=== PATIENT | female | born 1955 | race Caucasian/White ===

== ENCOUNTER → 2017-09-11 13:48 | Outpatient (CLI) | payer OTHER, SELFPAY ==
--- NOTE | 2017-09-11 13:51 | BI_ITS ---
MAMMOGRAPHY - BILATERAL SCREENING REASON FOR EXAM: Female, 61 years old. Routine annual screening examination. PERTINENT HISTORY: Non-contributory. TECHNIQUE: Digital bilateral breast mary (3D mammographic acquisition) in the CC and MLO projections. 2-D mediolateral oblique (MLO) and craniocaudad (CC) views of both breasts were obtained. CAD: Full Field Digital Mammography with Computer Added Detection was performed. COMPARISON: Comparison is made with prior study dated July 26, 2016 and March 24, 2015. FINDINGS: Breast Composition: There are scattered areas of fibroglandular density. There are no dominant masses or suspicious calcifications. Stable 9 mm well-defined nodule in the upper lateral portion of the left breast. This most likely represents a small lymph node. No other significant abnormalities are identified. There has been no significant change since the prior study. BI/SCREENING MAMM (CAD), BILAT IMPRESSION: Stable bilateral screening mammogram. Yearly follow-up mammogram recommended. (A) ASSESSMENT CATEGORY: BIRADS Category 2: Benign. A letter regarding these results will be sent to the patient by the facility within 30 days. Approximately 10% of breast cancers are not detected by mammography. A normal mammogram should not delay biopsy of a clinically suspicious abnormality. [id number] Electronically Signed: Jason Villafuerte MD at 12:42 EDT Tel [phone], Service support ,
== END ==
PROVIDERS: Family Provider Internal Medicine; PCP Internal Medicine; Visit Provider Obstetrics & Gynecology
DX: Z12.31 Encounter for screening mammogram for malignant neoplasm of breast (principal)
CPT/HCPCS: 77063; 77067

== ENCOUNTER 2018-08-23 14:19 | Emergency (ER) | payer OTHER, SELFPAY ==
[2018-08-23 14:19] VITALS: BP 150/90; PULSE 71; RESP 16; TEMP 36.4; O2SAT 99; BMI 34.1
--- NOTE | 2018-08-23 16:35 | ED.VISSUMM ---
- ER Visit Summary Date of Service: 08/23/18 Chief Complaint: Left third finger laceration History of Present Illness: The patient is a 62 F presents for evaluation of a left ring finger laceration. Patient was slicing a cucumber with a clean kitchen knife and accidentally incised her left third fingertip. Tetanus is up-to-date. Patient is right-handed. She went to urgent care but they had difficulty getting the blood controlled so she was referred to the emergency department. She is not on any blood thinners. She does not smoke or use alcohol. She has been using some NSAIDs for recent musculoskeletal pain. Physical Examination: Patient is well-nourished well-developed sitting in bed in no distress. Left third finger is bandaged. Patient has brisk cap refill in the fingertip. Sensation and motor function intact in the finger. Examination shows a triangular-shaped flap involving the epidermis and dermis, attached at the distal portion of the flap, 1 cm x 1 cm x 0.8 cm at the distal flap, on the distal phalanx ulnar surface of the finger pad. Hemorrhage currently controlled. Test Results: [] Emergency Department Course and Treatment: A finger tourniquet was placed at the base of the left third finger. The finger laceration was then copiously irrigated with tap water and cleansed with soap, and the lap was lifted and underlying incision was also irrigated. There is limited attachment of the flap to the finger with the blood supply being at the distal portion of the flap. It is superficial enough that at this time, suturing is not indicated. The flap was replaced into its physiologic location and the medial and lateral edges were dermabonded in place. It was secured with Steri-Strips. The tourniquet was removed. Hemostasis was maintained. It was dressed and patient was given wound care instructions. She was discharged home and will return if any worsening or rebleeding without ability to control it at home with direct pressure. Treatment Plan: [] Disposition: [] Impression: Incision of left middle finger This note was generated with [employer] dictation software. It may contain incorrect words, spelling, and punctuation that were not noted in review of the chart prior to signing ED Disposition - Plan for ED Patient: Disposition: Home or Assisted Living Instructions: ED Laceration Ext Skin Glue, ED Laceration Hand Referrals: Laura Mckeon MD [Primary Care Provider] - 3-5 Days if not improving Additional Instructions: Leave the bandage in place on your finger for the next 24 hours. Do not use antibacterial ointment on the incision while the Steri-Strips are still in place, as this will make them loosen and come off. You may gently cleanse the area with warm water and gentle soap, but do not scrub, soak or move the Steri-Strips. If at any time you have severe pain, swelling, redness, red streaking, or any purulent discharge coming from under the flap, return immediately to the emergency department for another evaluation.
== END 2018-08-23 16:50 | disposition home or self-care (01) ==
PROVIDERS: Emergency Provider Emergency Medicine; Family Provider Internal Medicine; PCP Internal Medicine
DX: S61.213A Laceration without foreign body of left middle finger without damage to nail, initial encounter (principal); W26.0XXA Contact with knife, initial encounter; Y93.G1 Activity, food preparation and clean up; Y92.000 Kitchen of unspecified non-institutional (private) residence as the place of occurrence of the external cause; Y99.8 Other external cause status
CPT/HCPCS: 99282

== ENCOUNTER → 2018-09-11 | Outpatient (CLI) | payer OTHER, SELFPAY ==
[2018-08-23 14:19] VITALS: BMI 34.1
[2018-09-18 09:10] LABS: HPV Reflexed? NOT INDICATED
== END | disposition home or self-care (01) ==
LOC: LABSPEC 16:10
PROVIDERS: Visit Provider Obstetrics & Gynecology
DX: Z12.4 Encounter for screening for malignant neoplasm of cervix (principal)
CPT/HCPCS: 87624; 88175; G0145

== ENCOUNTER → 2018-09-26 | Outpatient (CLI) | payer OTHER, SELFPAY ==
--- NOTE | 2018-09-26 13:22 | BI_ITS ---
MAMMOGRAPHY - BILATERAL SCREENING 3-D TOMOSYNTHESIS REASON FOR EXAM: Female, 62 years old. Bilateral Screening 3-D tomosynthesis PERTINENT HISTORY: No significant family history. TECHNIQUE: 2-D mammograms and 3-D Tomosynthesis of the breast (s) were performed. CAD was performed. COMPARISON: September 13, 2017 FINDINGS: Breast composition: scattered fibroglandular tissue. No dense spiculated masses or suspicious microcalcifications are identified. No architectural distortion is identified. There is no skin thickening or retraction. There has been no significant change since the prior study of 09/13/2017 BI/SCREEN MAMM (CAD) W/SCOTT BILAT IMPRESSION: No mammographic signs of malignancy. Routine yearly mammograms recommended. ASSESSMENT CATEGORY: BIRADS Category 1: Negative. A letter regarding these results will be sent to the patient by the facility within 30 days. FOLLOW UP RECOMMENDATION: Yearly follow up mammogram recommended. (A) Approximately 10% of breast cancers are not detected by mammography. A normal mammogram should not delay biopsy of a clinically suspicious abnormality. Electronically Signed: Harish Monae, at 15:11 EDT Tel , Service support ,
== END | disposition home or self-care (01) ==
LOC: OPBI 13:20
PROVIDERS: Family Provider Internal Medicine; PCP Internal Medicine; Referring Provider Obstetrics & Gynecology; Visit Provider Obstetrics & Gynecology
DX: Z12.31 Encounter for screening mammogram for malignant neoplasm of breast (principal)
CPT/HCPCS: 77063; 77067

== ENCOUNTER → 2019-09-17 14:12 | Outpatient (CLI) | payer OTHER, SELFPAY ==
--- NOTE | 2019-09-17 11:45 | EMB_PTH ---
PATIENT: CHASITY HURT LOC: [facility] U#:[id number] AGE/SX: 69/F ROOM: RE09/17/[address]: Dr. Levi Munoz MD : 1955 BED: DIS: SPEC #: [id number] RECD: 09/17/19 13:56 STATUS: BALAJI REQ #: [id number] DORY: 09/17/19 11:[address]: Levi Munoz DEPT: SURGICAL PATHOLOGY RECD BY: Andreas Dougherty ENTERED: 09/18/19 08:18 SP TYPE: ENDOM BX/C CHERIE DR: Dr. Laura Mckeon MD Tissues: Endometrium, NOS Procedures: Surgery Specimen Level IV HEADER OPERATION: Endometrial biopsy PRE-OP DIAGNOSIS: N95.0 TISSUE SUBMITTED: Endometrial biopsy MICROSCOPIC DIAGNOSIS Endometrium, biopsy: Scant strips of benign glandular mucosa. AM:mervin 09/21/19 MICROSCOPIC DESCRIPTION Slides are reviewed. GROSS DESCRIPTION Received in fixative is one container labeled with the patient's name and designated endometrial biopsy. The specimen consists of multiple irregular fragments of light davis mucoid tissue that in aggregate measure 1 x 0.5 x <0.1 cm. The specimen is totally submitted in one cassette. / AM:mervin 09/18/19 TC:5 CPT: 89326
[2019-09-22 16:34] LABS: HPV Reflexed? NOT INDICATED
== END ==
PROVIDERS: PCP Internal Medicine; Referring Provider Obstetrics & Gynecology; Visit Provider Obstetrics & Gynecology
DX: Z12.4 Encounter for screening for malignant neoplasm of cervix (principal); N95.0 Postmenopausal bleeding
CPT/HCPCS: 88175; 88305; G0145

== ENCOUNTER → 2019-10-05 | Outpatient (CLI) | payer OTHER, SELFPAY ==
--- NOTE | 2019-10-05 12:32 | BI_ITS ---
MAMMOGRAPHY - BILATERAL SCREENING REASON FOR EXAM: Female, 63 years old. Routine annual screening examination. PERTINENT HISTORY: Non-contributory. Remote left stereotactic breast biopsy. TECHNIQUE: Digital bilateral breast scott (3D mammographic acquisition) in the CC and MLO projections. 2-D mediolateral oblique (MLO) and craniocaudad (CC) views of both breasts were obtained. CAD: Full Field Digital Mammography with Computer Added Detection was performed. COMPARISON: Comparison is made with prior examination dated September 26, 2018 and September 11, 2017. FINDINGS: Breast Composition: There are scattered areas of fibroglandular density. There are no dominant masses or suspicious calcifications. Stable 6.4 mm well-defined nodule in the axillary region of the left breast suggestive of a small benign-appearing lymph node. No other significant abnormalities are identified. There has been no significant change since the prior study. BI/SCREEN MAMM (CAD) W/SCOTT BILAT IMPRESSION: Stable bilateral screening mammogram. Yearly follow-up mammogram recommended. (A) ASSESSMENT CATEGORY: BIRADS Category 2: Benign. A letter regarding these results will be sent to the patient by the facility within 30 days. Approximately 10% of breast cancers are not detected by mammography. A normal mammogram should not delay biopsy of a clinically suspicious abnormality. [id number] Electronically Signed: Jason Villafuerte, at 13:53 EDT , Service support ,
== END | disposition home or self-care (01) ==
LOC: OPBI 12:30
PROVIDERS: PCP Internal Medicine; Referring Provider Obstetrics & Gynecology; Visit Provider Obstetrics & Gynecology
DX: Z12.31 Encounter for screening mammogram for malignant neoplasm of breast (principal)
CPT/HCPCS: 77063; 77067

== ENCOUNTER → 2020-11-03 11:11 | Outpatient (CLI) | payer OTHER, SELFPAY ==
--- NOTE | 2020-11-03 11:18 | BI_ITS ---
MAMMOGRAPHY - BILATERAL SCREENING REASON FOR EXAM: Female, 64 years old. Routine annual screening examination. PERTINENT HISTORY: Previously obtained on 10/05/2019 TECHNIQUE: Digital bilateral breast scott (3D mammographic acquisition) in the CC and MLO projections. 2-D mediolateral oblique (MLO) and craniocaudad (CC) views of both breasts were obtained. CAD: Full Field Digital Mammography with Computer Added Detection was performed. COMPARISON: Previous mammogram obtained on 11/03/2020 FINDINGS: Breast Composition: Heterogeneous There are no dominant masses or suspicious calcifications. There is a nodular density noted in the superior lateral aspect of the left breast which is smooth and rounded and was seen previously and is unchanged. This probably represents a fibroadenoma and/or cyst. BI/SCRN MAMM (CAD)W/SCOTT BILAT IMPRESSION: Stable bilateral screening mammogram. Yearly follow-up mammogram recommended. (A) ASSESSMENT CATEGORY: BIRADS Category 2: Benign. A letter regarding these results will be sent to the patient by the facility within 30 days. BR2 Approximately 10% of breast cancers are not detected by mammography. A normal mammogram should not delay biopsy of a clinically suspicious abnormality. [id number] Electronically Signed: Levi Fraire DO at 12:17 EDT Tel , Service support ,
== END ==
PROVIDERS: PCP Internal Medicine; Referring Provider Obstetrics & Gynecology; Visit Provider Obstetrics & Gynecology
DX: Z12.31 Encounter for screening mammogram for malignant neoplasm of breast (principal)
CPT/HCPCS: 77063; 77067

== ENCOUNTER → 2021-11-24 | Outpatient (CLI) | payer OTHER, SELFPAY ==
[2021-12-03 14:13] LABS: HPV APTIMA, High Risk Negative (Negative)
== END | disposition home or self-care (01) ==
LOC: LABSPEC 11-27 09:57
PROVIDERS: PCP Internal Medicine; Visit Provider Obstetrics & Gynecology
DX: Z12.4 Encounter for screening for malignant neoplasm of cervix (principal)
CPT/HCPCS: 87624; 88175; G0145

== ENCOUNTER → 2023-05-29 | Outpatient (CLI) | payer MEDICARE, SELFPAY ==
[2023-05-29 15:45] LABS: ALB/GLOB Ratio 1.6 RATIO (0.9-2.4); AST(SGOT) 15 U/L (15-37); Alanine Aminotransfer ALT/SGPT 23 U/L (13-56); Albumin, Serum 4.7 g/dL (3.2-5.0); Alkaline Phosphatase 34 U/L (45-117); Anion Gap 7 (5-15); BUN 19 mg/dL (7-18); BUN/Creat Ratio 21.9 RATIO (10-20); Calcium,Total 10.2 mg/dL (8.5-10.1); Chloride 106 mmol/L (98-107); Cholesterol 152 mg/dL (200); Creatinine, Serum 0.87 mg/dL (0.55-1.02); EST Glomerular Filtration Rate 70 mL/min (>60); Est Glom Filt Rate - Afr Amer 84 mL/min (>60); Glucose 109 mg/dL (74-106); High Density Lipoprotein 58 mg/dL; Potassium 4.3 mmol/L (3.5-5.1); Protein, Total 7.7 g/dL (6.4-8.2); Sodium Level 139 mmol/L (136-145); Thyroid Stim Hormone (TSH) 0.79 uIU/mL (0.358-3.74); Triglycerides 90 mg/dL; Very Low Density Lipoprotein 18 mg/dL (5-40)
[2023-05-29 16:21] LABS: Microalbumin,Random Urine 16.1 mg/L (NO RANGE EST.); Microalbumin:Creatinine Ratio 32.7 mg/g CRE (<30 mg/g CRE)
== END | disposition home or self-care (01) ==
LOC: LAB 14:30
PROVIDERS: PCP Internal Medicine; Referring Provider Nurse Practitioner Family; Visit Provider Nurse Practitioner Family
DX: E11.3293 Type 2 diabetes mellitus with mild nonproliferative diabetic retinopathy without macular edema, bilateral (principal); Z79.4 Long term (current) use of insulin
CPT/HCPCS: 36415; 80053; 80061; 82043; 82570; 84443

== ENCOUNTER → 2023-05-30 | Outpatient (CLI) | payer MEDICARE, SELFPAY ==
[2023-05-30 13:44] LABS: PTHIN 19.8 pg/mL (18.4-80.1)
[2023-05-30 13:47] LABS: Vitamin D,25 Hydroxy 37.2 ng/mL
== END | disposition home or self-care (01) ==
LOC: LAB 12:37
PROVIDERS: PCP Internal Medicine; Referring Provider Nurse Practitioner Family; Visit Provider Nurse Practitioner Family
DX: E55.9 Vitamin D deficiency, unspecified (principal)
CPT/HCPCS: 36415; 82306; 83970

== ENCOUNTER → 2024-05-12 | Outpatient (CLI) | payer MEDICARE, SELFPAY ==
--- NOTE | 2024-05-12 06:54 | BI_ITS ---
PROCEDURE: SCRN MAMM (CAD)W/SCOTT BILAT REASON FOR EXAM: F, Age 68 y/o, no family history. Routine mammographic examination. TECHNIQUE: Bilateral screening digital breast tomosynthesis with 2D and 3D images. Computer aided detection. COMPARISON: Prior exam(s) dating back to November 03, 2020.. FINDINGS: There are scattered areas of fibroglandular density. Stable 6.4 mm well-defined nodule in the deep upper lateral aspect of the left breast. Targeted sonographic correlation recommended. No suspicious masses, areas of developing architectural distortion, or suspicious calcifications. BI/SCRN MAMM (CAD)W/SCOTT BILAT IMPRESSION: BI-RADS 0: INCOMPLETE - NEED ADDITIONAL IMAGING EVALUATION. Follow-up code: Sonographic follow-up recommended. The patient will be notified of the results by letter. Reading Location: [place] [id number]
--- NOTE | 2024-05-12 06:58 | BD_ITS ---
PROCEDURE: DEXA BONE DENSITY STUDY REASON FOR EXAM: F, age 68 y/o . Patient is postmenopausal.. TECHNIQUE: DEXA scan of the lumbar spine and both hips. COMPARISON: None. FINDINGS: Lumbar Spine (L1-L4): g/cm2 (1.052)/T-score (0.0)/Z-score (1.9) findings are suggestive of normal with a low fracture risk. Left Femur Total: g/cm2 (0.950)/T-score (0.1)/Z-score (1.4) Left Femoral Neck: g/cm2 (0.824)/T-score (-0.2)/Z-score (1 point) Right Femur Total: g/cm2 (0.895)/T-score (-0.4)/Z-score (0.9) Right Femoral Neck: g/cm2 (0.772)/T-score (-0.7)/Z-score 0.9 BD/Dexa Bone Density Study IMPRESSION: (The patient is considered normal as outlined below according to [employer] (WHO) criteria with a low fracture risk. Reading Location: [id number]
== END | disposition home or self-care (01) ==
LOC: OPBD 06:53
PROVIDERS: PCP Internal Medicine; Referring Provider Nurse Practitioner Women's Health; Visit Provider Nurse Practitioner Women's Health
DX: Z12.31 Encounter for screening mammogram for malignant neoplasm of breast (principal); M81.0 Age-related osteoporosis without current pathological fracture
CPT/HCPCS: 77063; 77067; 77080

== ENCOUNTER → 2024-05-21 | Outpatient (CLI) | payer MEDICARE, SELFPAY ==
--- NOTE | 2024-05-21 10:55 | US_ITS ---
PROCEDURE: BREAST LIMITED UNILATERAL REASON FOR EXAM: Abnormal screening mammogram. TECHNIQUE: Targeted left breast sonogram. COMPARISON: Comparison is made with prior mammogram dated May 12, 2024. FINDINGS: LEFT: Left breast ultrasound was targeted to the upper-outer quadrant.. There is a 7 mm x 4 mm x 2 mm benign-appearing lymph node at the 1 o'clock position of the breast at 6 cm from the nipple. US/Breast Limited Unilateral IMPRESSION: 7 mm x 4 mm x 2 mm benign-appearing lymph node at the 1 o'clock position of the breast at 6 cm from the nipple. Follow-up code: Routine Follow-up BI-RADS category: 2 [id number]
== END | disposition home or self-care (01) ==
LOC: OPUS 10:54
PROVIDERS: PCP Internal Medicine; Referring Provider Nurse Practitioner Women's Health; Visit Provider Nurse Practitioner Women's Health
DX: R92.8 Other abnormal and inconclusive findings on diagnostic imaging of breast (principal)
CPT/HCPCS: 76642

== ENCOUNTER → 2024-05-27 | Outpatient (CLI) | payer MEDICARE, SELFPAY ==
[2024-05-27 15:14] LABS: Absolute Lymphocyte Count 1.56 X10^3/uL (0.83-4.51); Absolute Neutrophil Count 2.9 X10^3/uL (2.0-7.7); Basophil# 0.02 X10^3/uL; Basophil% 0.4 % (0-1); Eosinophil# 0.04 X10^3/uL; Eosinophils% 0.8 % (0-5); Hematocrit 35.7 % (37-47); Hemoglobin 11.4 g/dL (12.0-15.0); Lymphocyte # 1.56 X10^3/ul (0.83-4.51); Lymphocyte % 31.7 % (19-41); Mean Corp Hgb Conc 31.9 g/dL (32-36); Mean Corpuscular Hgb 28.4 pg (27.0-32.0); Mean Platelet Vol. 10.2 fl (6.2-12.0); Monocyte# 0.36 X10^3/uL; Monocyte% 7.3 % (0-10); NRBC Flagged by Analyzer 0 % (0-5); Neutrophil # 2.93 X10^3/uL (2.7-7.7); Neutrophil % 59.6 % (47-70); Platelet Count 305 K/mm3 (150-450); RBC Distribution Width CV 14.1 % (11.6-14.6); RBC Distribution Width SD 45.8 fl (35.1-43.9); Red Blood Count 4.01 M/mm3 (4.2-5.4); White Blood Count 4.9 K/mm3 (4.4-11.0)
[2024-05-27 16:13] LABS: Microalbumin,Random Urine 21.3 mg/L (NO RANGE EST.)
[2024-05-27 16:16] LABS: AST(SGOT) 18 U/L (<=31); Alanine Aminotransfer ALT/SGPT 15 U/L (<=34); Albumin, Serum 4.8 g/dL (3.4-4.8); Alkaline Phosphatase 31 U/L (35-104); Anion Gap 11 (5-15); BUN 20 mg/dL (4-19); BUN/Creat Ratio 24.8 RATIO (10-20); Calcium 9.4 mg/dL (7.6-11.0); Carbon Dioxide 23.4 mmol/L (22.0-29.0); Chloride 105 mmol/L (96-108); Cholesterol 131 mg/dL (<=200); Creatinine, Serum 0.8 mg/dL (0.6-1.0); EST Glomerular Filtration Rate 83 (>60); Globulin 2.3 g/dL (2.2-4.2); Glucose 100 mg/dL (70-99); High Density Lipoprotein 54 mg/dL; Low Density Lipoprotein Calc. 62 mg/dL; Potassium 4.4 mmol/L (3.3-5.1); Protein, Total 7.1 g/dL (5.9-8.4); Sodium Level 139 mmol/L (133-145); Thyroid Stim Hormone (TSH) 0.392 uIU/mL (0.300-4.200); Triglycerides 78 mg/dL; Very Low Density Lipoprotein 16 mg/dL (5-40); cholesterol:hdl ratio screen 2.43
== END | disposition home or self-care (01) ==
LOC: LAB 14:37
PROVIDERS: PCP Internal Medicine; Referring Provider Nurse Practitioner Family; Visit Provider Nurse Practitioner Family
DX: E11.3293 Type 2 diabetes mellitus with mild nonproliferative diabetic retinopathy without macular edema, bilateral (principal); Z79.4 Long term (current) use of insulin
CPT/HCPCS: 36415; 80053; 80061; 82043; 82570; 84443; 85025

== ENCOUNTER → 2025-01-04 | Outpatient (CLI) | payer MEDICARE, SELFPAY ==
--- NOTE | 2025-01-04 08:43 | CDU_ITS ---
Reason For Study Reason For Study: Carotid Stenosis Rt. Velocities/BP Lt. Velocities/BP Prox CCA 75/21 cm/sec. Prox CCA 88/22 cm/sec. Mid CCA 91/21 cm/sec. Mid CCA 71/23 cm/sec. Dist CCA 74/20 cm/sec. Dist CCA 64/19 cm/sec. Prox ICA 74/20 cm/sec. Prox ICA 85/23 cm/sec. Mid ICA 110/31 cm/sec. Mid ICA 100/27 cm/sec. Dist ICA 79/27 cm/sec. Dist ICA 122/30 cm/sec. Rt. ICA/CCA = 1.2. Lt. ICA/CCA = 1.7. Prox ECA 86/10 cm/sec. Prox ECA 98/12 cm/sec. Rt. Vert. 43/13 cm/sec. Lt. Vert. 67/14 cm/sec. Right Extracranial There is intimal thickening but no significant atherosclerotic plaque noted in the right common carotid artery. There is heterogeneous, irregular atherosclerotic plaque noted in the right internal carotid artery. There is heterogeneous, irregular atherosclerotic plaque noted in the right external carotid artery. Antegrade flow is noted in the right vertebral artery. Left Extracranial There is intimal thickening but no significant atherosclerotic plaque noted in the left common carotid artery. There is heterogeneous, irregular atherosclerotic plaque noted in the left internal carotid artery. There is intimal thickening but no significant atherosclerotic plaque noted in the left external carotid artery. Antegrade flow is noted in the left vertebral artery. Procedure Carotid Duplex [id number]. This is a Carotid Duplex examination using B-mode, color flow and specral Doppler. Exam performed in department. VL/Carotid Duplex Ultrasound Interpretation Summary Mild (<50%) stenosis right extracranial internal carotid. Mild (<50%) stenosis left extracranial internal carotid. Flow within the vertebral arteries is antegrade bilaterally. Ordering Physician: Frank Torre Referring Physician: Jihan Hernandez Performed By: Alice Torres, RDCS, RVT
--- NOTE | 2025-01-04 08:43 | CDU_ITS ---
Reason For Study Reason For Study: Carotid Stenosis Rt. Velocities/BP Lt. Velocities/BP Prox CCA 75/21 cm/sec. Prox CCA 88/22 cm/sec. Mid CCA 91/21 cm/sec. Mid CCA 71/23 cm/sec. Dist CCA 74/20 cm/sec. Dist CCA 64/19 cm/sec. Prox ICA 74/20 cm/sec. Prox ICA 85/23 cm/sec. Mid ICA 110/31 cm/sec. Mid ICA 100/27 cm/sec. Dist ICA 79/27 cm/sec. Dist ICA 122/30 cm/sec. Rt. ICA/CCA = 1.2. Lt. ICA/CCA = 1.7. Prox ECA 86/10 cm/sec. Prox ECA 98/12 cm/sec. Rt. Vert. 43/13 cm/sec. Lt. Vert. 67/14 cm/sec. Right Extracranial There is intimal thickening but no significant atherosclerotic plaque noted in the right common carotid artery. There is heterogeneous, irregular atherosclerotic plaque noted in the right internal carotid artery. There is heterogeneous, irregular atherosclerotic plaque noted in the right external carotid artery. Antegrade flow is noted in the right vertebral artery. Left Extracranial There is intimal thickening but no significant atherosclerotic plaque noted in the left common carotid artery. There is heterogeneous, irregular atherosclerotic plaque noted in the left internal carotid artery. There is intimal thickening but no significant atherosclerotic plaque noted in the left external carotid artery. Antegrade flow is noted in the left vertebral artery. Procedure Carotid Duplex [id number]. This is a Carotid Duplex examination using B-mode, color flow and specral Doppler. Exam performed in department. VL/Carotid Duplex Ultrasound Interpretation Summary Mild (<50%) stenosis right extracranial internal carotid. Mild (<50%) stenosis left extracranial internal carotid. Flow within the vertebral arteries is antegrade bilaterally. Ordering Physician: Frank Torre Referring Physician: Jihan Hernandez Performed By: Alice Torres, RDCS, RVT
--- OUTSIDE RECORDS SUMMARY | 2025-01-04 09:26 | XMS RPT_ITS | CCD ---
Author Organization [facility] Care Team Providers Care Anesthesiologist Assistant Certified Name Role Phone Chilo Mckeon MD Primary Care Provider [facility], [place] Unavailable [facility], [place] Unavailable Dr. Chilo Mckeon Primary Care Provider Dr. Chilo Mckeon Referring Provider Dr. Melquiades Scherer Attending Provider Chilo Mckeon MD Primary Care Provider [facility], [place] Unavailable [facility], [place] Unavailable Chilo Mckeon MD Primary Care Provider [facility], [place] Unavailable [facility], [place] Unavailable [facility], [place] Unavailable Dr. Chilo Mckeon Primary Care Provider Dr. Chilo Mckeon Referring Provider Dr. Hector Hernandez Attending Provider [phone] ROSALIA Gomez Attending Provider Dr. Hector Hernandez Primary Care Provider Chilo Mckeon MD Primary Care Provider Eliezer SUPERVISOR OF RESEARCH.WRAPPER STEMMER HAND, Peyton Unavailable Lm SUPERVISOR OF RESEARCH.PROJECT CONSTRUCTION MANAGER, Karo Unavailable Lm SUPERVISOR OF RESEARCH.PROJECT CONSTRUCTION MANAGER, Karo Unavailable [phone] David GALLO, Dr. Bobo Attending Provider David GALLO, Dr. Bobo Referring Provider Powers IRRIGATOR-C, Barbara Attending Provider Hedy IRRIGATOR-C, Barbara Referring Provider David GALLO, Dr. Bobo Primary Care Provider [phone] Jason IRRIGATOR-C, Sylwia Attending Provider Jason IRRIGATOR-C, Sylwia Referring Provider Lm SUPERVISOR OF RESEARCH.PROJECT CONSTRUCTION MANAGER, Karo Unavailable David GALLO, Dr. Bobo Primary Care Provider [phone] Dr. Hector Hernandez MD Referring Provider Jason IRRIGATOR-C, Sylwia Attending Provider Hector Hernandez MD Primary Care Provider [phone] [place], Hector Referring Unavailable Jason, Sylwia Attending Unavailable [place], Hector Primary Care Unavailable David, Hector Primary Care Unavailable JasonTeddyn Attending Unavailable [place], Hector Referring Unavailable [place], Hector Referring Unavailable [place], Hector Attending Unavailable Hedy IRRIGATOR, Barbara Attending Unavailable Hedy IRRIGATOR, Barbara Referring Unavailable David, Hector Primary Care Unavailable Powers IRRIGATOR, Barbara Attending Unavailable Hedy IRRIGATOR, Barbara Referring Unavailable David, Hector Primary Care Unavailable [place], Hector Primary Care Unavailable Jason Sylwia Attending Unavailable Jason, Sylwia Referring Unavailable Allergies Allergy Classification Reported Allergen(s) Allergy Type Date of Onset Reaction(s) Facility (5 sources) Penicillins Drug Allergy 2 [facility] (20 sources) Sulfacetamide Drug Allergy 2 [facility] (13 sources) Penicillins Drug Allergy 2 [facility] (5 sources) Penicillins Propensity to adverse reactions 2 [facility] [place] (5 sources) Sulfonamides (Antibiotic) Propensity to adverse reactions 2 Rash [facility] (2 sources) Penicillins Drug Allergy 2 [facility] (1 source) Penicillins Drug allergy (disorder) 5 [facility] (1 source) Sulfonamides (Antibiotic) Drug allergy (disorder) 5 [facility] Medications Current Medications Medication Drug Class(es) Dates Sig (Normalized) Sig (Original) Blood-Glucose Meter,Continuous (Freestyle Tyler 3 [place]) misc (1 source) Start: 11-27-2023 Blood-Glucose Meter,Continuous (Freestyle Tyler 3 [place]) misc Active 0 .Route 1 November 27, 2023 12:00am As directed Blood-Glucose Sensor (Freestyle Tyler 3 Plus Sensor) device (5 sources) Start: 11-11-2024 Blood-Glucose Sensor (Freestyle Tyler 3 Plus Sensor) device Active 0 .ROUTE .COMPLEX 6 3 November 11, 2024 9:07am Diabetes mellitus 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 CHANGE SENSOR EVERY 15 DAYS DIRECTED Start: 05-27-2024 Blood-Glucose Sensor (Freestyle Tyler 3 Plus Sensor) device Active 0 .Route 1 May 27, 2024 1:00am Diabetes mellitus jail (current) use of insulin As directed Start: 05-27-2024 End: 11-11-2024 Blood-Glucose Sensor (Freest yle Tyler 3 Plus Sensor) device Discontinued 0 .Route 6 May 27, 2024 1:00am November 11, 2024 9:07am Diabetes mellitus 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 1 sensor q 15 days Start: 05-27-2024 Blood-Glucose Sensor (Freestyle Tyler 3 Plus Sensor) device Active 0 .Route 1 May 27, 2024 1:00am As directed Start: 05-27-2024 Blood-Glucose Sensor (Freestyle Tyler 3 Plus Sensor) device Active 0 .Route 6 May 27, 2024 1:00am 1 sensor q 15 days Blood-Glucose,Artist Woodblock,Cont (Freestyle Tyler 3 [place]) misc (1 source) Start: 11-27-2023 Blood-Glucose,Artist Woodblock,Cont (Freestyle Tyler 3 [place]) misc Active 0 .Route 1 0 November 27, 2023 12:00am Diabetes mellitus jail (current) use of insulin As directed cholecalciferol 0.125 mg ora l capsule (5 sources) Vitamin D Start: 09-25-2021 take 1 capsule by mouth once daily Cholecalciferol (Vitamin D3) 125 mcg (5,000 unit) capsule Active 125 ug PO DAILY September 25, 2021 12:00am cholecalciferol, vitamin D3, (VITAMIN D3 ORAL) (15 sources) take 3 capsules by mouth once daily cholecalciferol, vitamin D3, (VITAMIN D3 ORAL) Take 5,000 Units by mouth once daily. Taking 3 capsules once daily Active take 3 capsules by mouth once da mel cholecalciferol, vitamin D3, (VITAMIN D3 ORAL) Take 5,000 Units by mouth once daily. Taking 3 capsules once daily 0 Active Comment on above: Take 5,000 Units by mouth once daily. Taking 3 capsules once daily citalopram 20 mg oral tablet (20 sources) Serotonin Reuptake Inhibitor Start: 9 End: 5 take 1 tablet by mouth once daily citalopram (CELEXA) 20 mg tablet Take 1 tablet by mouth once daily. ID#[id number] 90 tablet 3 08/28/2022 Active Comment on above: Take 1 tablet by teetee th once daily. ID#[id number] COMPOUNDED PRESCRIPTION (20 sources) Start: 2 COMPOUNDED PRESCRIPTION Allergy shots two shots all year long once a week. 04/20/2011 Active Start: 04-20-2011 COMPOUNDED PRE SCRIPTION Allergy shots two shots all year long once a week. 0 04/20/2011 Active Comment on above: Allergy shots two sh ots all year long once a week. CPAP (20 sources) Start: 03-11-2021 CPAP Indications: GABBIE on CPAP For replacement of recalled CPAP (continue current settlings 10cm H2O): Continue Mask (per patient preference) optional chin strap (if indicated) , filters, tubing, humidifier and lifetime supplies as needed. (G47.33, Z99.89) GABBIE on CPAP 1 Each 03/11/2021 Active Start: 03-11-2021 CPAP Indicatio ns: GABBIE on CPAP For replacement of recalled CPAP (continue current settlings 10cm H2O): Continue Mask (per patient preference) optional chin strap (if indicated) , filters, tubing, humidifier and lifetime supplies as needed. (G47.33, Z99.89) GABBIE on CPAP 1 Each 0 03/11/2021 Active Comment on above: For replacement of r ecalled CPAP (continue current settlings 10cm H2O): Continue Mask (per patient preference) optional chin strap (if indicated) , filters, tubing, humidifier and lifetime supplies as needed. (G47.33, Z99.89) GABBIE on CPAP fenofibrate 145 mg oral tablet (20 sources) Peroxisome Proliferator Receptor alpha Agonist Start: 03-03-20 End: 11-19-19 25 fenofibrate nanocrystallized (TRICOR) 145 mg tablet Indications: Mixed hyperlipidemia take 1 tablet daily 90 tablet 3 02/25/2023 Active Comment on above: Take 1 tablet by teetee once daily. ID#[id number] ferrous sulfate 325 mg oral tablet (5 sources) Start: 09-26-19 take 1 tablet by mouth once daily Ferrous Sulfate (Feosol) 325 mg (65 mg iron) tablet Active 325 mg PO DAILY September 25, 2021 12:00am flash glucose scanning reader (FREESTYLE TYLER 2 READER) (20 sources) Start: 03-03-20 flash glucose scanning reader (FREESTYLE TYLER 2 READER) Indications: Uncontrolled type 2 diabetes mellitus with hyperglycemia (HCC) Check sugars as directed. (E11.65) Uncontrolled type 2 diabetes mellitus with hyperglycemia (HCC) 1 Each 03/03/2021 Active Start: 03-03-2021 flash glucose scanning reader (FREESTYLE TYLER 2 READER) Indications: Uncontrolled type 2 diabetes mellitus with hyperglycemia (HCC) Check sugars as directed. (E11.65) Uncontrolled type 2 diabetes mellitus with hyperglycemia (HCC) 1 Each 0 03/03/2021 Active Comment on above: Check sugars as dire cted. (E11.65) Uncontrolled type 2 diabetes mellitus with hyperglycemia (HCC) flash glucose sensor (FREESTYLE TYLER 2 SENSOR) kit (20 sources) Start: 03-03-2021 flash glucose sensor (FREESTYLE TYLER 2 SENSOR) kit Indications: Uncontrolled type 2 diabetes mellitus with hyperglycemia (HCC) 1 Each every 2 weeks. (E11.65) Uncontrolled type 2 diabetes mellitus with hyperglycemia (HCC) 6 Each 4 03/03/2021 Active Comment on above: 1 Each every 2 weeks . (E11.65) Uncontrolled type 2 diabetes mellitus with hyperglycemia (HCC) Insulin Glargine-Yfgn (Semglee(Insulin Glarg-Yfgn)Pen) 100 unit/mL (3 mL) insulin pen (14 sources) Start: 05-05-2024 Insulin Glargine-Yfgn (Semglee(Insulin Glarg-Yfgn)Pen) 100 unit/mL (3 mL) insulin pen Active 20 U SC DAILY 18 04May 05, 2024 3:27pm Diabetes mellitus jail (current) use of insulin Start: 05-05-2024 Insulin Glargi ne-Yfgn (Semglee(Insulin Glarg-Yfgn)Pen) 100 unit/mL (3 mL) insulin pen Active 20 U SC DAILY May 05, 2024 3:27pm Start: 11-27-2023 End: 05-05-2024 Insulin Glargine-Yfgn (Semgl ee(Insulin Glarg-Yfgn)Pen) 100 unit/mL (3 mL) insulin pen Discontinued 20 U SC DAILY 18 04November 27, 2023 2:06pm May 05, 2024 3:27pm Diabetes mellitus jail (current) use of insulin Start: 11-27-2023 End: 05-05-2024 Insulin Glargine-Yfgn (Semgl ee(Insulin Glarg-Yfgn)Pen) 100 unit/mL (3 mL) insulin pen Discontinued 20 U SC DAILY November 27, 2023 2:06pm May 05, 2024 3:27pm Start: 08-21-2023 End: 11-27-2023 Insulin Glargine-Yfgn (Semgl ee(Insulin Glarg-Yfgn)Pen) 100 unit/mL (3 mL) insulin pen Discontinued 20 U SC DAILY August 21, 2023 1:13pm November 27, 2023 2:06pm Diabetes mellitus 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 Start: 08-21-2023 End: 11-27-2023 Insulin Glargine-Yfgn (Semgl ee(Insulin Glarg-Yfgn)Pen) 100 unit/mL (3 mL) insulin pen Discontinued 20 U SC DAILY August 21, 2023 1:13pm November 27, 2023 2:06pm Start: 12-31-2022 End: 01-08-2023 Insulin Glargine-Yfgn (Semgl ee(Insulin Glarg-Yfgn)Pen) 100 unit/mL (3 mL) insulin pen Discontinued 35 U SC DAILY 31.5 1 December 31, 2022 9:54am January 08, 2023 2:06pm Diabetes mellitus 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 Start: 12-31-2022 End: 01-08-2023 Insulin Glargine-Yfgn (Semgl ee(Insulin Glarg-Yfgn)Pen) 100 unit/mL (3 mL) insulin pen Discontinued 35 U SC DAILY 31.5 December 31, 2022 9:54am January 08, 2023 2:06pm Start: 12-31-2022 End: 01-08-2023 Insulin Glargine-Yfgn (Semgl ee(Insulin Glarg-Yfgn)Pen) 100 unit/mL (3 mL) insulin pen Discontinued 35 UNIT SC DAILY 31.December 31, 2022 8:54am January 08, 2023 1:06pm Start: 06-26-2022 End: 12-31-2022 Insulin Glargine-Yfgn (Semgl ee(Insulin Glarg-Yfgn)Pen) 100 unit/mL (3 mL) insulin pen Discontinued 45 U SC DAILY 45 June 26, 2022 12:00am December 31, 2022 9:55am Start: 06-26-2022 End: 12-31-2022 Insulin Glargine-Yfgn (Semgl ee(Insulin Glarg-Yfgn)Pen) 100 unit/mL (3 mL) insulin pen Discontinued 45 U SC DAILY June 26, 2022 12:00am December 31, 2022 9:55am Start: 06-26-2022 End: 12-31-2022 Insulin Glargine-Yfgn (Semgl ee(Insulin Glarg-Yfgn)Pen) 100 unit/mL (3 mL) insulin pen Discontinued 45 UNIT SC DAILY June 25, 2022 11:00pm December 31, 2022 8:55am krill oil 500 mg oral capsule (4 sources) Start: 12-26-2022 take 1 capsule by mouth once daily Krill Oil 500 mg capsule Active 500 mg PO DAILY December 26, 2022 12:00am losartan potassium 100 mg oral tablet (20 sources) Angiotensin 2 Receptor Goran Start: 09-11-2022 End: 11-12-2024 take 1 tablet by mouth once daily losartan (COZAAR) 100 mg tablet Take 1 tablet by mouth once daily. 90 tablet 3 09/11/2022 Active Start: 08-23-2018 End: 11-27-2023 take 1 tablet by mouth once daily Losartan 50 mg tablet Discontinued 50 mg PO DAILY 90 1 October 04, 2023 11:30am November 27, 2023 2:11pm Comment on above: Take 1 tablet by teetee once daily. 24 hr metFORMIN hydrochloride 500 mg extended release oral tablet (20 sources) Biguanide Start: take 2 tablets by mouth twice daily metFORMIN ER (GLUCOPHAGE XR) 500 mg 24 hr tablet Take 2 tablets by mouth twice daily. ID#[id number] As directed 360 tablet 3 08/28/2022 Active Start: 09-26-2020 End: 08-25-2022 take 2 tablets by mouth twice daily metFORMIN ER (GLUCOPHAGE XR) 500 mg 24 hr tablet Take 2 tablets by mouth twice daily. ID#[id number] As directed 360 tablet 3 08/11/2021 08/25/2022 Discontinued Start: 08-23-2018 End: 11-18-2024 take 2 tablets by mouth twice daily Metformin 500 mg tablet Active 1000 mg PO TWICE A DAY 360 3 November 18, 2024 9:29am Diabetes mellitus 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 Start: 08-23-2018 End: 05-06-2023 take 1000 mg by mouth twice daily Metformin Active 1000 MG PO TWICE A DAY 360 May 06, 2023 11:16am Comment on above: Take 2 tablets by mo [facility] twice daily. ID#[id number] As directed 24 hr metoprolol succinate 50 mg extended release oral tablet (20 sources) beta-Adrenergic Goran Start: 08-24-19 End: 07-29-19 take 1 tablet by mouth once daily metoprolol succinate ER (TOPROL XL) 50 mg 24 hr tablet Take 1 tablet by mouth once daily. 90 tablet 3 08/28/2022 Active Comment on above: Take 1 tablet by teetee once daily. rosuvastatin calcium 5 mg oral tablet (20 sources) HMG-CoA Reductase Inhibitor Start: 11-26-19 take 1 tablet by mouth every other day Rosuvastatin 5 mg tablet Active 5 mg PO every other day November 25, 2024 1:41pm Start: 09-25-2021 End: 02-20-2023 Rosuvastatin 5 mg tablet Discontinued NMA PO September 25, 2021 12:00am February 20, 2023 4:33pm Start: 11-25-2020 End: 11-25-2024 take 1 tablet by mouth once daily at bedtime rosuvastatin (CRESTOR) 5 mg tablet Take 1 tablet by mouth daily at bedtime. 90 tablet 3 11/25/2021 Active Comment on above: Take 1 tablet by teetee th daily at bedtime. SEMGLEE,INSULIN GLARG-YFGN,PEN 100 unit/mL (3 mL) insulin pen (16 sources) Start: 09-26-2021 SEMGLEE,INSULIN GLARG-YFGN,PEN 100 unit/mL (3 mL) insulin pen Inject 36 Units subcutaneously. 09/26/2021 Active Start: 09-26-2021 SEMGLEE,INSULI N GLARG-YFGN,PEN 100 unit/mL (3 mL) insulin pen Inject 36 Units subcutaneously. 0 09/26/2021 Active Start: 09-26-2021 SEMGLEE,INSULI N GLARG-YFGN,PEN 100 unit/mL (3 mL) insulin pen Inject 20 Units subcutaneously. 0 09/26/2021 Active Comment on above: Inject 20 Units subc utaneously. Inject 36 Units subc utaneously. Tirzepatide (Mounjaro) 15 mg/0.5 mL pen injector (20 sources) Start: 11-12-2024 Tirzepatide (Mounjaro) 15 mg/0.5 mL pen injector Active 15 mg SC EVERY WEEK 6 November 12, 2024 7:48am Diabetes mellitus jail (current) use of insulin Start: 07-01-2024 End: 11-12-2024 Tirzepatide (Mounjaro) 15 mg /0.5 mL pen injector Discontinued 15 mg SC EVERY WEEK 6 July 01, 2024 12:17pm November 12, 2024 7:48am Diabetes mellitus 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 Start: 05-05-2024 End: 07-01-2024 Tirzepatide (Mounjaro) 15 mg /0.5 mL pen injector Discontinued 15 mg SC EVERY WEEK 6 May 05, 2024 4:01pm July 01, 2024 12:17pm Diabetes mellitus 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 Start: 05-05-2024 Tirzepatide (M ounjaro) 15 mg/0.5 mL pen injector Active 15 mg SC EVERY WEEK May 05, 2024 4:01pm Start: 11-27-2023 End: 05-05-2024 Tirzepatide (Mounjaro) 15 mg /0.5 mL pen injector Discontinued 15 mg SC EVERY WEEK 6 November 27, 2023 2:05pm May 05, 2024 4:01pm Diabetes mellitus jail (current) use of insulin Start: 11-27-2023 End: 05-05-2024 Tirzepatide (Mounjaro) 15 mg /0.5 mL pen injector Discontinued 15 mg SC EVERY WEEK 6 November 27, 2023 2:05pm May 05, 2024 4:01pm Start: 08-19-2023 End: 11-27-2023 Tirzepatide (Mounjaro) 15 mg /0.5 mL pen injector Discontinued 15 mg SC EVERY WEEK 2 August 19, 2023 12:00am November 27, 2023 2:05pm Diabetes mellitus 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 Start: 08-19-2023 End: 11-27-2023 Tirzepatide (Mounjaro) 15 mg /0.5 mL pen injector Discontinued 15 mg SC EVERY WEEK 2 August 19, 2023 12:00am November 27, 2023 2:05pm Start: 03-04-2023 End: 10-02-2023 Tirzepatide (Mounjaro) 15 mg /0.5 mL pen injector Discontinued 15 mg SC EVERY WEEK 6 March 04, 2023 2:43pm October 02, 2023 10:20am Start: 03-04-2023 End: 10-02-2023 Tirzepatide (Mounjaro) 15 mg /0.5 mL pen injector Discontinued 15 mg SC EVERY WEEK March 04, 2023 2:43pm October 02, 2023 10:20am Start: 03-04-2023 Tirzepatide (M ounjaro) 15 mg/0.5 mL pen injector Active 15 MG SC EVERY WEEK 6 March 04, 2023 1:43pm Start: 03-01-2023 End: 03-04-2023 Tirzepatide (Mounjaro) 15 mg /0.5 mL pen injector Discontinued 15 mg SC EVERY WEEK 6 March 01, 2023 6:09pm March 04, 2023 2:43pm Start: 03-01-2023 End: 03-04-2023 Tirzepatide (Mounjaro) 15 mg /0.5 mL pen injector Discontinued 15 mg SC EVERY WEEK 6 March 01, 2023 6:09pm March 04, 2023 2:43pm Start: 03-01-2023 End: 03-04-2023 Tirzepatide (Mounjaro) 15 mg /0.5 mL pen injector Discontinued 15 MG SC EVERY WEEK 6 March 01, 2023 5:09pm March 04, 2023 1:43pm Start: 03-01-2023 End: 03-01-2023 Tirzepatide (Mounjaro) 15 mg /0.5 mL pen injector Discontinued 15 mg SC EVERY WEEK 2 March 01, 2023 1:00am March 01, 2023 6:09pm Start: 03-01-2023 End: 03-01-2023 Tirzepatide (Mounjaro) 15 mg /0.5 mL pen injector Discontinued 15 mg SC EVERY WEEK 2 March 01, 2023 1:00am March 01, 2023 6:09pm Start: 03-01-2023 End: 03-01-2023 Tirzepatide (Mounjaro) 15 mg /0.5 mL pen injector Discontinued 15 MG SC EVERY WEEK 2 March 01, 2023 12:00am March 01, 2023 5:09pm tirzepatide (MOUNJARO) 5 mg/0.5 mL pen injector (10 sources) Start: 04-11-2022 inject 1 mL by subcutaneous injection every week tirzepatide (MOUNJARO) 5 mg/0.5 mL pen injector Inject 1 mL subcutaneously one time a week. 04/11/2022 Active Start: 04-11-2022 inject 1 mL by subcu taneous injection every week tirzepatide (MOUNJARO) 5 mg/0.5 mL pen injector Inject 1 mL subcutaneously one time a week. 0 04/11/2022 Active Comment on above: Inject 1 mL subcutan eously one time a week. Completed/Discontinued Medications Medication Drug Class(es) Dates Sig (Normalized) Sig (Original) bio complete (5 sources) Start: 09-25-2021 End: 12-26-2022 bio complete Discontinued PO September 25, 2021 12:00am December 26, 2022 1:33pm Start: 09-25-2021 End: 12-26-2022 bio complete Discontinued PO September 24, 2021 11:00pm December 26, 2022 12:33pm Start: 09-25-2021 bio complete A ctive PO September 25, 2021 12:00am biotin 1 mg chewable tablet (5 sources) Start: 09-25-2021 End: 11-27-2023 take 1 tablet by mouth once daily Biotin 1,000 mcg tablet,chewable Discontinued 1000 ug PO DAILY September 25, 2021 12:00am November 27, 2023 1:50pm Blood-Glucose Meter,Continuous (DEXCOM ART CRITIC) misc (1 source) Start: 11-25-2020 End: 06-13-2021 Blood-Glucose Meter,Continuous (DEXCOM ART CRITIC) misc Indications: Uncontrolled type 2 diabetes mellitus with hyperglycemia (HCC) Use to check blood sugar 4 times daily. 1 Each 0 11/25/2020 06/13/2021 Discontinued Comment on above: Use to check blood sugar 4 times daily. Blood-Glucose Sensor (DEXCOM G6 SENSOR) kristal (1 source) Start: 11-25-2020 End: 06-13-2021 Blood-Glucose Sensor (DEXCOM G6 SENSOR) kristal Indications: Uncontrolled type 2 diabetes mellitus with hyperglycemia (HCC) Use to check blood sugar 4 times daily. Replace every 10 days. 9 Each 3 11/25/2020 06/13/2021 Discontinued Comment on above: Use to check blood sugar 4 times daily. Replace every 10 days. Blood-Glucose Sensor (Freestyle Tyler 3 Sensor) device (6 sources) Start: 05-05-2024 End: 05-27-2024 Blood-Glucose Sensor (Freestyle Tyler 3 Sensor) device Discontinued 0 .Route 6 May 05, 2024 3:28pm May 27, 2024 3:26pm Diabetes mellitus 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 1 sensor q 14 days Start: 05-05-2024 End: 05-27-2024 Blood-Glucose Sensor (Freest yle Tyler 3 Sensor) device Discontinued 0 .Route May 05, 2024 3:28pm May 27, 2024 3:26pm 1 sensor q 14 days Start: 12-17-2023 End: 05-05-2024 Blood-Glucose Sensor (Freest yle Tyler 3 Sensor) device Discontinued 0 .Route 6 December 17, 2023 9:31am May 05, 2024 3:28pm Diabetes mellitus jail (current) use of insulin 1 sensor q 14 days Start: 12-17-2023 End: 05-05-2024 Blood-Glucose Sensor (Freest yle Tyler 3 Sensor) device Discontinued 0 .Route December 17, 2023 9:31am May 05, 2024 3:28pm 1 sensor q 14 days Start: 11-27-2023 End: 12-17-2023 Blood-Glucose Sensor (Freest yle Tyler 3 Sensor) device Discontinued 0 .Route 6 November 27, 2023 12:00am December 17, 2023 9:31am Diabetes mellitus jail (current) use of insulin 1 sensor q 14 days Start: 11-27-2023 End: 12-17-2023 Blood-Glucose Sensor (Freest yle Tyler 3 Sensor) device Discontinued 0 .Route November 27, 2023 12:00am December 17, 2023 9:31am 1 sensor q 14 days Blood-Glucose Transmitter (DEXCOM G6 TRANSMITTER) kristal (5 sources) Start: 11-25-2020 End: 10-16-2021 Blood-Glucose Transmitter (DEXCOM G6 TRANSMITTER) kristal Indications: Uncontrolled type 2 diabetes mellitus with hyperglycemia (HCC) Use to check blood sugar 4 times daily. Replace every 90 days. 1 Each 3 11/25/2020 10/16/2021 Discontinued Start: 11-25-2020 Blood-Glucose Transmitter (DEXCOM G6 TRANSMITTER) kristal Indications: Uncontrolled type 2 diabetes mellitus with hyperglycemia (HCC) Use to check blood sugar 4 times daily. Replace every 90 days. 1 Each 3 11/25/2020 Active Comment on above: Use to check blood s ugar 4 times daily. Replace every 90 days. cefuroxime 500 mg oral tablet (5 sources) Cephalosporin Antibacterial Start: 1 End: 2 take 1 tablet by mouth twice daily cefUROXime (CEFTIN) 500 mg tablet Indications: Acute non-recurrent maxillary sinusitis Take 1 tablet by mouth twice daily. Extend course if sinus infection not resolved with 10 days treatment 20 tablet 1 03/03/2021 10/16/2021 Discontinued Comment on above: Take 1 tablet by teetee twice daily. Extend course if sinus infection not resolved with 10 days treatment Dulaglutide (20 sources) GLP-1 Receptor Agonist Start: 2 End: 3 Dulaglutide (Trulicity) 3 mg/0.5 mL pen injector Discontinued 3 mg SC EVERY WEEK 6 September 26, 2021 12:00am April 11, 2022 2:50pm Start: 09-26-2021 End: 04-11-2022 Dulaglutide (Trulicity) 3 mg /0.5 mL pen injector Discontinued 3 mg SC EVERY WEEK 6 September 26, 2021 12:00am April 11, 2022 2:50pm Start: 09-26-2021 End: 04-11-2022 Dulaglutide (Trulicity) 3 mg /0.5 mL pen injector Discontinued 3 MG SC EVERY WEEK 6 September 25, 2021 11:00pm April 11, 2022 1:50pm Start: 09-26-2021 Dulaglutide (T rulicity) 3 mg/0.5 mL pen injector Active 3 MG SC EVERY WEEK 6 September 26, 2021 12:00am Start: 09-25-2021 End: 01-03-2022 Dulaglutide (Trulicity) 1.5 mg/0.5 mL pen injector Discontinued mg SC September 25, 2021 12:00am January 03, 2022 1:34pm Start: 09-28-2020 End: 09-11-2022 inject 1.5 mg by subcutaneous injection every week dulaglutide (TRULICITY) 1.5 mg/0.5 mL pen injector Inject 1.5 mg subcutaneously one time a week. ID#[id number] 01 12 Each 3 09/28/2020 09/11/2022 Discontinued (Dosage adjustment) Start: 08-23-2018 End: 09-25-2021 Dulaglutide (Trulicity) 0.75 pen injector Discontinued 0.75 U SC EVERY WEEK August 23, 2018 12:00am September 25, 2021 11:25am Comment on above: Inject 1.5 mg subcut aneously one time a week. ID#[id number] ezetimibe 10 mg oral tablet (5 sources) Dietary Cholesterol Absorption Inhibitor Start: 9 End: 3 take 1 tablet by mouth once daily Ezetimibe 10 MG tablet Discontinued 10 mg PO DAILY August 23, 2018 12:00am July 25, 2022 2:49pm Flash Glucose Scanning [place] (Freestyle Tyler 2 [place]) misc (5 sources) Start: 2 End: 4 Flash Glucose Scanning [place] (Freestyle Tyler 2 [place]) misc Discontinued NMA .ROUTE .MEDSUPPLY 1 September 25, 2021 12:00am November 27, 2023 2:03pm As directed Start: 09-25-2021 Flash Glucose Scanning [place] (Freestyle Tyler 2 [place]) misc Active EACH .ROUTE .MEDSUPPLY 1 September 24, 2021 11:00pm As directed Start: 09-25-2021 Flash Glucose Scanning [place] (Freestyle Tyler 2 [place]) misc Active EACH .ROUTE .MEDSUPPLY 1 September 25, 2021 12:00am As directed Flash Glucose Sensor (Freest yle Tyler 2 Sensor) kit (20 sources) Start: 05-15-2023 End: 11-27-2023 Flash Glucose Sensor (Freest yle Tyler 2 Sensor) kit Discontinued 0 .Route 2 May 15, 2023 4:56pm November 27, 2023 2:03pm Diabetes mellitus jail (current) use of insulin 1 sensor q 14 days Start: 05-15-2023 End: 11-27-2023 Flash Glucose Sensor (Freest yle Tyler 2 Sensor) kit Discontinued 0 .Route 2 May 15, 2023 4:56pm November 27, 2023 2:03pm 1 sensor q 14 days Start: 05-15-2023 Flash Glucose Sensor (Freestyle Tyler 2 Sensor) kit Active 0 .Route 2 May 15, 2023 3:56pm 1 sensor q 14 days Start: 03-01-2023 End: 05-15-2023 Flash Glucose Sensor (Freest yle Tyler 2 Sensor) kit Discontinued 0 .Route 2 March 01, 2023 1:00am May 15, 2023 4:57pm As directed Start: 03-01-2023 End: 05-15-2023 Flash Glucose Sensor (Freest yle Tyler 2 Sensor) kit Discontinued 0 .Route 2 March 01, 2023 1:00am May 15, 2023 4:57pm As directed Start: 03-01-2023 End: 05-15-2023 Flash Glucose Sensor (Freest yle Tyler 2 Sensor) kit Discontinued 0 .Route 2 March 01, 2023 12:00am May 15, 2023 3:57pm As directed Start: 02-15-2023 End: 11-27-2023 Flash Glucose Sensor (Freest yle Tyler 2 Sensor) kit Discontinued 0 NMA .ROUTE .MEDSUPPLY 6 February 15, 2023 2:25pm November 27, 2023 2:03pm Diabetes mellitus Type 2 diabetes mellitus without complications As directed Start: 02-15-2023 End: 11-27-2023 Flash Glucose Sensor (Freest yle Tyler 2 Sensor) kit Discontinued 0 NMA .ROUTE .MEDSUPPLY February 15, 2023 2:25pm November 27, 2023 2:03pm As directed Start: 02-15-2023 Flash Glucose Sensor (Freestyle Tyler 2 Sensor) kit Active 0 KIT .ROUTE .MEDSUPPLY February 15, 2023 1:25pm As directed Start: 01-29-2023 End: 02-15-2023 Flash Glucose Sensor (Freest yle Tyler 2 Sensor) kit Discontinued 0 NMA .ROUTE .MEDSUPPLY 6 January 29, 2023 2:49pm February 15, 2023 2:26pm Diabetes mellitus Type 2 diabetes mellitus without complications As directed Start: 01-29-2023 End: 02-15-2023 Flash Glucose Sensor (Freest yle Tyler 2 Sensor) kit Discontinued 0 NMA .ROUTE .MEDSUPPLY January 29, 2023 2:49pm February 15, 2023 2:26pm As directed Start: 01-29-2023 End: 02-15-2023 Flash Glucose Sensor (Freest yle Tyler 2 Sensor) kit Discontinued 0 KIT .ROUTE .MEDSUPPLY January 29, 2023 1:49pm February 15, 2023 1:26pm As directed Start: 04-11-2022 End: 01-29-2023 Flash Glucose Sensor (Freest yle Tyler 2 Sensor) kit Discontinued 0 NMA .ROUTE .MEDSUPPLY 6 April 11, 2022 3:03pm January 29, 2023 2:49pm Diabetes mellitus Type 2 diabetes mellitus without complications As directed Start: 04-11-2022 End: 01-29-2023 Flash Glucose Sensor (Freest yle Tyler 2 Sensor) kit Discontinued 0 NMA .ROUTE .MEDSUPPLY April 11, 2022 3:03pm January 29, 2023 2:49pm As directed Start: 04-11-2022 End: 01-29-2023 Flash Glucose Sensor (Freest yle Tyler 2 Sensor) kit Discontinued 0 KIT .ROUTE .MEDSUPPLY April 11, 2022 2:03pm January 29, 2023 1:49pm As directed Start: 09-25-2021 End: 04-11-2022 Flash Glucose Sensor (Freest yle Tyler 2 Sensor) kit Discontinued 0 NMA .ROUTE .MEDSUPPLY September 25, 2021 12:00am April 11, 2022 3:04pm As directed Start: 09-25-2021 End: 04-11-2022 Flash Glucose Sensor (Freest yle Tyler 2 Sensor) kit Discontinued 0 KIT .ROUTE .MEDSUPPLY September 24, 2021 11:00pm April 11, 2022 2:04pm As directed Start: 09-25-2021 Flash Glucose Sensor (Freestyle Tyler 2 Sensor) kit Active 0 KIT .ROUTE .MEDSUPPLY September 25, 2021 12:00am As directed hydrocortisone 10 mg/ml / neomycin 3.5 mg/ml / polymyxin b [id number] unt/ml otic suspension (2 sources) Aminoglycoside Antibacterial, Polymyxin-class Antibacterial, Corticosteroid Start: 11-27-2023 End: 12-07-2023 Lxtnxazh-Irwdovnur-Vd 3.5-10,000-1 mg/mL-unit/mL-% drops,suspension Discontinued 4 NMA OTIC Q8H 10 10 0 November 27, 2023 12:00am December 06, 2023 12:00am December 07, 2023 12:09am Otitis externa Unspecified otitis externa, unspecified ear left ear 3 ml insulin glargine 100 unt/ml pen injector (16 sources) Insulin Analog Start: 09-26-2021 End: 04-11-2022 Insulin Glargine (Lantus Solostar U-100 Insulin) 100 unit/mL (3 mL) insulin pen Discontinued 50 U SC DAILY 45 2 September 26, 2021 12:00am April 11, 2022 2:50pm Start: 09-25-2021 End: 04-11-2022 Insulin Glargine (Lantus Casey ostar U-100 Insulin) 100 unit/mL (3 mL) insulin pen Discontinued U SC September 25, 2021 12:00am April 11, 2022 2:50pm Start: 09-25-2021 End: 04-11-2022 Insulin Glargine (Lantus Casey ostar U-100 Insulin) 100 unit/mL (3 mL) insulin pen Discontinued UNIT SC September 24, 2021 11:00pm April 11, 2022 1:50pm Start: 10-11-2020 End: 10-16-2021 insulin glargine (LANTUS CASEY OSTAR, BASAGLAR KWIKPEN) 100 unit/mL (3 mL) Musa Scherer 0 09/25/2021 10/16/2021 Discontinued Comment on above: Inject 12 Units subc utaneously every morning. 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 Start: 01-08-2023 End: 08-21-2023 Insulin Glargine-Yfgn (Semgl ee(Insulin Glarg-Yfgn)Pen) 100 unit/mL (3 mL) insulin pen Discontinued 35 U SC DAILY January 08, 2023 2:05pm August 21, 2023 1:13pm Start: 01-08-2023 Insulin Glargi ne-Yfgn (Semglee(Insulin Glarg-Yfgn)Pen) 100 unit/mL (3 mL) insulin pen Active 35 UNIT SC DAILY January 08, 2023 1:05pm terbinafine 250 mg oral tablet (2 sources) Allylamine Antifungal Start: 08-21-2023 End: 11-13-2023 take 1 tablet by mouth once daily Terbinafine Hcl 250 mg tablet Discontinued 250 mg PO DAILY 84 84 0 August 21, 2023 12:00am November 12, 2023 12:00am November 13, 2023 12:03am Onychomycosis Tinea unguium Tirzepatide (Mounjaro) 10 mg/0.5 mL pen injector (4 sources) Start: 09-03-2022 End: 03-01-2023 Tirzepatide (Mounjaro) 10 mg/0.5 mL pen injector Discontinued 10 mg SC EVERY WEEK 6 September 03, 2022 12:00am March 01, 2023 2:45pm Start: 09-03-2022 End: 03-01-2023 Tirzepatide (Mounjaro) 10 mg /0.5 mL pen injector Discontinued 10 mg SC EVERY WEEK September 03, 2022 12:00am March 01, 2023 2:45pm Start: 09-03-2022 End: 03-01-2023 Tirzepatide (Mounjaro) 10 mg /0.5 mL pen injector Discontinued 10 MG SC EVERY WEEK September 02, 2022 11:00pm March 01, 2023 1:45pm Tirzepatide (Mounjaro) 12.5 mg/0.5 mL pen injector (4 sources) Start: 03-01-2023 End: 03-04-2023 Tirzepatide (Mounjaro) 12.5 mg/0.5 mL pen injector Discontinued 12.5 mg SC EVERY WEEK 6 March 01, 2023 1:00am March 04, 2023 2:43pm Start: 03-01-2023 End: 03-04-2023 Tirzepatide (Mounjaro) 12.5 mg/0.5 mL pen injector Discontinued 12.5 mg SC EVERY WEEK March 01, 2023 1:00am March 04, 2023 2:43pm Start: 03-01-2023 End: 03-04-2023 Tirzepatide (Mounjaro) 12.5 mg/0.5 mL pen injector Discontinued 12.5 MG SC EVERY WEEK March 01, 2023 12:00am March 04, 2023 1:43pm Tirzepatide (Mounjaro) 2.5 mg/0.5 mL pen injector (4 sources) Start: 01-03-2022 End: 04-11-2022 Tirzepatide (Mounjaro) 2.5 mg/0.5 mL pen injector Discontinued 2.5 mg SC EVERY WEEK January 03, 2022 12:00am April 11, 2022 3:01pm Diabetes mellitus Obesity Type 2 diabetes mellitus without complications Obesity, unspecified Start: 01-03-2022 End: 04-11-2022 Tirzepatide (Mounjaro) 2.5 m g/0.5 mL pen injector Discontinued 2.5 mg SC EVERY WEEK 2 January 03, 2022 12:00am April 11, 2022 3:01pm Start: 01-03-2022 End: 04-11-2022 Tirzepatide (Mounjaro) 2.5 m g/0.5 mL pen injector Discontinued 2.5 MG SC EVERY WEEK 2 January 02, 2022 11:00pm April 11, 2022 2:01pm Tirzepatide (Mounjaro) 5 mg/ 0.5 mL pen injector (4 sources) Start: 04-11-2022 End: 07-25-2022 Tirzepatide (Mounjaro) 5 mg/ 0.5 mL pen injector Discontinued 5 mg SC EVERY WEEK 2 April 11, 2022 1:00am July 25, 2022 3:18pm Start: 04-11-2022 End: 07-25-2022 Tirzepatide (Mounjaro) 5 mg/ 0.5 mL pen injector Discontinued 5 mg SC EVERY WEEK 2 April 11, 2022 1:00am July 25, 2022 3:18pm Start: 04-11-2022 End: 07-25-2022 Tirzepatide (Mounjaro) 5 mg/ 0.5 mL pen injector Discontinued 5 MG SC EVERY WEEK 2 April 11, 2022 12:00am July 25, 2022 2:18pm Tirzepatide (Mounjaro) 7.5 mg/0.5 mL pen injector (4 sources) Start: 07-25-2022 End: 09-03-2022 Tirzepatide (Mounjaro) 7.5 mg/0.5 mL pen injector Discontinued 7.5 mg SC EVERY WEEK 2 July 25, 2022 12:00am September 03, 2022 11:43am Diabetes mellitus Type 2 diabetes mellitus without complications Start: 07-25-2022 End: 09-03-2022 Tirzepatide (Mounjaro) 7.5 m g/0.5 mL pen injector Discontinued 7.5 mg SC EVERY WEEK 2 July 25, 2022 12:00am September 03, 2022 11:43am Start: 07-25-2022 End: 09-03-2022 Tirzepatide (Mounjaro) 7.5 m g/0.5 mL pen injector Discontinued 7.5 MG SC EVERY WEEK 2 July 24, 2022 11:00pm September 03, 2022 10:43am Problems Active Problems Problem Classification Problem Date Documented Da te Episodic/Chronic Administrative/social admission (2 sources) Persons encountering health services in other specified circumstances; Translations: [Other reasons for seeking consultation] 02-20-2023 Episodic Anxiety disorders (20 sources) Anxiety; Translations: [Anxiety disorder, unspecified] 04-20-2011 Chronic Diabetes mellitus with complications (20 sources) Type II diabetes mellitus uncontrolled; Translations: [Type 2 diabetes mellitus with hyperglycemia] Onset: 11-25-2024 Resolved: 09-11-2022 07-03-2019 Chronic Diabetes mellitus without complication (20 sources) Diabetes mellitus; Translations: [Type 2 diabetes mellitus without complications] Onset: 11-07-2012 Chronic Disorders of lipid metabolism (20 sources) Hyperlipidemia; Translations: [Hyperlipidemia, unspecified] Onset: 05-27-2024 04-20-2011 Chronic Essential hypertension (20 sources) Benign hypertension; Translations: [Essential (primary) hypertension] Onset: 11-25-2024 01-05-2015 Chronic Immunizations and screening for infectious disease (9 sources) Patient encounter status; Translations: [Encounter for immunization] Episodic Mycoses (1 source) Onychomycosis; Translations: [Tinea unguium] 02-19-2024 Episodic Nutritional deficiencies (20 sources) Vitamin D deficiency; Translations: [Vitamin D deficiency, unspecified] 04-20-2011 Chronic Other aftercare (1 source) jail (current) use of insulin; Translations: [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] Onset: 11-25-2024 Episodic Other ear and sense organ disorders (2 sources) Otitis externa; Translations: [Unspecified otitis externa, unspecified ear] 11-27-2023 Chronic Other ear and sense organ disorders (1 source) Unspecified otitis externa, unspecified ear; Translations: [Unspecified otitis externa, unspecified ear] Onset: 11-25-2024 Chronic Other inflammatory condition of skin (2 sources) Other psoriasis; 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] 02-20-2023 Chronic Other inflammatory condition of skin (1 source) Psoriasis annularis; 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] 02-19-2024 Chronic Other nervous system disorders (2 sources) Carpal tunnel syndrome, bilateral upper limbs; Translations: [Carpal tunnel syndrome] 02-20-2023 Chronic Other nervous system disorders (1 source) Carpal tunnel syndrome; Translations: [Carpal tunnel syndrome, bilateral upper limbs] 02-19-2024 Chronic Other nutritional; endocrine; and metabolic disorders (20 sources) Obese class I; Translations: [Obesity, unspecified] Onset: 01-22-2018 01-22-2018 Chronic Other nutritional; endocrine; and metabolic disorders (7 sources) Obesity; Translations: [Other obesity due to excess calories] Chronic Other nutritional; endocrine; and metabolic disorders (3 sources) Obesity, unspecified; Translations: [Obesity, unspecified] Chronic Other nutritional; endocrine; and metabolic disorders (4 sources) Hypercalcemia; Translations: [Hypercalcemia] 05-29-2023 Chronic Other nutritional; endocrine; and metabolic disorders (1 source) Other obesity due to excess calories; Translations: [Other obesity due to excess calories] Onset: 05-27-2024 Chronic Other nutritional; endocrine; and metabolic disorders (1 source) Body mass index (BMI) 33.0-33.9, adult; Translations: [Body mass index [BMI] 33.0-33.9, adult] Onset: 05-27-2024 Chronic Other upper respiratory disease (2 sources) Other seasonal allergic rhinitis; Translations: [Allergic rhinitis, cause unspecified] 02-20-2023 Chronic Other upper respiratory disease (1 source) Seasonal allergy; Translations: [Other seasonal allergic rhinitis] 02-19-2024 Chronic Residual codes; unclassified (20 sources) Obstructive sleep apnea syndrome; Translations: [Obstructive sleep apnea (adult) (pediatric)] 04-20-2011 Chronic Residual codes; unclassified (6 sources) Sleep apnea; Translations: [Sleep apnea, unspecified] 02-20-2023 Chronic Residual codes; unclassified (2 sources) Sleep apnea, unspecified; Translations: [Unspecified sleep apnea] 02-20-2023 Chronic Past or Other Problems Problem Classification Problem Date Documented Da te Episodic/Chronic Other screening for suspected conditions (not mental disorders or infectious disease) (2 sources) Other abnormal and inconclusive findings on diagnostic imaging of breast; Translations: [Encounter for screening mammogram for malignant neoplasm of breast] Onset: 05-28-2024 Episodic Results Test Name Value Interpretation Reference Range Facility Endocrinology Visit Reporton 11-25-2024 Endocrinology Visit Report [facility] [address] [place] [address] OFFICE VISIT Date of Service: 11/25/24 MR#: [id number] Acct: [id number] Name: CHASITY PATRICIA Rep #: [id number] : 1955 Provider: ROSALIA woody Age/Sex: 68/F Location[place] [facility] [place]: Signed Intake Vital Signs 05/27/24 13:39 11/25/24 13:35 Height 5 ft 5 in 5 ft 5 in Weight: 199 lb 199 lb BMI 33.1 33.1 BP 145/85 H 150/83 H Blood Pressure Location Lt brachial Lt brachial Position Sitting Sitting Pulse 79 67 Pulse Source Monitor Monitor Pulse Oximetry (%) 99 98 Oxygen Delivery Method room air room air Intake Visit Reasons: 6 M FU Chief Complaint: f/u diabetes Manager Compensation Required: No Accompanied by: Self Is patient in pain?: Yes (Sinus Pressure) Pain scale (1-10): 4 Allergies Penicillins Adverse Reaction (Verified 11/25/24 13:35) Rash Sulfa (Sulfonamide Antibiotics) Adverse Reaction (Verified 11/25/24 13:35) Rash Medications ???Medication ???Instructions ???Recorded ???Confirmed ???Type cholecalciferol (vitamin D3) 125 125 mcg PO DAILY 09/25/21 11/25/24 History mcg (5,000 unit) capsule ferrous sulfate 325 mg (65 mg 325 mg PO DAILY 09/25/21 11/25/24 History iron) tablet (Feosol) krill oil 500 mg capsule 500 mg PO DAILY 12/26/22 11/25/24 History BD Ultra-Fine Jaz Pen Needle 32 #100 ea 05/06/23 11/25/24 Rx gauge x 5/32 (pen needle, diabetic) blood-glucose,receiv er,cont #1 ea 11/27/23 11/25/24 Rx (FreeStyle Tyler 3 [place]) insulin glargine-yfgn 100 unit/mL 20 unit (0.2 mL) subcut DAILY #18 05/05/24 11/25/24 Rx (3 mL) subcutaneous pen (Semglee mL (insulin glargine-yfgn) Pen) blood-glucose sensor (FreeStyle #1 ea 05/27/24 11/25/24 Rx Tyler 3 Plus Sensor device) citalopram 20 mg tablet 20 mg PO DAILY #90 TABLETS 5 11/25/24 Rx pen needle, diabetic 32 gauge x #100 ea 07/27/24 11/25/24 Rx 5/32 (BD Ultra-Fine Jaz Pen Needle) metoprolol succinate 50 mg 50 mg PO DAILY #90 TABLETS 5 11/25/24 Rx tablet,extended release 24 hr blood-glucose sensor (FreeStyle #6 KITS 11/11/24 11/25/24 Rx Tyler 3 Plus Sensor device) losartan 100 mg tablet 100 mg PO DAILY #90 tabs 11/12/24 11/25/24 Rx tirzepatide 15 mg/0.5 mL 15 mg (0.5 mL) subcut QWEEK #6 mL 11/12/24 11/25/24 Rx subcutaneous pen injector (Mounjaro) fenofibrate nanocrystallized 145 145 mg PO DAILY #90 tabs 11/18/24 11/25/24 Rx mg tablet metformin 500 mg tablet 1,000 mg (2 x 500 mg) PO BID #360 11/18/24 11/25/24 Rx TABLETS rosuvastatin 5 mg tablet 5 mg PO Q OTHER DAY 11/25/24 Hist ory Have you fallen in the past year?: No PFSH Medical History Psoriasis Vitamin D deficiency Hyperlipemia Cataract Arthritis Allergies Obesity Anxiety Sleep apnea Hypertension Diabetes Surgical History H/O tooth extraction H/O cataract removal with insertion of prosthetic lens Tubal ligation status History of bladder surgery S/P correction of deviated nasal septum Hx of tonsillectomy Family History Father Alcoholism Cancer esophageal Alcoholic cirrhosis Brother Anxiety Grandmother Diabetes Hypertension Mother Diabetes Hypertension Alzheimer's dementia Brother Cancer esophageal Social History household members: spouse and children current occupational status: retired 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 A1C today is 6.5%, improved from 05/27/24 at 6.6%. Weight is stable. Currently taking Semglee 14 u once daily, Mounjaro 15 mg qweek, and metformin 1 gm BID with food. Tylerjimbo rivera downloaded and reviewed- she is having occasional post meal elevations. Denies any significant episode of hypoglycemia that has required assistance from others. BP today is stable. Currently taking losartan 100 mg once daily. She is taking a statin qod. Labs are up to date. Denies any acute concerns. ROS Const Constitutional: Positive for headache(s); No fatigue, weakness, weight change or change in appetite Eyes Eyes: No change in vision ENT ENT: Positive for nasal congestion, n (more content not included)... Normal [facility] Microalb:Creat Ratio,Random URon 10-26-2024 MALB:CREAT 21.3 mg/g CRE Normal <30 mg/g CRE [facility] Comment on above: Result Comment: AMENDED REPORT 10/26/242002 MALB:CREAT previously reported as: 213.0 mg/g CRE Performed By: #### L 502.0250 #### [facility] [address] [place], [place], [id number] Absolute neutrophil countOrd ered By: Hector Hernandez on 05-27-2024 Neutrophils (Bld) [#/Vol] 2.9 10*3/uL 2.0-7.7 [facility] Albumin DL <= 20 mg/L (U) [M ass/Vol]Ordered By: Sylwia Gomez on 05-27-2024 Urine Random Microalbumin 21.3 mg/L NO RANGE EST. [facility] BUN/creatinine ratioOrdered By: Sylwia Gomez on 05-27-2024 Urea nitrogen/Creatinine [Mass ratio] 24.8 mg/mg High 10-20 [facility] Basophil percentageOrdered B y: Hector Hernandez on 05-27-2024 Basophils/100 WBC (Bld) 0.4 % 0-1 [facility] Bilirubin, totalOrdered By: Sylwia Gomez on 05-27-2024 Bilirubin [Mass/Vol] 0.30 mg/dL 0.00-1.30 [facility] CBC W/Diff, Automatedon 05-03 Absolute Lymph 1.56 X10 3/uL Normal 0.83-4.51 [facility] Comment on above: Performed By: #### L 100.0100 #### [facility] [address] [place], [address] Absolute Neut 2.9 X10 3/uL Normal 2.0-7.7 [facility] Comment on above: Performed By: #### L 100.0100 #### [facility] [address] [place], [address] Basophils/100 WBC (Bld) 0.4 % Normal 0-1 [facility] Comment on above: Performed By: #### L 100.0100 #### [facility] [address] [place], [address] Eosinophils/100 WBC (Bld) 0.8 % Normal 0-5 [facility] Comment on above: Performed By: #### L 100.0100 #### [facility] [address] [place], [address] Erythrocyte distribution width (RBC) [Ratio] 14.1 % Normal 11.6-14.6 [facility] Comment on above: Performed By: #### L 100.0100 #### [facility] [address] [place], [address] Hematocrit (Bld) [Volume fraction] 35.7 % Low 37-47 [facility] Comment on above: Performed By: #### L 100.0100 #### [facility] [address] [place], [address] Hemoglobin (Bld) [Mass/Vol] 11.4 g/dL Low 12.0-15.0 [facility] Comment on above: Performed By: #### L 100.0100 #### [facility] [address] [place], [address] IG% 0.200 Normal 0.0-0.9 [facility] Comment on above: Result Comment: IG% - Immature Granulocytes (promyelocytes, myelocytes and metamyelocytes) > 1% indicates that a LEFT SHIFT is Present. Performed By: #### L 100.0100 #### [facility] [address] [place], [address] Lymphocytes/100 WBC (Bld) 31.7 % Normal 19-41 [facility] Comment on above: Performed By: #### L 100.0100 #### [facility] [address] [place], [address] MCH (RBC) [Entitic mass] 28.4 pg Normal 27.0-32.0 [facility] Comment on above: Performed By: #### L 100.0100 #### [facility] [address] [place], [address] MCHC (RBC) [Mass/Vol] 31.9 g/dL Low 32-36 [facility] Comment on above: Performed By: #### L 100.0100 #### [facility] [address] [place], [address] MCV (RBC) [Entitic vol] 89.0 fL Normal 81-99 [facility] Comment on above: Performed By: #### L 100.0100 #### [facility] [address] [place], [address] Monocytes/100 WBC (Bld) 7.3 % Normal 0-10 [facility] Comment on above: Performed By: #### L 100.0100 #### [facility] [address] [place], [address] Neutrophils/100 WBC (Bld) 59.6 % Normal 47-70 [facility] Comment on above: Performed By: #### L 100.0100 #### [facility] [address] [place], [address] Nucleated RBC (Bld) [#/Vol] 0 10*3/uL Normal 0-5 [facility] Comment on above: Performed By: #### L 100.0100 #### [facility] [address] [place], [address] Platelet mean volume (Bld) [Entitic vol] 10.2 fL Normal 6.2-12.0 [facility] Comment on above: Performed By: #### L 100.0100 #### [facility] [address] [place], [address] Platelets (Bld) [#/Vol] 305 10*3/uL Normal 150-450 [facility] Comment on above: Performed By: #### L 100.0100 #### [facility] [address] [place], [address] RBC (Bld) [#/Vol] 4.01 10*6/uL Low 4.2-5.4 [facility] Comment on above: Performed By: #### L 100.0100 #### [facility] [address] [place], [address] RDW SD 45.8 fl High 35.1-43.9 [facility] Comment on above: Performed By: #### L 100.0100 #### [facility] [address] [place], [address] WBC (Bld) [#/Vol] 4.9 10*3/uL Normal 4.4-11.0 [facility] Comment on above: Performed By: #### L 100.0100 #### [facility] [address] [place], [address] Calculated very low density lipoprotein (VLDL) cholesterol measurementOrdered By: Sylwia Gomez on 05-27-2024 VLDL Cholesterol 16 mg/dL 5-40 [facility] Carbon dioxide measurementOr dered By: Sylwia Gomez on 05-27-2024 CO2 [Moles/Vol] 23.4 mmol/L 22.0-29.0 [facility] Chloride measurementOrdered By: Sylwia Gomez on 05-27-2024 Chloride [Moles/Vol] 105 mmol/L 96-108 [facility] Comprehensive Metabolic Prof ilon 05-27-2024 Albumin [Mass/Vol] 4.8 g/dL Normal 3.4-4.8 [facility] Comment on above: Performed By: #### L 501.9520, L500.4100, L500.4050 #### [facility] [address] [place], [address] Albumin/Globulin [Mass ratio] 2.0 {ratio} Normal 0.9-2.4 [facility] Comment on above: Performed By: #### L 501.9520, L500.4100, L500.4050 #### [facility] [address] [place], [address] ALK PHOS 31 U/L Low 35-104 [facility] Comment on above: Performed By: #### L 501.9520, L500.4100, L500.4050 #### [facility] [address] [place], [address] ALT [Catalytic activity/Vol] 15 U/L Normal <=34 [facility] Comment on above: Performed By: #### L 501.9520, L500.4100, L500.4050 #### [facility] [address] [place], [address] Anion gap [Moles/Vol] 11 mmol/L Normal 5-15 [facility] Comment on above: Performed By: #### L 501.9520, L500.4100, L500.4050 #### [facility] [address] [place], [address] AST [Catalytic activity/Vol] 18 U/L Normal <=31 [facility] Comment on above: Performed By: #### L 501.9520, L500.4100, L500.4050 #### [facility] [address] [place], [address] Bilirubin [Mass/Vol] 0.30 mg/dL Normal 0.00-1.30 [facility] Comment on above: Performed By: #### L 501.9520, L500.4100, L500.4050 #### [facility] [address] [place], [address] BUN/CRE 24.8 RATIO High 10-20 [facility] Comment on above: Performed By: #### L 501.9520, L500.4100, L500.4050 #### [facility] [address] [place], [address] Calcium [Mass/Vol] 9.4 mg/dL Normal 7.6-11.0 [facility] Comment on above: Performed By: #### L 501.9520, L500.4100, L500.4050 #### [facility] [address] [place], [address] Chloride [Moles/Vol] 105 mmol/L Normal 96-108 [facility] Comment on above: Performed By: #### L 501.9520, L500.4100, L500.4050 #### [facility] [address] [place], [address] CO2 [Moles/Vol] 23.4 mmol/L Normal 22.0-29.0 [facility] Comment on above: Performed By: #### L 501.9520, L500.4100, L500.4050 #### [facility] [address] [place], [address] Creatinine [Mass/Vol] 0.8 mg/dL Normal 0.6-1.0 [facility] Comment on above: Performed By: #### L 501.9520, L500.4100, L500.4050 #### [facility] [address] [place], [address] GFR/1.73 sq M.predicted among non-blacks MDRD (S/P/Bld) [Vol rate/Area] 83 mL/min/{1.73_m2} Normal >60 [facility] Comment on above: Result Comment: mL/m in/1.73m2 CKD-EPI Creatinine Equation (2020) Performed By: #### L 501.9520, L500.4100, L500.4050 #### [facility] [address] [place], [address] Globulin (S) [Mass/Vol] 2.3 g/dL Normal 2.2-4.2 [facility] Comment on above: Performed By: #### L 501.9520, L500.4100, L500.4050 #### [facility] [address] [place], [address] Glucose [Mass/Vol] 100 mg/dL High 70-99 [facility] Comment on above: Performed By: #### L 501.9520, L500.4100, L500.4050 #### [facility] [address] [place], [address] Potassium [Moles/Vol] 4.4 mmol/L Normal 3.3-5.1 [facility] Comment on above: Performed By: #### L 501.9520, L500.4100, L500.4050 #### [facility] [address] [place], [address] Sodium [Moles/Vol] 139 mmol/L Normal 133-145 [facility] Comment on above: Performed By: #### L 501.9520, L500.4100, L500.4050 #### [facility] [address] [place], [address] T PROT 7.1 g/dL Normal 5.9-8.4 [facility] Comment on above: Performed By: #### L 501.9520, L500.4100, L500.4050 #### [facility] [address] [place], [address] Urea nitrogen [Mass/Vol] 20 mg/dL High 4-19 [facility] Comment on above: Performed By: #### L 501.7374, L500.6539, L500.9018 #### [facility] [address] [place], [address] Creatinine Unsp time (U) [Ma ss/Vol]Ordered By: Sylwia Gomez on 05-27-2024 Creatinine (U) [Mass/Vol] 100.00 mg/dL NO RANGE EST. [facility] Endocrinology Visit Reporton 05-27-2024 Endocrinology Visit Report [facility] [address] [place] [address] OFFICE VISIT Date of Service: 05/27/24 MR#: [id number] Acct: [id number] Name: CHASITY PATRICIA Rep #: [id number] : 1955 Provider: ROSALIA woody Age/Sex: 68/F Location[place] [facility] Status: Signed Intake Vital Signs 11/27/23 13:45 02/19/24 12:43 05/27/24 13:39 Height 5 ft 5 in 5 ft 5 in 5 ft 5 in Weight: 198 lb 199 lb BMI 32.9 33.1 BP 120/76 145/85 H Blood Pressure Location Lt brachial Lt brachial Position Sitting Sitting Respiration 16 Pulse 70 79 Pulse Source Monitor Monitor Temp 97.2 F L Temp Source Temporal Pulse Oximetry (%) 99 99 Oxygen Delivery Method room air room air Intake Visit Reasons: 6 M FU Chief Complaint: f/u Manager Compensation Required: No Accompanied by: Self Is patient in pain?: No Allergies Penicillins Adverse Reaction (Verified 05/27/24 13:39) Rash Sulfa (Sulfonamide Antibiotics) Adverse Reaction (Verified 05/27/24 13:39) Rash Medications ???Medication ???Instructions ???Recorded ???Confirmed ???Type cholecalciferol (vitamin D3) 125 125 mcg PO DAILY 09/25/21 05/27/24 History mcg (5,000 unit) capsule ferrous sulfate 325 mg (65 mg 325 mg PO DAILY 09/25/21 05/27/24 History iron) tablet (Feosol) pen needle, diabetic 32 gauge x #100 ea 04/11/22 05/27/24 Rx 5/32 (BD Ultra-Fine Jaz Pen Needle) krill oil 500 mg capsule 500 mg PO DAILY 12/26/22 05/27/24 History BD Ultra-Fine Jaz Pen Needle 32 #100 ea 05/06/23 05/27/24 Rx gauge x 5/32 (pen needle, diabetic) metformin 500 mg tablet 1,000 mg (2 x 500 mg) PO BID #360 11/08/23 05/27/24 Rx tabs blood-glucose meter,continuous #1 ea 11/27/23 05/27/24 Rx (FreeStyle Tyler 3 Tijeras) losartan 100 mg tablet 100 mg PO DAILY #90 tabs 11/27/23 05/27/24 Rx fenofibrate nanocrystallized 145 145 mg PO DAILY #90 tabs 01/15/24 05/27/24 Rx mg tablet citalopram 20 mg tablet 20 mg PO DAILY #90 TABLETS 4 05/27/24 Rx metoprolol succinate 50 mg 50 mg PO DAILY #90 TABLETS 4 05/27/24 Rx tablet,extended release 24 hr rosuvastatin 5 mg tablet 5 mg PO DAILY #90 TABLETS 03/02/24 05/27/24 Rx blood-glucose sensor (FreeStyle #6 ea 05/05/24 05/27/24 Rx Tyler 3 Sensor device) insulin glargine-yfgn 100 unit/mL 20 unit (0.2 mL) subcut DAILY #18 05/05/24 05/27/24 Rx (3 mL) subcutaneous pen (Semglee mL (insulin glargine-yfgn) Pen) tirzepatide 15 mg/0.5 mL 15 mg (0.5 mL) subcut QWEEK #6 mL 05/05/24 05/27/24 Rx subcutaneous pen injector (Mounjaro) Have you fallen in the past year?: No PFSH Medical History (Updated 05/27/24 @ 14:22 by ROSALIA Hidalgo) Psoriasis Vitamin D deficiency Hyperlipemia Cataract Arthritis Allergies Obesity Anxiety Sleep apnea Hypertension Diabetes Surgical History H/O tooth extraction H/O cataract removal with insertion of prosthetic lens Tubal ligation status History of bladder surgery S/P correction of deviated nasal septum Hx of tonsillectomy Family History Father Alcoholism Cancer esophageal Alcoholic cirrhosis Brother Anxiety Grandmother Diabetes Hypertension Mother Diabetes Hypertension Alzheimer's dementia Brother Cancer esophageal Social History household members: spouse and children 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 A1C today is 6.6%, consistent with 11/27/23. She has lost an additional 3 lbs since that time. Currently taking Mounjaro 15 mg qweek- tolerating well, metformin 1 gm BID with food, and Semglee 16 u once daily. CGM downloaded and reviewed- she is having occasional lows, and occasional post meal elevations. She denies any significant episode of hypoglycemia that has required assistance from others. BP stable. Currently taking losartan 100 mg once daily and metoprolol succ 50 mg once daily. She takes a daily statin. She had recent cataract surgery, she is recovering well. She is due for labs. Denies any acute concerns. ROS Const Constitutional: Positive for weight change (continued weight loss); No fatigue or weakness Car (more content not included)... Normal [facility] Eosinophil percentageOrdered By: Hector Hernandez on 05-27-2024 Eosinophils/100 WBC (Bld) 0.8 % 0-5 [facility] Erythrocyte distribution wid th ratioOrdered By: Hector Hernandez on 05-27-2024 Erythrocyte distribution width (RBC) [Ratio] 14.1 % 11.6-14.6 [facility] Erythrocyte distribution wid th standard deviationOrdered By: Hector Hernandez on 05-27-2024 Erythrocyte distribution width (RBC) [Entitic vol] 45.8 fL High 35.1-43.9 [facility] GFR/1.73 sq M.predicted karla g non-blacks MDRD (S/P/Bld) [Vol rate/Area]Ordered By: Sylwia Gomez on 05-27-2024 Estimated GFR (MDRD) Non-Af Amer 83 >60 [facility] Comment on above: mL/min/1.73m2 CKD-EP I Creatinine Equation (2020) Hematocrit Auto (Bld) [Volum e fraction]Ordered By: Hector Hernandez on 05-27-2024 Hematocrit (Bld) [Volume fraction] 35.7 % Low 37-47 [facility] Hemoglobin measurementOrdere d By: Hector Hernandez on 05-27-2024 Hemoglobin (Bld) [Mass/Vol] 11.4 g/dL Low 12.0-15.0 [facility] Immature granulocytes/100 WB C Auto (Bld)Ordered By: Hector Hernandez on 05-27-2024 Immature granulocytes/100 WBC (Bld) 0.200 % 0.0-0.9 [facility] Comment on above: IG% - Immature Granu locytes (promyelocytes, myelocytes and metamyelocytes) > 1% indicates that a LEFT SHIFT is Present. LDL calc ser/plasOrdered By: Sylwia Gomez on 05-27-2024 LDL Cholesterol, Calculated 62 mg/dL [facility] Comment on above: Ctogvaytxj=102-170 m g/dL & Higher Eebj=457 mg/dL or greater Laboratory - Chemistry and C hemistry - challengeOrdered By: Sylwia Gomez on 05-27-2024 AST [Catalytic activity/Vol] 18 U/L <32 [facility] - Hematology and Cell countsOrdered By: Sylwia Gomez on 05-27-2024 HbA1c (Bld) [Mass fraction] 6.6 % High 4.2-6.3 [facility] Lipid Profileon 05-27-2024 CHOL:HDL 2.43 Normal [facility] Comment on above: Performed By: #### L 501.7374, L500.4100, L500.4050 #### [facility] [address] [place], [address] Cholesterol [Mass/Vol] 131 mg/dL Normal <=200 [facility] Comment on above: Result Comment: Chol esterol level, Desirable <200 mg/dL Borderline high cholesterol 200-239 mg/dL High cholesterol >=240 mg/dL Recommendations of the NCEP Adult Treatment Panel for the following risk-cutoff thresholds for the [place] population. Performed By: #### L 501.9520, L500.4100, L500.4050 #### [facility] [address] [place], [address] Cholesterol in HDL [Mass/Vol] 54 mg/dL Normal [facility] Comment on above: Result Comment: Elsa onal Cholesterol Education Program (NCEP) guidelines: <40 mg/dL: Low HDL-cholesterol (major risk factor for CHD) >= 60 mg/dL: High HDL-cholesterol (negative risk factor for CHD) HDL-cholesterol is affected by a number of factors, e.g. smoking, exercise, hormones, sex and age. Performed By: #### L 501.9520, L500.4100, L500.4050 #### [facility] [address] [place], [address] Cholesterol in LDL [Mass/Vol] 62 mg/dL Normal [facility] Comment on above: Result Comment: Bord lldfjf=044-388 mg/dL Higher Cvlf=969 mg/dL or greater Performed By: #### L 501.9520, L500.4100, L500.4050 #### [facility] [address] [place], [address] Cholesterol in VLDL [Mass/Vol] 16 mg/dL Normal 5-40 [facility] Comment on above: Performed By: #### L 501.9520, L500.4100, L500.4050 #### [facility] [address] [place], [address] Triglyceride [Mass/Vol] 78 mg/dL Normal [facility] Comment on above: Result Comment: The drugs N-Acetylcysteine and Metamizole may falsely depress this assay. Normal range: <150 mg/dL Borderline High: 150-199 mg/dL High: 200-499 mg/dL Very High: >500 mg/dL Performed By: #### L 501.9584, L500.4100, L500.4050 #### [facility] [address] [place], [address] Lymphocytes Auto (Unsp spec) [#/Vol]Ordered By: Hector Hernandez on 05-27-2024 Lymphocytes (Bld) [#/Vol] 1.56 10*3/uL 0.83-4.51 [facility] Lymphocytes/100 WBC Auto (Un sp spec)Ordered By: Hector Hernandez on 05-27-2024 Lymphocytes/100 WBC (Bld) 31.7 % 19-41 [facility] MCV (mean corpuscular volume ) determinationOrdered By: Hector Hernandez on 05-27-2024 MCV (RBC) [Entitic vol] 89.0 fL 81-99 [facility] Mean corpuscular hemoglobin (MCH) determinationOrdered By: Hector Hernandez on 05-27-2024 MCH (RBC) [Entitic mass] 28.4 pg 27.0-32.0 [facility] Mean corpuscular hemoglobin concentration (MCHC) determinationOrdered By: Hector Hernandez on 05-27-2024 MCHC (RBC) [Mass/Vol] 31.9 g/dL Low 32-36 [facility] Mean platelet volume determi nationOrdered By: Hector Hernandez on 05-27-2024 Platelet mean volume (Bld) [Entitic vol] 10.2 fL 6.2-12.0 [facility] Microalbumin/creat ratio urO rdered By: Sylwia Gomez on 05-27-2024 Urine Microalbumin/Creatinine Ratio 213.0 mg/g CRE [facility] Monocyte percentageOrdered B y: Hector Hernandez on 05-27-2024 Monocytes/100 WBC (Bld) 7.3 % 0-10 [facility] Neutrophil percentageOrdered By: Hector Hernandez on 05-27-2024 Neutrophils/100 WBC (Bld) 59.6 % 47-70 [facility] Nucleated red blood cell per centageOrdered By: Hector Hernandez on 05-27-2024 Nucleated RBC/100 WBC (Bld) [Ratio] 0 % 0-5 [facility] Platelet countOrdered By: Dann Hernandez on 05-27-2024 Platelets (Bld) [#/Vol] 305 10*3/uL 150-450 [facility] RBC Auto (Bld) [#/Vol]Ordere d By: Hector Hernandez on 05-27-2024 RBC (Bld) [#/Vol] 4.01 10*6/uL Low 4.2-5.4 [facility] Screening total cholesterol/ high density lipoprotein (HDL) cholesterol ratioOrdered By: Sylwia Gomez on 05-27-2024 Cholesterol.total/Choles terol in HDL [Mass ratio] 2.43 {ratio} [facility] Serum creatinine measurement (mass/volume)Ordered By: Sylwia Gomez on 05-27-2024 Creatinine [Mass/Vol] 0.8 mg/dL 0.70-1.20 [facility] Serum globulin measurementOr dered By: Sylwia Gomez on 05-27-2024 Globulin (S) [Mass/Vol] 2.3 g/dL 2.2-4.2 [facility] Serum glucose measurement (m ass/volume)Ordered By: Sylwia Gomez on 05-27-2024 Glucose [Mass/Vol] 100 mg/dL High 70-99 [facility] Serum or plasma alanine schuler otransferase (ALT) measurementOrdered By: Sylwia Gomez on 05-27-2024 ALT [Catalytic activity/Vol] 15 U/L <35 [facility] Serum or plasma albumin stephon urement (mass/volume)Ordered By: Sylwia Gomez on 05-27-2024 Albumin [Mass/Vol] 4.8 g/dL 3.4-4.8 [facility] Serum or plasma albumin/glob ulin mass ratioOrdered By: Sylwia Gomez on 05-27-2024 Albumin/Globulin [Mass ratio] 2.0 {ratio} 0.9-2.4 [facility] Serum or plasma alkaline malgorzata sphatase measurementOrdered By: Sylwia Gomez on 05-27-2024 ALP [Catalytic activity/Vol] 31 U/L Low 35-104 [facility] Serum or plasma anion gap de termination (moles/volume)Ordered By: Sylwia Gomez on 05-27-2024 Anion gap [Moles/Vol] 11 mmol/L 5-15 [facility] Serum or plasma calcium stephon urement (mass/volume)Ordered By: Sylwia Gomez on 05-27-2024 Calcium [Mass/Vol] 9.4 mg/dL 7.6-11.0 [facility] Serum or plasma cholesterol in HDL measurement (mass/volume)Ordered By: Sylwia Gomez on 05-27-2024 Cholesterol in HDL [Mass/Vol] 54 mg/dL >40 [facility] Comment on above: National Cholesterol Education Program (NCEP) guidelines:<40 mg/dL: Low HDL-cholesterol (major risk factor for CHD)>= 60 mg/dL: High HDL-cholesterol (negative risk factor for CHD)HDL-cholesterol is affected by a number of factors, e.g. smoking, exercise, hormones, sex and age. Serum or plasma cholesterol measurement (mass/volume)Ordered By: Sylwia Gomez on 05-27-2024 Cholesterol [Mass/Vol] 131 mg/dL <201 [facility] Comment on above: Cholesterol level, D esirable <200 mg/dLBorderline high cholesterol 200-239 mg/dLHigh cholesterol >=240 mg/dLRecommendations of the NCEP Adult Treatment Panel for the following risk-cutoff thresholds for the [place] population. Serum or plasma potassium me asurementOrdered By: Sylwia Gomez on 05-27-2024 Potassium [Moles/Vol] 4.4 mmol/L 3.3-5.1 [facility] Serum or plasma sodium measu rement (moles/volume)Ordered By: Sylwia Gomez on 05-27-2024 Sodium [Moles/Vol] 139 mmol/L 133-145 [facility] Serum or plasma urea nitroge n measurement (mass/volume)Ordered By: Sylwia Gomez on 05-27-2024 Urea nitrogen [Mass/Vol] 20 mg/dL High 4-19 [facility] TSH DL <= 0.005 mIU/L QnOrde red By: Sylwia Gomez on 05-27-2024 Thyroid Stimulating Hormone (TSH) 0.392 uIU/mL 0.300-4.200 [facility] Thyroid Stim Hormone (TSH)on 05-27-2024 TSH 0.392 uIU/mL Normal 0.300-4.200 [facility] Comment on above: Performed By: #### L 501.9520, L500.4100, L500.4050 ####[facility] [address] [place], [place], [id number] Total proteinOrdered By: Lilibeth Gomez on 05-27-2024 Protein [Mass/Vol] 7.1 g/dL 5.9-8.4 [facility] Triglycerides measurementOrd ered By: Sylwia Gomez on 05-27-2024 Triglyceride [Mass/Vol] 78 mg/dL <199 [facility] Comment on above: The drugs N-Acetylcy steine and Metamizole may falsely depress this assay. Normal range: <150 mg/dLBorderline High: 150-199 mg/dLHigh: 200-499 mg/dLVery High: >500 mg/dL White blood cell (WBC) count Ordered By: Hector Hernandez on 05-27-2024 WBC (Bld) [#/Vol] 4.9 10*3/uL 4.4-11.0 [facility] Breast Limited Unilateralon 05-21-2024 Breast Limited Unilateral [facility] Imaging Services [address] [place], [place] [address] Breast Limited Unilateral MR#: [id number] Acct: [id number] Name: CHASITY PATRICIA Rep #: [id number] : 1955 F 68 From: Jason kay MD PCP: Dr. Hector Hernandez MD Status: REG CLI Study: Breast Limited Unilateral Date of Exam: Exam# [id number] Ordering Dr: Barbara Knott IRRIGATOR IRRIGATOR -C PROCEDURE: BREAST LIMITED UNILATERAL REASON FOR EXAM: Abnormal screening mammogram. TECHNIQUE: Targeted left breast sonogram. COMPARISON: Comparison is made with prior mammogram dated May 12, 2024. FINDINGS: LEFT: Left breast ultrasound was targeted to the upper-outer quadrant.. There is a 7 mm x 4 mm x 2 mm benign-appearing lymph node at the 1 o'clock position of the breast at 6 cm from the nipple. US/Breast Limited Unilateral IMPRESSION: 7 mm x 4 mm x 2 mm benign-appearing lymph node at the 1 o'clock position of the breast at 6 cm from the nipple. Follow-up code: Routine Follow-up BI-RADS category: 2 [facility] CC: ROSALIA Knott; Dr. Hector Hernandez MD Equipment Worker: Signed Normal [facility] Dexa Bone Density Studyon Dexa Bone Density Study [facility] Imaging Services [address] [place] [id number] Dexa Bone Density Study MR#: [id number] Acct: [id number] Name: CHASITY PATRICIA Rep #: [id number] : 1955 F 68 From: Jason kay MD PCP: Dr. Hector Hernandez MD Status: REG CLI Study: Dexa Bone Density Study Date of Exam: 05/12/24 Exam# [id number] Ordering Dr: Barbara Knott NP, NP -C PROCEDURE: DEXA BONE DENSITY STUDY REASON FOR EXAM: F, age 68 y/o . Patient is postmenopausal.. TECHNIQUE: DEXA scan of the lumbar spine and both hips. COMPARISON: None. FINDINGS: Lumbar Spine (L1-L4): g/cm2 (1.052)/T-score (0.0)/Z-score (1.9) findings are suggestive of normal with a low fracture risk. Left Femur Total: g/cm2 (0.950)/T-score (0.1)/Z-score (1.4) Left Femoral Neck: g/cm2 (0.824)/T-score (-0.2)/Z-score (1 point) Right Femur Total: g/cm2 (0.895)/T-score (-0.4)/Z-score (0.9) Right Femoral Neck: g/cm2 (0.772)/T-score (-0.7)/Z-score 0.9 BD/Dexa Bone Density Study IMPRESSION: (The patient is considered normal as outlined below according to World [employer] Organization (WHO) criteria with a low fracture risk. Reading Location: [id number] CC: ROSALIA Knott; Dr. Hector Hernandez MD Equipment Worker: Signed Normal [facility] SCRN MAMM (CAD)W/SCOTT BILATo n 05-12-2024 SCRN MAMM (CAD)W/SCOTT BILAT [facility] Imaging Services [address] [place] [id number] SCRN MAMM (CAD)W/SCOTT BILAT MR#: [id number] Acct: [id number] Name: CHASITY PATRICIA Rep #: [id number] : 1955 F 68 From: Jason kay MD PCP: Dr. Hector Hernandez MD Status: DEP CL Study: SCRN MAMM (CAD)W/SCOTT BILAT Date of Exam: 05/02 04/25 Exam# [id number] Ordering Dr: Barbara Knott NP, NP -More ADDENDUM by Dr. Jason Villafuerte MD on 07/01/24 at 0927 This is an addendum report. Comparison is made with prior mammogram dated November 12, 2022. There has been no change. Reading Location: [facility] 07/01/24 0928 Date cc: ROSALIA Knott; Dr. Hector Hernandez MD * Signed PROCEDURE: SCRN MAMM (CAD)W/SCOTT BILAT REASON FOR EXAM: F, Age 68 y/o, no family history. Routine mammographic examination. TECHNIQUE: Bilateral screening digital breast tomosynthesis with 2D and 3D images. Computer aided detection. COMPARISON: Prior exam(s) dating back to November 03, 2020.. FINDINGS: There are scattered areas of fibroglandular density. Stable 6.4 mm well-defined nodule in the deep upper lateral aspect of the left breast. Targeted sonographic correlation recommended. No suspicious masses, areas of developing architectural distortion, or suspicious calcifications. BI/SCRN MAMM (CAD)W/SCOTT BILAT IMPRESSION: BI-RADS 0: INCOMPLETE - NEED ADDITIONAL IMAGING EVALUATION. Follow-up code: Sonographic follow-up recommended. The patient will be notified of the results by letter. Reading Location: [facility] CC: ROSALIA Knott; Dr. Hector Hernandez MD Equipment Worker: Signed Normal [facility] Internal Medicine Office Vis ito 02-18-2024 Internal Medicine Office Visit [facility] [place] [address] [place] [address] OFFICE VISIT Date of Service: 02/19/24 MR#: [id number] Acct: [id number] Name: CHASITY PATRICIA Rep #: [id number] : 1955 Provider: Dr. Hector white MD Age/Sex: 68/F Location: [facility] Status: Signed Intake Vital Signs 08/21/23 13:12 11/27/23 13:45 02/19/24 12:43 Height 5 ft 5 in 5 ft 5 in 5 ft 5 in Weight: 198 lb BMI 32.9 BP 120/76 Blood Pressure Location Lt brachial Position Sitting Respiration 16 Pulse 70 Pulse Source Monitor Temp 97.2 F L Temp Source Temporal Pulse Oximetry (%) 99 Oxygen Delivery Method room air Intake Visit Reasons: 6 M FU Chief Complaint: f/u Manager Compensation Required: No Accompanied by: Self Is patient in pain?: No Allergies Penicillins Adverse Reaction (Verified 02/19/24 12:38) Rash Sulfa (Sulfonamide Antibiotics) Adverse Reaction (Verified 02/19/24 12:38) Rash Medications ???Medication ???Instructions ???Recorded ???Confirmed ???Type cholecalciferol (vitamin D3) 125 125 mcg PO DAILY 09/25/21 02/19/24 History mcg (5,000 unit) capsule ferrous sulfate 325 mg (65 mg 325 mg PO DAILY 09/25/21 02/19/24 History iron) tablet (Feosol) pen needle, diabetic 32 gauge x #100 ea 04/11/22 02/19/24 Rx 5/32 (BD Ultra-Fine Jaz Pen Needle) krill oil 500 mg capsule 500 mg PO DAILY 12/26/22 02/19/24 History BD Ultra-Fine Jaz Pen Needle 32 #100 ea 05/06/23 02/19/24 Rx gauge x 5/32 (pen needle, diabetic) citalopram 20 mg tablet 20 mg PO DAILY #90 TABLETS 10/04/23 02/19/24 Rx metoprolol succinate 50 mg 50 mg PO DAILY #90 TABLETS 10/04/23 02/19/24 Rx tablet,extended release 24 hr rosuvastatin 5 mg tablet 5 mg PO DAILY #90 TABLETS 10/04/23 02/19/24 Rx metformin 500 mg tablet 1,000 mg (2 x 500 mg) PO BID #360 11/08/23 02/19/24 Rx tabs blood-glucose meter,continuous #1 ea 11/27/23 02/19/24 Rx (FreeStyle Tyler 3 Tijeras) insulin glargine-yfgn 100 unit/mL 20 unit (0.2 mL) subcut DAILY #18 11/27/23 02/19/24 Rx (3 mL) subcutaneous pen (Semglee mL (insulin glargine-yfgn) Pen) losartan 100 mg tablet 100 mg PO DAILY #90 tabs 11/27/23 02/19/24 Rx tirzepatide 15 mg/0.5 mL 15 mg (0.5 mL) subcut QWEEK #6 mL 11/27/23 02/19/24 Rx subcutaneous pen injector (Mounjaro) blood-glucose sensor (FreeStyle #6 ea 12/17/23 02/19/24 Rx Tyler 3 Sensor device) fenofibrate nanocrystallized 145 145 mg PO DAILY #90 tabs 01/15/24 02/19/24 Rx mg tablet Have you fallen in the past year?: No PFSH Medical History Psoriasis Vitamin D deficiency Hyperlipemia Cataract Arthritis Allergies Obesity Anxiety Sleep apnea Hypertension Diabetes Surgical History (Updated 02/19/24 @ 12:43 by Meena Colmenares MA) H/O tooth extraction H/O cataract removal with insertion of prosthetic lens Tubal ligation status History of bladder surgery S/P correction of deviated nasal septum Hx of tonsillectomy Family History Father Alcoholism Cancer esophageal Alcoholic cirrhosis Brother Anxiety Grandmother Diabetes Hypertension Mother Diabetes Hypertension Alzheimer's dementia Brother Cancer esophageal Social History household members: spouse and children 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 She is up to date on her routine blood work and still needs to do her screening. She does plan on getting a flu shot, but just had her cataracts done yesterday and would like to wait until her follow up. She doesn't smoke and does not need refills. She reports she is eating healthy and staying active with walking. She does check her sugars at home and reports they generally run in the mostly in the low 100s. She will occasionally have one in the upper 100s, but doesn't have anything over 200. She hasn't had any low sugar readings. She is taking her medication as prescribed without problems. She does try to monitor her carbohydrate and sugar intake. She is up to date on her diabetic eye exam. She follows with endocrinology regularly and saw them in October. She does check her blood pressure at home occasionally. She is taking her medication as prescribed without problems. She does try to monitor her salt intake. (more content not included)... Normal [facility] No Panel InformationOrdered By: Sylwia Gomez on 05-30-2023 Parathyroid Hormone (Intact) 19.8 pg/mL 18.4-80.1 [facility] Vitamin D 25-Hydroxy 37.2 ng/mL [facility] Comment on above: Vitamin D 25(OH) Sta tus Range Deficiency <20 ng/mL (50nmol/L) Insufficiency 20 - 30 ng/mL (50 - 75 nmol/L) Sufficiency 30 - 100 ng/mL (75 - 250 nmol/L) Toxicity >100 ng/mL (>250 nmol/L) Basophil percentageOrdered B y: Sylwia Gomez on 05-29-2023 Bilirubin [Mass/Vol] 0.40 mg/dL 0.20-1.00 [facility] Comment on above: For patients on eltr ombopag therapy, use of Dimension [place] TBIL is not recommended. Chloride [Moles/Vol] 106 mmol/L 98-107 [facility] Cholesterol [Mass/Vol] 152 mg/dL <200 [facility] Comment on above: <200 mg/dL Desirable 200-240 mg/dL Borderline >240 mg/dL High Risk Glucose [Mass/Vol] 109 mg/dL 74-106 [facility] Comment on above: Fasting Glucose resu lt from 100 to 125 mg/dL suggests IMPAIRED HOMEOSTASIS per A.D.A. criteria. Potassium [Moles/Vol] 4.3 mmol/L 3.5-5.1 [facility] Protein [Mass/Vol] 7.7 g/dL 6.4-8.2 [facility] Sodium [Moles/Vol] 139 mmol/L 136-145 [facility] Triglyceride [Mass/Vol] 90 mg/dL <199 [facility] Comment on above: The drugs N-Acetylcy steine and Metamizole may falsely depress this assay.Serum Triglycerides Reference Interval Normal <150 mg/dL Borderline high 150 - 199 mg/dL High 200 - 499 mg/dL Very High > or = 500 mg/dL Laboratory - Chemistry and C hemistry - challengeOrdered By: Sylwia Gomez on 05-29-2023 Albumin/Globulin [Mass ratio] 1.6 {ratio} 0.9-2.4 [facility] ALP [Catalytic activity/Vol] 34 U/L 45-117 [facility] ALT [Catalytic activity/Vol] 23 U/L 13-56 [facility] Cholesterol in HDL [Mass/Vol] 58 mg/dL >40 [facility] Comment on above: The drugs N-Acetylcy steine and Metamizole may falsely depress this assay. Reference Range HDL <40 mg/dL Low HDL Cholesterol HDL >or= 60 mg/dL High HDL Cholesterol Cholesterol in LDL [Mass/Vol] 76 mg/dL 0-130 [facility] CO2 [Moles/Vol] 26.0 mmol/L 21.0-32.0 [facility] Globulin (S) [Mass/Vol] 3.0 g/dL 2.2-4.2 [facility] Urea nitrogen/Creatinine [Mass ratio] 21.9 mg/mg 10-20 [facility] Laboratory - Hematology and Cell countson 05-29-2023 HbA1c (Bld) [Mass fraction] 6.3 % 4.2-6.3 [facility] No Panel InformationOrdered By: Sylwia Gomez on 05-29-2023 Estimated GFR (MDRD) Amer 84 mL/min >60 [facility] Comment on above: GFR Calc Estimated GFR (MDRD) Non-Af Amer 70 mL/min >60 [facility] Comment on above: Non- GFR Calc Urine Microalbumin/Creatinine Ratio 32.7 mg/g CRE <30 [facility] VLDL Cholesterol 18 mg/dL 5-40 [facility] Serum or plasma calcium stephon urement (mass/volume)Ordered By: Sylwia Gomez on 05-29-2023 Calcium [Mass/Vol] 10.2 mg/dL 8.5-10.1 [facility] Serum or plasma creatinine m easurement (mass/volume)Ordered By: Sylwia Gomez on 05-29-2023 Creatinine [Mass/Vol] 0.87 mg/dL 0.55-1.02 [facility] Comment on above: The validity of the calculated GFR & GFRAA in patients over 70 years has not been determined. Clinical correlation is essential. Serum or plasma thyroid stim ulating hormone (TSH) measurement (units/volume)Ordered By: Sylwia Gomez on 05-29-2023 TSH Qn 0.79 uIU/mL 0.358-3.74 [facility] Serum or plasma urea nitroge n measurement (mass/volume)Ordered By: Sylwia Gomez on 05-29-2023 Urea nitrogen [Mass/Vol] 19 mg/dL 7-18 [facility] Thin prep Papanicolaou smear with manual screeningOrdered By: Sylwia Gomez on 05-29-2023 Thin prep Papanicolaou smear with manual screening 4.7 g/dL 3.2-5.0 [facility] Thin prep Papanicolaou smear with manual screening 15 U/L 15-37 [facility] Thin prep Papanicolaou smear with manual screening 7 5-15 [facility] Thin prep Papanicolaou smear with manual screening 16.1 mg/L NO RANGE EST. [facility] Urine creatinine measurement (mass/volume)Ordered By: Sylwia Gomez on 05-29-2023 Creatinine (U) [Mass/Vol] 49.20 mg/dL NO RANGE EST. [facility] SCREENINGon 11-12-2022 [facility] LEVON SCREENINGon 11-07-2021 [facility] - Hematology and Cell countson 09-25-2021 HbA1c (Bld) [Mass fraction] 10.2 % [facility] Work Phone: Vital Signs Date Time Vital Sign Value Performing Clinician Facility 11-25-2024 13:35-0400 Body height 165.[address] Hector Hernandez MD Work Phone: [facility] 11-25-2024 13:35-0400 Body mass index (BMI) [Ratio] 33.1 kg/m2 Dr. Hector Hernandez MD Work Phone: [facility] 11-25-2024 13:35-0400 Body weight 90.[address] Hector Hernandez MD Work Phone: [facility] 11-25-2024 13:35-0400 Diastolic blood pressure 83 mm[Hg] Dr. Hector Hernandez MD Work Phone: [facility] 11-25-2024 13:35-0400 Heart rate 67 /min Dr. Hector Hernandez MD Work Phone: [facility] 11-25-2024 13:35-0400 SaO2% (BldA) [Mass fraction] 98 % Dr. Hector Hernandez MD Work Phone: [facility] 11-25-2024 13:35-0400 Systolic blood pressure 150 mm[Hg] Dr. Hector Hernandez MD Work Phone: [facility] 05-27-2024 13:39-0500 Body height 165.[address] Hector Hernandez MD Work Phone: [facility] 05-27-2024 13:39-0500 Body mass index (BMI) [Ratio] 33.1 kg/m2 Dr. Hector Hernandez MD Work Phone: [facility] 05-27-2024 13:39-0500 Body weight 90.[address] Hector Hernandez MD Work Phone: [facility] 05-27-2024 13:39-0500 Diastolic blood pressure 85 mm[Hg] Dr. Hector Hernandez MD Work Phone: [facility] 05-27-2024 13:39-0500 Heart rate 79 /min Dr. Hector Hernandez MD Work Phone: [facility] 05-27-2024 13:39-0500 SaO2% (BldA) [Mass fraction] 99 % Dr. Hector Hernandez MD Work Phone: [facility] 05-27-2024 13:39-0500 Systolic blood pressure 145 mm[Hg] Dr. Hector Hernandez MD Work Phone: [facility] 02-19-2024 12:43-0500 Body mass index (BMI) [Ratio] 32.9 kg/m2 Dr. Hector Hernandez MD Work Phone: [facility] 02-19-2024 12:43-0500 Body temperature 97.2 [degF] Dr. Hector Hernandez MD Work Phone: [facility] 02-19-2024 12:43-0500 Body weight 89.[address] Hector Hernandez MD Work Phone: [facility] 02-19-2024 12:43-0500 Diastolic blood pressure 76 mm[Hg] Dr. Hector Hernandez MD Work Phone: [facility] 02-19-2024 12:43-0500 Heart rate 70 /min Dr. Hector Hernandez MD Work Phone: [facility] 02-19-2024 12:43-0500 Respiratory rate 16 /min Dr. Hector Hernandez MD Work Phone: [facility] 02-19-2024 12:43-0500 SaO2% (BldA) [Mass fraction] 99 % Dr. Hector Hernandez MD Work Phone: [facility] 02-19-2024 12:43-0500 Systolic blood pressure 120 mm[Hg] Dr. Hector Hernandez MD Work Phone: [facility] 05-29-2023 14:00-0500 Body height 165.[address] Chilo Mckeon Work Phone: [facility] 05-29-2023 14:00-0500 Body mass index (BMI) [Ratio] 32.5 kg/m2 Dr. Chilo Mckeon Work Phone: [facility] 05-29-2023 14:00-0500 Body temperature 97.8 [degF] Dr. Chilo Mckeon Work Phone: [facility] 05-29-2023 14:00-0500 Body weight 88.[address] Chilo Mckeon Work Phone: [facility] 05-29-2023 14:00-0500 Diastolic blood pressure 79 mm[Hg] Dr. Chilo Mckeon Work Phone: [facility] 05-29-2023 14:00-0500 Heart rate 72 /min Dr. Chilo Mckeon Work Phone: [facility] 05-29-2023 14:00-0500 Respiratory rate 16 /min Dr. Chilo Mckeon Work Phone: [facility] 05-29-2023 14:00-0500 SaO2% (BldA) [Mass fraction] 98 % Dr. Chilo Mckeon Work Phone: [facility] 05-29-2023 14:00-0500 Systolic blood pressure 132 mm[Hg] Dr. Chilo Mckeon Work Phone: 1(108)256-268526 [place] [address] 02-20-2023 12:57-0500 Body mass index (BMI) [Ratio] 33.3 kg/m2 Dr. Chilo Mckeon Work Phone: 6(291)146-573926 [place] [address] 02-20-2023 12:57-0500 Body temperature 97.8 [degF] Dr. Chilo Mckeon Work Phone: 7(719)639-376026 [place] [address] 02-20-2023 12:57-0500 Body weight 90.[address] Chilo Mckeon Work Phone: 3(817)426-837726 [place] [address] 02-20-2023 12:57-0500 Diastolic blood pressure 82 mm[Hg] Dr. Chilo Mckeon Work Phone: 4(316)359-411126 [place] [address] 02-20-2023 12:57-0500 Heart rate 81 /min Dr. Chilo Mckeon Work Phone: 7(278)850-301965 [place] [address] 02-20-2023 12:57-0500 Respiratory rate 16 /min Dr. Chilo Mckeon Work Phone: 5(351)869-314665 [place] [address] 02-20-2023 12:57-0500 SaO2% (BldA) [Mass fraction] 99 % Dr. Chilo Mckeon Work Phone: 6(586)501-038665 [place] [address] 02-20-2023 12:57-0500 Systolic blood pressure 118 mm[Hg] Dr. Chilo Mckeon Work Phone: [facility] 09-11-2022 09:32-0400 Body temperature 97.59 [degF] Chilo Mckeon MD Work Phone: [facility] 09-11-2022 09:32-0400 Body weight 94.8 kg Chilo Mckeon MD Work Phone: [facility] 09-11-2022 09:32-0400 Diastolic blood pressure 82 mm[Hg] Chilo Mckeon MD Work Phone: [facility] 09-11-2022 09:32-0400 Heart rate 77 /min Chilo Mckeon MD Work Phone: [facility] 09-11-2022 09:32-0400 Respiratory rate 18 /min Chilo Mckeon MD Work Phone: [facility] 09-11-2022 09:32-0400 SaO2% (BldA) [Mass fraction] 97 % Chilo Mckeon MD Work Phone: [facility] 09-11-2022 09:32-0400 Systolic blood pressure 152 mm[Hg] Chilo Mckeon MD Work Phone: [facility] 10-16-2021 10:58-0400 Body weight 91.63 kg Peyton Martins SUPERVISOR OF RESEARCH.WR[employer]PER [employer] Work Phone: [facility] 10-16-2021 10:58-0400 Diastolic blood pressure 80 mm[Hg] Peyton Martins SUPERVISOR OF RESEARCH.WR[employer]PER [employer] Work Phone: [facility] 10-16-2021 10:58-0400 Heart rate 68 /min Peyton Martins SUPERVISOR OF RESEARCH.WR[employer]PER [employer] Work Phone: [facility] 10-16-2021 10:58-0400 Respiratory rate 16 /min Peyton Martins SUPERVISOR OF RESEARCH.WR[employer]PER [employer] Work Phone: [facility] 10-16-2021 10:58-0400 SaO2% (BldA) [Mass fraction] 99 % Peyton Martins SUPERVISOR OF RESEARCH.WR[employer]PER [employer] Work Phone: [facility] 10-16-2021 10:58-0400 Systolic blood pressure 138 mm[Hg] Peyton Martins SUPERVISOR OF RESEARCH.WR[employer]PER [employer] Work Phone: [facility] 09-25-2021 11:19-0400 Body height 165.[address] Chilo Mckeon Work Phone: [facility] Work Phone: 09-25-2021 11:19-0400 Body mass index (BMI) [Ratio] 33.5 kg/m2 Dr. Chilo Mckeon Work Phone: [facility] Work Phone: 09-25-2021 11:19-0400 Body temperature 95.3 [degF] Dr. Chilo Mckeon Work Phone: [facility] Work Phone: 09-25-2021 11:19-0400 Body weight 91.[address] Chilo Mckeon Work Phone: [facility] Work Phone: 09-25-2021 11:19-0400 Diastolic blood pressure 80 mm[Hg] Dr. Chilo Mckeon Work Phone: [facility] Work Phone: 09-25-2021 11:19-0400 Heart rate 73 /min Dr. Chilo Mckeon Work Phone: [facility] Work Phone: 09-25-2021 11:19-0400 Respiratory rate 18 /min Dr. Chilo Mckeon Work Phone: [facility] Work Phone: 09-25-2021 11:19-0400 SaO2% (BldA) [Mass fraction] 100 % Dr. Chilo Mckeon Work Phone: [facility] Work Phone: 09-25-2021 11:19-0400 Systolic blood pressure 140 mm[Hg] Dr. Cihlo Mckeon Work Phone: [facility] Work Phone: 06-13-2021 10:32-0400 Diastolic blood pressure 70 mm[Hg] Chilo Mckeon MD Work Phone: [facility] 06-13-2021 10:32-0400 Systolic blood pressure 128 mm[Hg] Chilo Mckeon MD Work Phone: [facility] 06-13-2021 09:46-0400 Body weight 98.43 kg Chilo Mckeon MD Work Phone: [facility] 06-13-2021 09:46-0400 Heart rate 78 /min Chilo Mckeon MD Work Phone: [facility] Encounters Encounter Date Encounter Type Care Provider Facility Start: 11-25-2024 End: 11-25-2024 Patient encounter procedure Sylwia Gomez NP-C -[facility] Work Phone: Start: 11-25-2024 End: 11-25-[address] Hector Hernandez MD Work Phone: [facility] Comment on above: Allied Health Visit (Medication Adherence Outreach/) Start: 08-04-2024 End: 08-04-2024 ambulatory Chilo Mckeon MD Work Phone: [facility] Start: 08-04-2024 End: 08-04-2024 Patient encounter procedure Chilo Mckeon MD Work Phone: [facility] Comment on above: Population Health Na vigation Outreach ([facility] ) Start: 06-08-2024 End: 06-08-2024 ambulatory Mart Hunt MA [facility] Start: 06-08-2024 End: 06-08-2024 Patient encounter procedure Mart Hunt MA [facility] Comment on above: Population Health Na vigation Outreach ([employer] [facility]) Start: 05-27-2024 End: 05-27-2024 Patient encounter procedure Sylwia LINDSEY -[facility] Work Phone: Start: 05-27-2024 End: 05-27-[address] Hector Hernandez MD Work Phone: [facility] Work Phone: Start: 05-27-2024 End: 05-27-2024 ambulatory Hector Hernandez Facility:[facility] Start: 05-21-2024 End: 05-21-2024 Patient encounter procedure Barbara Knott IRRIGATOR-C [facility] Work Phone: Start: 05-21-2024 End: 05-21-2024 ambulatory Barbara Knott IRRIGATOR Facility:[facility] Start: 05-12-2024 End: 05-12-2024 Patient encounter procedure Barbara Knott IRRIGATOR-C -[facility] Densitometry Work Phone: Start: 05-12-2024 End: 05-12-2024 ambulatory Barbara Knott IRRIGATOR Facility:[facility] Start: 05-05-2024 End: 05-05-2024 ambulatory Mart Hunt MA [facility] Start: 05-05-2024 End: 05-05-2024 Patient encounter procedure Mart Hunt MA [facility] Comment on above: Population Health Na vigation Outreach ([facility] Start: 02-21-2024 End: 02-21-2024 ambulatory Mart Hunt MA [facility] Start: 02-21-2024 End: 02-21-2024 Patient encounter procedure Mart Hunt MA [facility] Comment on above: Population Health Na vigation Outreach ([employer] [facility]) Start: 02-19-2024 End: 02-19-[address] Hector Hernandez MD -[facility] Work Phone: Start: 02-19-2024 End: 02-19-2024 ambulatory Hector Hernandez Facility:[facility] Start: 12-25-2023 End: 12-30-2023 ambulatory Chilo Mckeon MD Work Phone: [facility] [place] Start: 10-07-2023 ambulatory Martky Hunt [facility] Start: 10-07-2023 Patient encounter procedure Mart Hunt MA [facility] Comment on above: Population Health Na vigation Outreach ([facility] Start: 05-30-2023 End: 05-30-[address] Chilo Mckeon Work Phone: [facility] Work Phone: Start: 05-30-2023 End: 05-30-[address] Chilo Mckeon Work Phone: [facility] Work Phone: Start: 05-29-2023 End: 05-29-[address] Chilo Mckeon Work Phone: [facility] Work Phone: Start: 05-29-2023 End: 05-29-[address] Chilo Mckeon Work Phone: [facility] Work Phone: Start: 02-20-2023 End: 02-20-[address] Chilo Mckeon Work Phone: [facility] Work Phone: Start: 11-13-2022 Documentation procedure [facility] Start: 11-13-2022 Letter encounter Mammography Coordinator [facility] Start: 11-12-2022 End: 11-12-2022 Subsequent hospital visit by physician Screen Mammo [facility] Comment on above: Encounter for screen ing mammogram for breast cancer [Z12.31] Start: 09-11-2022 End: 09-11-2022 Office outpatient visit 25 minutes Chilo Mckeon MD Work Phone: [facility] [place] Comment on above: Type 2 diabetes johnathan itus without complication, with long-term current use of insulin (HCC) (Primary Dx); HTN (hypertension), benign; Mixed hyperlipidemia; GABBIE on CPAP; Vitamin D deficiency; Obesity (BMI 30.0-34.9); Encounter for screening mammogram for breast cancer Start: 08-25-2022 ambulatory Chilo castellanos MD Work Phone: [facility] Start: 08-25-2022 Patient encounter procedure Chilo Mckeon MD Work Phone: [facility] [place] Comment on above: Labs for upcoming ap pointment. Start: 01-04-2022 Telephone encounter Chilo krishnan MD Work Phone: [facility] [place] Comment on above: Release Of Medical R ecords Start: 11-24-2021 End: 11-24-[address] Chilo Mckeon Work Phone: [facility] Work Phone: Start: 11-24-2021 End: 11-24-[address] Chilo Mckeon Work Phone: [facility], Specimen Start: 11-07-2021 Documentation procedure Mammog eugenia [facility] Start: 11-07-2021 Letter encounter Mammography Coordinator [facility] Start: 11-07-2021 End: 11-07-2021 Subsequent hospital visit by physician Screen Mammo [facility] Comment on above: Encounter for screen ing mammogram for breast cancer [Z12.31] Start: 10-17-2021 ambulatory Peyton KWOKWRAPPER STEMMER HAND Work Phone: [facility] [place] Comment on above: Vitamin D3 Start: 10-16-2021 End: 10-16-2021 Patient encounter procedure Peyton Martins APRN.WR[employer]PER [employer] Work Phone: [facility] [place] Comment on above: Uncontrolled type 2 diabetes mellitus with hyperglycemia (HCC) (Primary Dx); Encounter for immunization; Encounter for screening mammogram for breast cancer; HTN (hypertension), benign; Mixed hyperlipidemia Start: 09-25-2021 End: 09-25-[address] Chilo Mckeon Work Phone: [facility] Start: 08-11-2021 Refill Chilo castellanos MD Work Phone: [facility] [place] Comment on above: Refill Request Start: 07-25-2021 ambulatory Chilo castellanos MD Work Phone: [facility] Start: 07-25-2021 Patient encounter procedure Chilo Mckeon MD Work Phone: [facility] [place] Comment on above: Requesting a referra l Start: 07-21-2021 ambulatory Chilo castellanos MD Work Phone: [facility] [place] Comment on above: Insulin pen needles Start: 06-13-2021 End: 06-13-2021 Office outpatient visit 25 minutes Chilo Mckeon MD Work Phone: [facility] [place] Comment on above: Uncontrolled type 2 diabetes mellitus with hyperglycemia (HCC) (Primary Dx); HTN (hypertension), benign; Mixed hyperlipidemia; Vitamin D deficiency; Class 2 obesity due to excess calories with body mass index (BMI) of 35.0 to 35.9 in adult, unspecified whether serious comorbidity present Procedures Date Procedure Procedure Detail Performing Clinician Start: 05-21-[address] Hector Hernandez MD Work Phone: Start: 05-12-2024 Dual energy X-ray absorptiometry Dr. Hector Hernandez MD Work Phone: Start: 05-12-2024 Screening mammography Radha Hernandez MD Work Phone: Start: 11-12-2022 End: 11-12-2022 Mammography Chilo Mckeon MD Work Phone: Start: 11-07-2021 End: 11-07-2021 Screening mammography bi 2-view breast inc cad Peyton Martins APRN.[employer] Work Phone: Start: 10-09-2021 Adult depression scr eening assessment Peyton Martins APRN.WR[employer]PER [employer] Work Phone: Start: 11-03-2020 Mammography Chilo najera MD Work Phone: Start: 10-07-2020 Adult depression scr eening assessment Chilo Mckeon MD Work Phone: Start: 10-16-2018 Colonoscopy Chilo najera MD Work Phone: Plan of Treatment Date Care Activity Detail Author Start: 10-16-2028 Colonoscopy COLONOSCOPY [facility] Start: 10-16-2028 COLORECTAL CANCER SCREENING COLORECTAL CANCER SCREENING [facility] Start: 10-16-2028 Screening for malign ant neoplasm of colon [facility] Start: 11-27-2026 HPV TESTING HPV TESTING [facility] Start: 11-27-2026 PAP TESTING PAP TESTING [facility] Start: 11-30-2024 Influenza vaccination Influenza Vacc ine (#1) [facility] Start: 09-16-2024 HPV TESTING HPV TESTING [facility] Start: 09-16-2024 PAP TESTING PAP TESTING [facility] Start: 06-22-2024 Urine microalbumin profile [facility] Start: 04-01-2024 Advance Directive Discussion Advance Directive Discussion [facility] Start: 04-01-2024 Medicare Advantage Annual Wellness Visit Medicare Advantage Annual Wellness Visit [facility] Start: 12-01-2023 Covid-19 Vaccine () Covid-19 Vaccine () [facility] Start: 12-01-2023 Influenza vaccination Influenza Vacc ine (#1) [facility] Start: 11-13-2023 Mammography [facility] Start: 11-13-2023 Screening for malign ant neoplasm of breast Mammogram Screening [facility] Start: 09-12-2023 ANNUAL PCP TEAM SPONGE FISHERMAN SABINE DISEASE VISIT ANNUAL PCP TEAM CHRONIC DISEASE VISIT [facility] Start: 09-12-2023 COVID-19 VACCINE (4 - Booster for Moderna series) COVID-19 VACCINE (4 - Booster for Moderna series) [facility] Comment on above: Postponed from 05/23 (Declined at this time) Start: 09-12-2023 COVID-19 VACCINE (4 - Moderna series) COVID-19 VACCINE (4 - Moderna series) [facility] Comment on above: Postponed from 05/23 (Declined at this time) Start: 09-12-2023 SHINGRIX VACCINE (1 of 2) SHINGRIX VACCINE (1 of 2) [facility] Comment on above: Postponed from 12/29 (Declined at this time) Start: 09-06-2023 Hepatitis B screening URINE AL BUMIN:CREATININE RATIO [facility] Start: 09-06-2023 Hepatitis B surface antibody level LDL CHOLESTEROL [facility] Start: 04-24-2023 Shingrix Vaccine (2 of 2) Shingrix Vaccine (2 of 2) [facility] Start: 04-01-2023 Advance Directive Discussion Advance Directive Discussion [facility] Start: 04-01-2023 Behavioral Health Screening Behavioral Health Screening [facility] Start: 03-13-2023 End: 05-13-2023 25-hydroxyvitamin D3 [Mass/volume] in Serum or Plasma VITAMIN D 25 HYDROXY Lab Routine Vitamin D deficiency Expected: 03/13/2023 (Approximate), Expires: 05/13/2023 [facility] Work Phone: Comment on above: Expected: 03/13/2023 (Approximate), Expires: 05/13/2023 Start: 03-13-2023 End: 05-13-2023 ALBUMIN/CREAT RATIO RND UR ALBUMIN/CREAT RATIO RND UR Lab Routine Type 2 diabetes mellitus without complication, with long-term current use of insulin (HCC) Expected: 03/13/2023 (Approximate), Expires: 05/13/2023 [facility] Work Phone: Comment on above: Expected: 03/13/2023 (Approximate), Expires: 05/13/2023 Start: 03-13-2023 End: 05-13-2023 CBC panel - Blood by Automated count CBC Lab Routine Type 2 diabetes mellitus without complication, with long-term current use of insulin (HCC) HTN (hypertension), benign Expected: 03/13/2023 (Approximate), Expires: 05/13/2023 [facility] Work Phone: Comment on above: Expected: 03/13/2023 (Approximate), Expires: 05/13/2023 Start: 03-13-2023 End: 05-13-2023 Comprehensive metabolic 2000 panel - Serum or Plasma COMP METABOLIC PANEL Lab Routine Type 2 diabetes mellitus without complication, with long-term current use of insulin (HCC) HTN (hypertension), benign Expected: 03/13/2023 (Approximate), Expires: 05/13/2023 [facility] Work Phone: Comment on above: Expected: 03/13/2023 (Approximate), Expires: 05/13/2023 Start: 03-13-2023 End: 05-13-2023 Hemoglobin A1c in Blood HGB A1C Lab Routine Type 2 diabetes mellitus without complication, with long-term current use of insulin (HCC) Expected: 03/13/2023 (Approximate), Expires: 05/13/2023 [facility] Work Phone: Comment on above: Expected: 03/13/2023 (Approximate), Expires: 05/13/2023 Start: 03-13-2023 End: 05-13-2023 Lipid 1996 panel - Serum or Plasma LIPID PANEL BASIC Lab Routine Mixed hyperlipidemia Expected: 03/13/2023 (Approximate), Expires: 05/13/2023 [facility] Work Phone: Comment on above: Expected: 03/13/2023 (Approximate), Expires: 05/13/2023 Start: 03-07-2023 Hemoglobin A1c measurement HbA1C [facility] Start: 03-07-2023 Hemoglobin A1c/Hemoglobin.total in Blood HBA1C [facility] Start: 2022 Advance Directive Discussion Advance Directive Discussion [facility] Start: 2022 Bone Density Screening Bone Density Screening [facility] Start: 2022 Screening for osteoporosis Bone Density Screening [facility] Start: 12-08-2022 Glaucoma screening Dilated Retinal E xam [facility] Start: 12-08-2022 Hepatitis C antibody , confirmatory test DILATED RETINAL EXAM [facility] Start: 11-30-2022 Covid-19 Vaccine ( season) Covid-19 Vaccine ( season) [facility] Start: 11-30-2022 Influenza vaccination C [facility] Start: 11-07-2022 Mammography MAMMOGRAM [facility] Start: 10-16-2022 3 comp foot exam completed DIABETIC FOOT EXAM [facility] Start: 10-16-2022 Diabetic foot examination Diabetic Foot Exam [facility] Start: 10-09-2022 Adult depression screening assessment DEPRESSION SCREENING [facility] Start: 09-06-2022 End: 11-06-2022 25-hydroxyvitamin D3 [Mass/volume] in Serum or Plasma VITAMIN D 25 HYDROXY Lab Routine Vitamin D deficiency Encounter for therapeutic drug monitoring Expected: 09/06/2022, Expires: 11/06/2022 [facility] Work Phone: Comment on above: Expected: 09/06/2022 , Expires: 11/06/2022 Start: 09-06-2022 End: 11-06-2022 ALBUMIN/CREAT RATIO RND UR ALBUMIN/CREAT RATIO RND UR Lab Routine Uncontrolled type 2 diabetes mellitus with hyperglycemia (HCC) Encounter for therapeutic drug monitoring Expected: 09/06/2022, Expires: 11/06/2022 [facility] Work Phone: Comment on above: Expected: 09/06/2022 , Expires: 11/06/2022 Start: 09-06-2022 End: 11-06-2022 CBC W Auto Differential panel - Blood CBC + DIFF Lab Routine Encounter for therapeutic drug monitoring Expected: 09/06/2022, Expires: 11/06/2022 [facility] Work Phone: Comment on above: Expected: 09/06/2022 , Expires: 11/06/2022 Start: 09-06-2022 End: 11-06-2022 Comprehensive metabolic 2000 panel - Serum or Plasma COMP METABOLIC PANEL Lab Routine Encounter for therapeutic drug monitoring Expected: 09/06/2022, Expires: 11/06/2022 [facility] Work Phone: Comment on above: Expected: 09/06/2022 , Expires: 11/06/2022 Start: 09-06-2022 End: 11-06-2022 Hemoglobin A1c in Blood HGB A1C Lab Routine Uncontrolled type 2 diabetes mellitus with hyperglycemia (HCC) Encounter for therapeutic drug monitoring Expected: 09/06/2022, Expires: 11/06/2022 [facility] Work Phone: Comment on above: Expected: 09/06/2022 , Expires: 11/06/2022 Start: 09-06-2022 End: 11-06-2022 Lipid 1996 panel - Serum or Plasma LIPID PANEL BASIC Lab Routine Mixed hyperlipidemia Encounter for therapeutic drug monitoring Expected: 09/06/2022, Expires: 11/06/2022 [facility] Work Phone: Comment on above: Expected: 09/06/2022 , Expires: 11/06/2022 Start: 06-13-2022 ANNUAL PCP TEAM SPONGE FISHERMAN SABINE DISEASE VISIT ANNUAL PCP TEAM CHRONIC DISEASE VISIT [facility] Start: 06-13-2022 BP CONTROLLED (<130/80) BP CONTROLLE D (<130/80) [facility] Start: 06-13-2022 SHINGRIX VACCINE (1 of 2) SHINGRIX VACCINE (1 of 2) [facility] Comment on above: Postponed from 12/29 (Declined at this time) Start: 06-12-2022 Hepatitis B surface antibody level LDL CHOLESTEROL [facility] Start: 05-16-2022 Hemoglobin A1c/Hemoglobin.total in Blood HBA1C [facility] Start: 04-01-2022 DEPRESSION ASSESSMENT DEPRESSION ASS ESSMENT [facility] Start: 01-16-2022 End: 03-18-2022 Hemoglobin A1c in Blood HGB A1C Lab Routine Uncontrolled type 2 diabetes mellitus with hyperglycemia (HCC) Expected: 01/16/2022, Expires: 03/18/2022 [facility] Work Phone: Comment on above: Expected: 01/16/2022 , Expires: 03/18/2022 Start: 01-13-2022 Hemoglobin A1c/Hemoglobin.total in Blood HBA1C [facility] Start: 12-06-2021 Hepatitis C antibody , confirmatory test DILATED RETINAL EXAM [facility] Start: 11-30-2021 Influenza vaccination INFLUENZA (#1) [facility] Start: 11-03-2021 Mammography MAMMOGRAM [facility] Start: 10-16-2021 End: 12-16-2021 ALBUMIN/CREAT RATIO RND UR ALBUMIN/CREAT RATIO RND UR Lab Routine Uncontrolled type 2 diabetes mellitus with hyperglycemia (HCC) Expected: 10/16/2021, Expires: 12/16/2021 [facility] Work Phone: Comment on above: Expected: 10/16/2021 , Expires: 12/16/2021 Start: 10-16-2021 End: 12-16-2021 Lipid 1996 panel - Serum or Plasma LIPID PANEL BASIC Lab Routine Uncontrolled type 2 diabetes mellitus with hyperglycemia (HCC) Expected: 10/16/2021, Expires: 12/16/2021 [facility] Work Phone: Comment on above: Expected: 10/16/2021 , Expires: 12/16/2021 Start: 10-13-2021 End: 12-13-2021 Basic metabolic 2000 panel - Serum or Plasma BASIC METABOLIC PNL Lab Routine Uncontrolled type 2 diabetes mellitus with hyperglycemia (HCC) Expected: 10/13/2021 (Approximate), Expires: 12/13/2021 [facility] Work Phone: Comment on above: Expected: 10/13/2021 (Approximate), Expires: 12/13/2021 Start: 10-13-2021 End: 12-13-2021 Hemoglobin A1c/Hemoglobin.total in Blood HGB A1C Lab Routine Uncontrolled type 2 diabetes mellitus with hyperglycemia (HCC) Expected: 10/13/2021 (Approximate), Expires: 12/13/2021 [facility] Work Phone: Comment on above: Expected: 10/13/2021 (Approximate), Expires: 12/13/2021 Start: 10-10-2021 3 comp foot exam completed DIABETIC FOOT EXAM [facility] Start: 10-07-2021 Adult depression screening assessment DEPRESSION SCREENING [facility] Start: 09-12-2021 Hemoglobin A1c/Hemoglobin.total in Blood HBA1C [facility] Start: 07-27-2021 COVID-19 VACCINE (4 - Booster for Moderna series) COVID-19 VACCINE (4 - Booster for Moderna series) [facility] Start: 06-28-2021 Hepatitis B screening URINE AL BUMIN:CREATININE RATIO [facility] Start: 05-23-2021 COVID-19 VACCINE (4 - Booster for Moderna series) COVID-19 VACCINE (4 - Booster for Moderna series) [facility] Start: 04-01-2021 DEPRESSION ASSESSMENT DEPRESSION ASS ESSMENT [facility] Start: 2017 Hepatitis B Vaccine (1 of 3 - Risk 3-dose series) Hepatitis B Vaccine (1 of 3 - Risk 3-dose series) [facility] Start: 2017 RSV Vaccine (1 - 1-d ose 60+ series) RSV Vaccine (1 - 1-dose 60+ series) [facility] Start: 2017 RSV Vaccine (1 - Ris k 60-74 years 1-dose series) RSV Vaccine (1 - Risk 60-74 years 1-dose series) [facility] Start: 04-25-2013 PNEUMOCOCCAL (2 - PCV) PNEUMOCOCCAL (2 - PCV) [facility] Start: 12-30-2007 SHINGRIX VACCINE (1 of 2) SHINGRIX VACCINE (1 of 2) [facility] Start: 2002 COLOGUARD (FIT-DNA) COLOGUARD (FIT-D NA) [facility] Start: [address] COLONOGRAPHY [facility] Start: 2002 FECAL OCCULT BLOOD FECAL OCCULT BLOO D [facility] Start: 2002 Screening for malign ant neoplasm of colon [facility] Start: 2002 SIGMOIDOSCOPY SIGMOIDOSCOPY [facility] Start: 12-30-1975 BP CONTROLLED (<130/80) BP CONTROLLE D (<130/80) [facility] Start: 12-30-1975 Depression Screening Depression Scre ening [facility] 25-hydroxyvitamin D3 [Mass/volume] in Serum or Plasma VITAMIN D 25 HYDROXY Lab Routine Vitamin D deficiency Encounter for therapeutic drug monitoring 09/05/2022 12:50 PM EDT [facility] Work Phone: ALBUMIN/CREAT RATIO RND UR ALBUMIN/CREAT RATIO RND UR Lab Routine Uncontrolled type 2 diabetes mellitus with hyperglycemia (HCC) Encounter for therapeutic drug monitoring 09/05/2022 12:50 PM EDT [facility] Work Phone: CBC W Auto Different ial panel - Blood CBC + DIFF Lab Routine Encounter for therapeutic drug monitoring 09/05/2022 12:50 PM T [facility] Work Phone: Comprehensive metabo lic 2000 panel - Serum or Plasma COMP METABOLIC PANEL Lab Routine Encounter for therapeutic drug monitoring 09/05/2022 12:50 PM T [facility] Work Phone: End: 01-23-2025 DBT Breast - bilateral screening [facility] SCRE[facility] Routine Encounter for screening mammogram for breast cancer 1 Occurrences starting 12/25/2023 until 01/23/2025 [facility] Work Phone: Comment on above: 1 Occurrences starti ng 12/25/2023 until 01/23/2025 Hemoglobin A1c in Blood HGB A1C Lab Routine Uncontrolled type 2 diabetes mellitus with hyperglycemia (HCC) Encounter for therapeutic drug monitoring 09/05/2022 12:50 PM EDT [facility] Work Phone: Lipid 1996 panel - Serum or Plasma LIPID PANEL BASIC Lab Routine Mixed hyperlipidemia Encounter for therapeutic drug monitoring 09/05/2022 12:50 PM EDT [facility] Work Phone: End: 10-11-2023 [facility] SCREENING [facility] SCREENING Radiology Routine Encounter for screening mammogram for breast cancer 1 Occurrences starting 09/11/2022 until 10/11/2023 [facility] Work Phone: Comment on above: 1 Occurrences starti ng 09/11/2022 until 10/11/2023 Path report.final Dx Spec [facility] Work Phone: PFIZER-BIONTECH COVID-19 VACCINE, AGE 12+ YR (MCDOWELL TOP) PFIZER-BIONTECH COVID-19 VACCINE, AGE 12+ YR (MCDOWELL TOP) Immunization/Injection Routine Encounter for immunization 1 Occurrences starting 10/16/2021 [facility] Work Phone: Comment on above: 1 Occurrences starti ng 10/16/2021 End: 11-15-2022 Screening mammography bi 2-view breast inc cad [facility] SCREENING Radiology Routine Encounter for screening mammogram for breast cancer 1 Occurrences starting 10/16/2021 until 11/15/2022 [facility] Work Phone: Comment on above: 1 Occurrences starti ng 10/16/2021 until 11/15/2022 [facility] Immunizations Immunization Date Immunization Notes Care Provider Fa [facility] 03-12-2024 influenza, seasonal, injectable Martky [facility] 03-12-2024 respiratory syncytia l virus (RSV) vaccine, adjuvanted (AREXVY) [facility] influenza virus vacc ine, unspecified formulation Hector Hernandez MD Work Phone: [facility] 02-27-2023 influenza, injectabl e, quadrivalent, preservative free Dr. Hector Hernandez MD Work Phone: [facility] 02-27-[address] Hector Hernandez MD Work Phone: [facility] 02-20-2023 pneumococcal polysaccharide vaccine, [address] 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 Work Phone: 03-28-2021 COVID-19 vaccine, booster dose (MODERNA) Chilo Mckeon MD Work Phone: [facility] Work Phone: 03-03-2021 influenza, injectabl e, quadrivalent, contains preservative Chilo Mckeon MD Work Phone: [facility] 03-03-2021 influenza, injectabl e, quadrivalent, preservative free Dr. Chilo Mckeon Work Phone: [facility] 03-03-2021 influenza virus vacc ine, unspecified formulation Screen Wstr [facility] 06-24-2020 COVID-19 vaccine, fu ll dose (MODERNA) Chilo Mckeon MD Work Phone: [facility] 05-28-2020 COVID-19 vaccine, fu ll dose (MODERNA) Chilo Mckeon MD Work Phone: [facility] 01-14-2020 influenza, injectabl e, quadrivalent, preservative free Chilo Mckeon MD Work Phone: [facility] 01-08-2020 influenza, injectabl e, quadrivalent, preservative free Dr. Chilo Mckeon Work Phone: [facility] 01-17-2019 Influenza, injectabl e, Madin [place] Canine Kidney, preservative free, quadrivalent Chilo Mckeon MD Work Phone: [facility] Work Phone: 01-17-2019 influenza, injectabl e, quadrivalent, preservative free Dr. Chilo Mcekon Work Phone: [facility] 01-06-2018 influenza, injectabl e, quadrivalent, contains preservative Chilo Mckeon MD Work Phone: [facility] 01-06-2018 influenza, injectabl e, quadrivalent, preservative free Dr. Chilo Mckeon Work Phone: [facility] 11-14-2016 influenza, injectabl e, quadrivalent, preservative free Dr. Chilo Mckeon Work Phone: [facility] 11-14-2016 influenza, seasonal, injectable Chilo Mckeon MD Work Phone: [facility] Work Phone: 01-06-2016 influenza, injectabl e, quadrivalent, contains preservative Chilo Mckeon MD Work Phone: [facility] 01-06-2016 influenza, injectabl e, quadrivalent, preservative free Dr. Chilo Mckeon Work Phone: [facility] 08-31-2015 hepatitis A vaccine, adult dosage Chilo Mckeon MD Work Phone: [facility] 06-22-2014 hepatitis A vaccine, adult dosage Chilo Mckeon MD Work Phone: [facility] 06-22-2014 measles, mumps and rubella virus vaccine Chilo Mckeon MD Work Phone: [facility] 06-22-2014 tetanus toxoid, redu tsering diphtheria toxoid, and acellular pertussis vaccine, adsorbed Chilo Mckeon MD Work Phone: [facility] 06-22-2014 typhoid vaccine, parenteral, other than acetone-killed, dried Chilo Mckeon MD Work Phone: [facility] 06-22-[address] Chilo Mckeon Work Phone: [facility] 04-25-2012 pneumococcal polysaccharide vaccine, 23 valent Chilo Mckeon MD Work Phone: [facility] 12-18-2011 influenza virus vacc ine, unspecified formulation Chilo Mckeon MD Work Phone: [facility] 02-22-2009 novel influenza-H1N1 -09, preservative-free, injectable Dr. Chilo Mckeon Work Phone: [facility] 02-25-2006 tetanus and diphther ia toxoids, not adsorbed, for adult use Chilo Mckeon MD Work Phone: [facility] 08-19-2000 hepatitis B immune globulin Chilo Mckeon MD Work Phone: [facility] 03-29-2000 hepatitis B immune globulin Chilo Mckeon MD Work Phone: [facility] 01-22-2000 hepatitis B immune globulin Chilo Mckeon MD Work Phone: [facility] Payers Date Payer Category Payer Self-pay [id number] 2023 Medicare [id number] 2022 Medicare HUMANA MEDICARE HUMANA GOLD PLUS [id number] 2022-Present [phone] [place] [id number] [facility] [id number] 2022 Medicare (Managed Care) HUMANA G OLD PLUS [id number] 2018 Unknown MMO MMO [employer]PER[employer]US [id number] 2018-Present [phone] [address] [place] [address] PPO [id number] 2018 Unknown [id number] Unknown [facility] [id number] Unknown [id number] Unknown [id number] Unknown [id number] Unknown [id number] Unknown [id number] Unknown [id number] Social History Date Type Detail Facility Start: 10-22-2011 End: 10-02-2023 Tobacco smoking status CTIS Never smoked tobacco [facility] Start: 10-22-2011 Tobacco use and exposure Smoke less tobacco non-user [facility] Start: 06-13-2021 End: 10-16-2021 Alcohol intake Not Asked [facility] Start: 05-25-2019 End: 09-10-2022 History SDOH Alcohol Frequency 2 [facility] Start: 05-25-2019 End: 09-10-2022 History SDOH Alcohol Std Drinks 1 [facility] Start: 05-25-2019 End: 09-10-2022 History SDOH Social Connections Phone 5 [facility] Start: 05-25-2019 End: 09-10-2022 History SDOH Social Connections [facility] 3 [facility] Start: 05-25-2019 Education 18 [facility] Start: 1955 Sex Assigned At Female [facility] Start: 06-03-2021 End: 11-07-2021 Exposure to SARS-CoV-2 (event) Not sure [facility] Start: 09-25-2021 End: 05-29-2023 Tobacco smoking status CTIS Unknown if ever smoked [facility] Start: 09-11-2022 Alcohol intake Current drinke r of alcohol (finding) [facility] Start: 09-11-2022 Alcohol Comment Socially [place] [facility] Start: 09-10-2022 End: 09-11-2022 History of Social function [facility] Start: 09-10-2022 End: 09-11-2022 Social connection and isolation panel [facility] Do you belong to any clubs or organizations such as protestant groups, unions, fraternal or athletic groups, or school groups? Yes [facility] Are you now , , , , never or living with a partner? [facility] How often to you hav e a drink containing alcohol? Monthly or less [facility] How many standard dr inks containing alcohol do you have on a typical day? 1 or 2 [facility] How often do you hav e 6 or more drinks on 1 occasion? Never [facility] Start: 03-02-2012 How hard is it for y ou to pay for the very basics like food, housing, medical care, and heating Not hard at all [facility] Do you feel stress - tense, restless, nervous, or anxious, or unable to sleep at night because your mind is troubled all the time - these days [OSQ] Not at all [facility] (I/We) worried tr er (my/our) food would run out before (I/we) got money to buy more. Never true [facility] In the past 12 month s, was there a time when you were not able to pay the mortgage or rent on time? No [facility] Start: 10-28-2020 Gender identity Identifies as female gender (finding) [facility] Start: 06-09-2024 Sex Female (finding) [facility] Procedure Code Equipment Code Equipment Original Text Equipment Identifier Dates [id number] Start: 10-10-2020 End: 07-24-2021 Comment on above: Use as directed for insulin injections, 1 per day Inject 100 Each subc utaneously once daily. Use as directed for insulin injections, 1 per day Pen Needle, Diabetic (Bd Ultra-Fine Jaz Pen Needle) 32 gauge x 5/32 needle Start: 09-25-2021 Pen Needle, Diabetic (Bd Ultra-Fine Jaz Pen Needle) 32 gauge x 5/32 needle Start: 09-26-2021 Pen Needle, Diabetic (Bd Ultra-Fine Jaz Pen Needle) 32 gauge x 5/32 needle Start: 04-11-2022 Pen Needle, Diabetic (Bd Ultra-Fine Jaz Pen Needle) 32 gauge x 5/32 needle Start: 05-06-2023 Pen Needle, Diabetic (Bd Ultra-Fine Jaz Pen Needle) 32 gauge x 5/32 needle Start: 09-25-2021 End: 04-11-2022 Pen Needle, Diabetic (Bd Ultra-Fine Jaz Pen Needle) 32 gauge x 5/32 needle Start: 09-26-2021 End: 05-06-2023 Pen Needle, Diabetic (Bd Ultra-Fine Jaz Pen Needle) 32 gauge x 5/32 needle Start: 04-11-2022 Pen Needle, Diabetic (Bd Ultra-Fine Jaz Pen Needle) 32 gauge x 5/32 needle Start: 05-06-2023 Pen Needle, Diabetic (Bd Ultra-Fine Jaz Pen Needle) 32 gauge x 5/32 needle Start: 09-25-2021 End: 04-11-2022 Pen Needle, Diabetic (Bd Ultra-Fine Jaz Pen Needle) 32 gauge x 5/32 needle Start: 09-26-2021 End: 05-06-2023 Pen Needle, Diabetic (Bd Ultra-Fine Jaz Pen Needle) 32 gauge x 5/32 needle Start: 04-11-2022 Pen Needle, Diabetic (Bd Ultra-Fine Jaz Pen Needle) 32 gauge x 5/32 needle Start: 05-06-2023 Pen Needle, Diabetic (Bd Ultra-Fine Jaz Pen Needle) 32 gauge x 5/32 needle Start: 09-25-2021 End: 04-11-2022 Pen Needle, Diabetic (Bd Ultra-Fine Jaz Pen Needle) 32 gauge x 5/32 needle Start: 09-26-2021 End: 05-06-2023 Pen Needle, Diabetic (Bd Ultra-Fine Jaz Pen Needle) 32 gauge x 5/32 needle Start: 05-06-2023 Pen Needle, Diabetic (Bd Ultra-Fine Jaz Pen Needle) 32 gauge x 5/32 needle Start: 07-27-2024 Pen Needle, Diabetic (Bd Ultra-Fine Jaz Pen Needle) 32 gauge x 5/32 needle Start: 09-25-2021 End: 04-11-2022 Pen Needle, Diabetic (Bd Ultra-Fine Jaz Pen Needle) 32 gauge x 5/32 needle Start: 09-26-2021 End: 05-06-2023 Pen Needle, Diabetic (Bd Ultra-Fine Jaz Pen Needle) 32 gauge x 5/32 needle Start: 04-11-2022 End: 07-27-2024 Functional Status Date Assessment Result Facility 08-27-2014 Are you deaf, or do you have serious difficulty hearing No 08/27/2014 10:29 AM Aleida Lopez RN No [facility] 08-27-2014 Are you blind, or do you have serious difficulty seeing, even when wearing glasses No 08/27/2014 10:29 AM Aleida Lopez RN No [facility] 08-27-2014 Do you have serious difficulty walking or climbing stairs No 08/27/2014 10:29 AM Aleida Lopez RN No [facility] 08-27-2014 Do you have difficul ty dressing or bathing No 08/27/2014 10:29 AM Aleida Lopez RN No [facility] 08-27-2014 Because of a physica l, mental, or emotional condition, do you have difficulty doing errands alone such as visiting a physician's office or shopping No 08/27/2014 10:29 AM Aleida Lopez RN No [facility] Mental Status Date Assessment Result Facility 08-27-2014 Because of a physica l, mental, or emotional condition, do you have serious difficulty concentrating, remembering, or making decisions No 08/27/2014 10:29 AM Aleida Lopez RN No [facility] Clinical Notes 11-07-2012 to 11-25-2024 Sofia Thorne CPhT - 11/25/2024 11:15 AM Nidia Salter - 08/04/2024 9:41 AM Mart Silva MA - 06/08/2024 2:28 PM Mart Silva MA - 05/05/2024 1:41 PM EST Note Date & Type Note Facility 11-25-2024 Note HNO ID: [id number] Author: SOFIA THORNE CPhT Service: ? Author Type: Assistant General Manager Type: Progress Notes Filed: 11/25/2024 11:15 Note Text: Patient is identified through a medication adherence outreach initiative based on pharmacy claims data from: [email or web address] Medication Adherence Category: Hypertension First Review Attribution Status: Questionable attribution, Pt clearly transitioned care away from [facility] Sofia Thorne CPhT Value Based Care Pharmacy Team [facility] 11-25-2024 History of Present illness Narrative Patient is identified through a medication adherence outreach initiative based on pharmacy claims data from: [place] Medication Adherence Category: Hypertension First Review Attribution Status: Questionable attribution, Pt clearly transitioned care away from [facility] Sofia Thorne CPhT Value Based Care Pharmacy Team documented in this encounter [facility] 11-25-2024 Note Patient Outreach ([facility]) [facility] PATRICIA ([id number]) 1955 F Date Time Provider Department 11/25/24 HECTOR HERNANDEZ During your visit today, we recorded the following information about you: Sofia Thorne CPhT 11/25/2024 11:15 AM Signed Patient is identified through a medication adherence outreach initiative based on pharmacy claims data from: [employer] Medication Adherence Category: Hypertension First Review Attribution Status: Questionable attribution, Pt clearly transitioned care away from [facility] Sofia Thorne CPhT Value Based Care Pharmacy Team Allergies As of Date: 11/25/2024 Noted Allergy Reaction PENICILLINS 04/20/2011 2 - Rash SULFACETAMIDE 04/20/2011 2 - Rash Date Reviewed: 09/11/2022 Reviewed by: Astrid Wellington LPN - Fully Assessed Reason for Visit: Allied Health Visit [5] Cmt: Medication Adherence Outreach Prescriptions as of 11/25/2024 - fenofibrate nanocrystallized (TRICOR) 145 mg tablet take 1 tablet daily - tirzepatide (MOUNJARO) 5 mg/0.5 mL pen injector Inject 1 mL subcutaneously one time a week. - losartan (COZAAR) 100 mg tablet Take 1 tablet by mouth once daily. - citalopram (CELEXA) 20 mg tablet Take 1 tablet by mouth once daily. ID#[id number] - metoprolol succinate ER (TOPROL XL) 50 mg 24 hr tablet Take 1 tablet by mouth once daily. - metFORMIN ER (GLUCOPHAGE XR) 500 mg 24 hr tablet Take 2 tablets by mouth twice daily. ID#[id number] As directed - cholecalciferol, vitamin D3, (VITAMIN D3 ORAL) Take 5,000 Units by mouth once daily. Taking 3 capsules once daily - SEMGLEE,INSULIN GLARG-YFGN,PEN 100 unit/mL (3 mL) insulin pen Inject 36 Units subcutaneously. - rosuvastatin (CRESTOR) 5 mg tablet Take 1 tablet by mouth daily at bedtime. - Insulin [place], Disposable, (BD ULTRA-FINE JAZ PEN NEEDLE) 32 gauge x 5/32 Inject 100 Each subcutaneously once daily. Use as directed for insulin injections, 1 per day - CPAP For replacement of recalled CPAP (continue current settlings 10cm H2O): Continue Mask (per patient preference) optional chin strap (if indicated) , filters, tubing, humidifier and lifetime supplies as needed. (G47.33, Z99.89) GABBIE on CPAP - flash glucose scanning reader (FREESTYLE TYLER 2 READER) Check sugars as directed. (E11.65) Uncontrolled type 2 diabetes mellitus with hyperglycemia (HCC) - flash glucose sensor (FREESTYLE TYLER 2 SENSOR) kit 1 Each every 2 weeks. (E11.65) Uncontrolled type 2 diabetes mellitus with hyperglycemia (HCC) - COMPOUNDED PRESCRIPTION Allergy shots two shots all year long once a week. Problem List As Of Date 11/25/2024 Noted Resolved Uncontrolled type 2 diabetes mellitus with hype* 09/11/2022 HTN (hypertension), benign [I10] Hyperlipidemia [E78.5] Anxiety [F41.9] Vitamin D deficiency [E55.9] GABBIE on CPAP [G47.33] Type 2 diabetes mellitus without complication, *11/07/2012 Obesity (BMI 30.0-34.9) [E66.811] 01/22/2018 Encounter Status:Closed by SOFIA THORNE on 11/25/24 [facility] 08-10-2024 Note HNO ID: [id number] Author: ?, ?, ? Service: ? Author Type: ? Type: Progress Notes Filed: 08/10/2024 09:33 Note Text: POPULATION HEALTH NAVIGATION OUTREACH Action/FYI Patient responded to mychart that she has changed PCP to a non [facility] provider. Replied to mychart that her pcp was updated. Reason for Outreach Returned Call/MyChart Patient Contacted: Spoke to patient/parent/or legal guardian Patient identified by name and date of : Yes Returned call/MyChart actions taken: MyChart message sent PCP field updated Navigation Signature: Nidia Elmore August 10, 2024 9:29 AM [facility] 08-04-2024 Note HNO ID: [id number] Author: ?, ?, ? Service: ? Author Type: ? Type: Progress Notes Filed: 08/04/2024 09:47 Note Text: POPULATION HEALTH NAVIGATION OUTREACH Action/FYI Patient outreach for HCC gaps; JEANNIE, A1C, KED, BP, MAMMOGRAM, AWV. LVM and sent mychart to patient to close gaps. Patient has not seen pcp since 2022. Reason for Outreach Care Gap/HCC or Scheduling Wellness Visits Care Gaps due: Medicare Annual Wellness Visit Breast Cancer Screening Controlling Blood Pressure Diabetic Eye Exam HBA1C KED Patient Contacted: Unable or unnecessary to reach patient: Left message MyChart message sent HCC related Navigation Signature: Nidia Diaz Pss August 04, 2024 9:42 AM [facility] 08-04-2024 History of Present illness Narrative POPULATION HEALTH NAVIGATION OUTREACH Action/FYI Patient outreach for HCC gaps; JEANNIE, A1C, KED, BP, MAMMOGRAM, AWV. LVM and sent mychart to patient to close gaps. Patient has not seen pcp since 2022. Reason for Outreach Care Gap/HCC or Scheduling Wellness Visits Care Gaps due: Medicare Annual Wellness Visit Breast Cancer Screening Controlling Blood Pressure Diabetic Eye Exam HBA1C KED Patient Contacted: Unable or unnecessary to reach patient: Left message MyChart message sent HCC related Navigation Signature: Nidia Elmore August 04, 2024 9:42 AM documented in this encounter [facility] 08-04-2024 Note Patient Outreach (NE TNAV) CHASITY PATRICIA ([id number]) 1955 F Date Time Provider Department 08/04/24 CHILO MCKEON During your visit today, we recorded the following information about you: Nidia Dozier 08/04/2024 9:47 AM Signed POPULATION HEALTH NAVIGATION OUTREACH Action/I Patient outreach for HCC gaps; JEANNIE, A1C, KED, BP, MAMMOGRAM, AWV. LVM and sent mychart to patient to close gaps. Patient has not seen pcp since 2022. Reason for Outreach Care Gap/HCC or Scheduling Wellness Visits Care Gaps due: Medicare Annual Wellness Visit Breast Cancer Screening Controlling Blood Pressure Diabetic Eye Exam HBA1C KED Patient Contacted: Unable or unnecessary to reach patient: Left message MyChart message sent HCC related Navigation Signature: Nidia Elmore August 04, 2024 9:42 AM Nidia Dozier 08/10/2024 9:33 AM Signed POPULATION HEALTH NAVIGATION OUTREACH Action/FYI Patient responded to mychart that she has changed PCP to a non [facility] provider. Replied to mychart that her pcp was updated. Reason for Outreach Returned Call/MyChart Patient Contacted: Spoke to patient/parent/or legal guardian Patient identified by name and date of : Yes Returned call/MyChart actions taken: MyChart message sent PCP field updated Navigation Signature: Nidia Diaz Pss August 10, 2024 9:29 AM Allergies As of Date: 08/04/2024 Noted Allergy Reaction PENICILLINS 04/20/2011 2 - Rash SULFACETAMIDE 04/20/2011 2 - Rash Date Reviewed: 09/11/2022 Reviewed by: Astrid Wellington LPN - Fully Assessed Reason for Visit: Population Health Navigation Outreach [3910] Cmt: Carlos Moss Prescriptions as of 08/10/2024 - fenofibrate nanocrystallized (TRICOR) 145 mg tablet take 1 tablet daily - tirzepatide (MOUNJARO) 5 mg/0.5 mL pen injector Inject 1 mL subcutaneously one time a week. - losartan (COZAAR) 100 mg tablet Take 1 tablet by mouth once daily. - citalopram (CELEXA) 20 mg tablet Take 1 tablet by mouth once daily. ID#[id number] - metoprolol succinate ER (TOPROL XL) 50 mg 24 hr tablet Take 1 tablet by mouth once daily. - metFORMIN ER (GLUCOPHAGE XR) 500 mg 24 hr tablet Take 2 tablets by mouth twice daily. ID#[id number] As directed - cholecalciferol, vitamin D3, (VITAMIN D3 ORAL) Take 5,000 Units by mouth once daily. Taking 3 capsules once daily - SEMGLEE,INSULIN GLARG-YFGN,PEN 100 unit/mL (3 mL) insulin pen Inject 36 Units subcutaneously. - rosuvastatin (CRESTOR) 5 mg tablet Take 1 tablet by mouth daily at bedtime. - Insulin [place], Disposable, (BD ULTRA-FINE JAZ PEN NEEDLE) 32 gauge x 5/32 Inject 100 Each subcutaneously once daily. Use as directed for insulin injections, 1 per day - CPAP For replacement of recalled CPAP (continue current settlings 10cm H2O): Continue Mask (per patient preference) optional chin strap (if indicated) , filters, tubing, humidifier and lifetime supplies as needed. (G47.33, Z99.89) GABBIE on CPAP - flash glucose scanning reader (FREESTYLE TYLER 2 READER) Check sugars as directed. (E11.65) Uncontrolled type 2 diabetes mellitus with hyperglycemia (HCC) - flash glucose sensor (FREESTYLE TYLER 2 SENSOR) kit 1 Each every 2 weeks. (E11.65) Uncontrolled type 2 diabetes mellitus with hyperglycemia (HCC) - COMPOUNDED PRESCRIPTION Allergy shots two shots all year long once a week. Problem List As Of Date 08/04/2024 Noted Resolved Uncontrolled type 2 diabetes mellitus with hype* 09/11/2022 HTN (hypertension), benign [I10] Hyperlipidemia [E78.5] Anxiety [F41.9] Vitamin D deficiency [E55.9] GABBIE on CPAP [G47.33] Type 2 diabetes mellitus without complication, *11/07/2012 Obesity (BMI 30.0-34.9) [E66.811] 01/22/2018 Encounter Status:Closed by NIDIA DOZIER on 08/04/24 [facility] 06-08-2024 Note HNO ID: [id number] Author: MART HUNT MA Service: ? Author Type: Automotive Product Engineer Type: Progress Notes Filed: 06/08/2024 14:29 Note Text: POPULATION HEALTH NAVIGATION OUTREACH Action/ msg to schedule wellness, hcc gap closure, ked/ uacr and bmp and [id number] pended as I didn't speak to the patient , diabetic retinal eye exam, mammogram, bp to be addressed as not compliant not <130/80 Reason for Outreach Care Gap/HCC or Scheduling Wellness Visits Care Gaps due: Medicare Annual Wellness Visit Breast Cancer Screening Controlling Blood Pressure Diabetic Eye Exam HBA1C KED Patient Contacted: Unable or unnecessary to reach patient: Left message [employer] message sent HCC related Navigation Signature: Mart Hunt MA June 08, 2024 2:28 PM [facility] 06-08-2024 History of Present illness Narrative POPULATION HEALTH NAVIGATION OUTREACH Action/FYI msg to schedule wellness, hcc gap closure, ked/ uacr and bmp and [id number] pended as I didn't speak to the patient , diabetic retinal eye exam, mammogram, bp to be addressed as not compliant not <130/80 Reason for Outreach Care Gap/HCC or Scheduling Wellness Visits Care Gaps due: Medicare Annual Wellness Visit Breast Cancer Screening Controlling Blood Pressure Diabetic Eye Exam HBA1C KED Patient Contacted: Unable or unnecessary to reach patient: Left message [employer]ve message sent HCC related Navigation Signature: Mart Hunt MA June 08, 2024 2:28 PM documented in this encounter [facility] 06-08-2024 Note Patient Outreach (LEIGHA MORALES) CHASITY PATRICIA ([id number]) 1955 F Date Time Provider Department 06/08/24 MART HUNT During your visit today, we recorded the following information about you: Mart Hunt MA 06/08/2024 2:29 PM Signed POPULATION HEALTH NAVIGATION OUTREACH Action/FYI msg to schedule wellness, hcc gap closure, ked/ uacr and bmp and [id number] pended as I didn't speak to the patient , diabetic retinal eye exam, mammogram, bp to be addressed as not compliant not <130/80 Reason for Outreach Care Gap/HCC or Scheduling Wellness Visits Care Gaps due: Medicare Annual Wellness Visit Breast Cancer Screening Controlling Blood Pressure Diabetic Eye Exam HBA1C KED Patient Contacted: Unable or unnecessary to reach patient: Left message [employer] message sent HCC related Navigation Signature: Mart Hunt MA June 08, 2024 2:28 PM Allergies As of Date: 06/08/2024 Noted Allergy Reaction PENICILLINS 04/20/2011 2 - Rash SULFACETAMIDE 04/20/2011 2 - Rash Date Reviewed: 09/11/2022 Reviewed by: Astrid Wellington LPN - Fully Assessed Reason for Visit: Population Health Navigation Outreach [3910] Cmt: carlos moss Prescriptions as of 06/08/2024 - fenofibrate nanocrystallized (TRICOR) 145 mg tablet take 1 tablet daily - tirzepatide (MOUNJARO) 5 mg/0.5 mL pen injector Inject 1 mL subcutaneously one time a week. - losartan (COZAAR) 100 mg tablet Take 1 tablet by mouth once daily. - citalopram (CELEXA) 20 mg tablet Take 1 tablet by mouth once daily. ID#[id number] - metoprolol succinate ER (TOPROL XL) 50 mg 24 hr tablet Take 1 tablet by mouth once daily. - metFORMIN ER (GLUCOPHAGE XR) 500 mg 24 hr tablet Take 2 tablets by mouth twice daily. ID#[id number] As directed - cholecalciferol, vitamin D3, (VITAMIN D3 ORAL) Take 5,000 Units by mouth once daily. Taking 3 capsules once daily - SEMGLEE,INSULIN GLARG-YFGN,PEN 100 unit/mL (3 mL) insulin pen Inject 36 Units subcutaneously. - rosuvastatin (CRESTOR) 5 mg tablet Take 1 tablet by mouth daily at bedtime. - Insulin [place], Disposable, (BD ULTRA-FINE JAZ PEN NEEDLE) 32 gauge x /32 Inject 100 Each subcutaneously once daily. Use as directed for insulin injections, 1 per day - CPAP For replacement of recalled CPAP (continue current settlings 10cm H2O): Continue Mask (per patient preference) optional chin strap (if indicated) , filters, tubing, humidifier and lifetime supplies as needed. (G47.33, Z99.89) GABBIE on CPAP - flash glucose scanning reader (FREESTYLE TYLER 2 READER) Check sugars as directed. (E11.65) Uncontrolled type 2 diabetes mellitus with hyperglycemia (HCC) - flash glucose sensor (FREESTYLE TYLER 2 SENSOR) kit 1 Each every 2 weeks. (E11.65) Uncontrolled type 2 diabetes mellitus with hyperglycemia (HCC) - COMPOUNDED PRESCRIPTION Allergy shots two shots all year long once a week. Problem List As Of Date 06/08/2024 Noted Resolved Uncontrolled type 2 diabetes mellitus with hype* 09/11/2022 HTN (hypertension), benign [I10] Hyperlipidemia [E78.5] Anxiety [F41.9] Vitamin D deficiency [E55.9] GABBIE on CPAP [G47.33] Type 2 diabetes mellitus without complication, *11/07/2012 Obesity (BMI 30.0-34.9) [E66.811] 01/22/2018 Encounter Status:Closed by MART HUNT on 06/08/24 [facility] 05-05-2024 Note HNO ID: [id number] Author: MART HUNT MA Service: ? Author Type: Automotive Product Engineer Type: Progress Notes Filed: 05/05/2024 13:43 Note Text: POPULATION HEALTH NAVIGATION OUTREACH Action/I msg to schedule wellness, hcc gap closure, mammogram, bp to be addressed as not complaint not <130/80, diabetic retinal eye exam, hgba1c and ked/ uacr and bmp not pended as I didn't speak to the patient Reason for Outreach Care Gap/HCC or Scheduling Wellness Visits Care Gaps due: Medicare Annual Wellness Visit Breast Cancer Screening Controlling Blood Pressure Diabetic Eye Exam HBA1C KED Patient Contacted: Unable or unnecessary to reach patient: Left message DeepDyve message sent HCC related Navigation Signature: Mart Hunt MA May 05, 2024 1:41 PM [facility] 05-05-2024 History of Present illness Narrative POPULATION HEALTH NAVIGATION OUTREACH Action/I msg to schedule wellness, hcc gap closure, mammogram, bp to be addressed as not complaint not <130/80, diabetic retinal eye exam, hgba1c and ked/ uacr and bmp not pended as I didn't speak to the patient Reason for Outreach Care Gap/HCC or Scheduling Wellness Visits Care Gaps due: Medicare Annual Wellness Visit Breast Cancer Screening Controlling Blood Pressure Diabetic Eye Exam HBA1C KED Patient Contacted: Unable or unnecessary to reach patient: Left message DeepDyve message sent HCC related Navigation Signature: Mart Hunt MA May 05, 2024 1:41 PM documented in this encounter [facility] 05-05-2024 Note Patient Outreach (NE TNAV) CHASITY PATRICIA ([id number]) 1955 F Date Time Provider Department 05/05/24 MART HUNT During your visit today, we recorded the following information about you: Mart Hunt MA 05/05/2024 1:43 PM Signed POPULATION HEALTH NAVIGATION OUTREACH Action/FYI msg to schedule wellness, hcc gap closure, mammogram, bp to be addressed as not complaint not <130/80, diabetic retinal eye exam, hgba1c and ked/ uacr and bmp not pended as I didn't speak to the patient Reason for Outreach Care Gap/HCC or Scheduling Wellness Visits Care Gaps due: Medicare Annual Wellness Visit Breast Cancer Screening Controlling Blood Pressure Diabetic Eye Exam HBA1C KED Patient Contacted: Unable or unnecessary to reach patient: Left message [employer] message sent HCC related Navigation Signature: Mart Hunt MA May 05, 2024 1:41 PM Allergies As of Date: 05/05/2024 Noted Allergy Reaction PENICILLINS 04/20/2011 2 - Rash SULFACETAMIDE 04/20/2011 2 - Rash Date Reviewed: 09/11/2022 Reviewed by: Astrid Wellington LPN - Fully Assessed Reason for Visit: Population Health Navigation Outreach [3910] Cmt: carlos moss Prescriptions as of 05/05/2024 - fenofibrate nanocrystallized (TRICOR) 145 mg tablet take 1 tablet daily - tirzepatide (MOUNJARO) 5 mg/0.5 mL pen injector Inject 1 mL subcutaneously one time a week. - losartan (COZAAR) 100 mg tablet Take 1 tablet by mouth once daily. - citalopram (CELEXA) 20 mg tablet Take 1 tablet by mouth once daily. ID#[id number] - metoprolol succinate ER (TOPROL XL) 50 mg 24 hr tablet Take 1 tablet by mouth once daily. - metFORMIN ER (GLUCOPHAGE XR) 500 mg 24 hr tablet Take 2 tablets by mouth twice daily. ID#[id number] As directed - cholecalciferol, vitamin D3, (VITAMIN D3 ORAL) Take 5,000 Units by mouth once daily. Taking 3 capsules once daily - SEMGLEE,INSULIN GLARG-YFGN,PEN 100 unit/mL (3 mL) insulin pen Inject 36 Units subcutaneously. - rosuvastatin (CRESTOR) 5 mg tablet Take 1 tablet by mouth daily at bedtime. - Insulin [place], Disposable, (BD ULTRA-FINE JAZ PEN NEEDLE) 32 gauge x 5/32 Inject 100 Each subcutaneously once daily. Use as directed for insulin injections, 1 per day - CPAP For replacement of recalled CPAP (continue current settlings 10cm H2O): Continue Mask (per patient preference) optional chin strap (if indicated) , filters, tubing, humidifier and lifetime supplies as needed. (G47.33, Z99.89) GABBIE on CPAP - flash glucose scanning reader (FREESTYLE TYLER 2 READER) Check sugars as directed. (E11.65) Uncontrolled type 2 diabetes mellitus with hyperglycemia (HCC) - flash glucose sensor (FREESTYLE TYLER 2 SENSOR) kit 1 Each every 2 weeks. (E11.65) Uncontrolled type 2 diabetes mellitus with hyperglycemia (HCC) - COMPOUNDED PRESCRIPTION Allergy shots two shots all year long once a week. Problem List As Of Date 05/05/2024 Noted Resolved Uncontrolled type 2 diabetes mellitus with hype* 09/11/2022 HTN (hypertension), benign [I10] Hyperlipidemia [E78.5] Anxiety [F41.9] Vitamin D deficiency [E55.9] GABBIE on CPAP [G47.33] Type 2 diabetes mellitus without complication, *11/07/2012 Obesity (BMI 30.0-34.9) [E66.811] 01/22/2018 Encounter Status:Closed by MART HUNT on 05/05/24 [facility] 02-21-2024 Note HNO ID: [id number] Author: MART HUNT MA Service: ? Author Type: Automotive Product Engineer Type: Progress Notes Filed: 02/21/2024 14:43 Note Text: POPULATION HEALTH NAVIGATION OUTREACH Action/ Msg to schedule wellness, hcc gap closure, mammogram, bp to be addressed as not compliant not <130/80, diabetic retinal eye exam, influenza. HGAB1c and uacr and bmp not pended as I didn't speak to the patient Reason for Outreach Care Gap/HCC or Scheduling Wellness Visits Care Gaps due: Medicare Annual Wellness Visit Breast Cancer Screening Controlling Blood Pressure Diabetic Eye Exam HBA1C KED Flu Vaccine Patient Contacted: Unable or unnecessary to reach patient: Left message [employer] message sent HCC related Navigation Signature: Mart Hunt MA February 21, 2024 2:42 PM [facility] 02-21-2024 History of Present illness Narrative POPULATION HEALTH NAVIGATION OUTREACH Action/FYI Msg to schedule wellness, hcc gap closure, mammogram, bp to be addressed as not compliant not <130/80, diabetic retinal eye exam, influenza. HGAB1c and uacr and bmp not pended as I didn't speak to the patient Reason for Outreach Care Gap/HCC or Scheduling Wellness Visits Care Gaps due: Medicare Annual Wellness Visit Breast Cancer Screening Controlling Blood Pressure Diabetic Eye Exam HBA1C KED Flu Vaccine Patient Contacted: Unable or unnecessary to reach patient: Left message DeepDyve message sent HCC related Navigation Signature: Mart Hunt MA February 21, 2024 2:42 PM documented in this encounter [facility] 02-21-2024 Note Patient Outreach (LEIGHA LOWERYAV) CHASITY PATRICIA ([id number]) 1955 F Date Time Provider Department 02/21/24 MART HUNT During your visit today, we recorded the following information about you: Mart Hunt MA 02/21/2024 2:43 PM Signed POPULATION HEALTH NAVIGATION OUTREACH Action/FYI Msg to schedule wellness, hcc gap closure, mammogram, bp to be addressed as not compliant not <130/80, diabetic retinal eye exam, influenza. HGAB1c and uacr and bmp not pended as I didn't speak to the patient Reason for Outreach Care Gap/HCC or Scheduling Wellness Visits Care Gaps due: Medicare Annual Wellness Visit Breast Cancer Screening Controlling Blood Pressure Diabetic Eye Exam HBA1C KED Flu Vaccine Patient Contacted: Unable or unnecessary to reach patient: Left message [employer] message sent HCC related Navigation Signature: Mart Hunt MA February 21, 2024 2:42 PM Allergies As of Date: 02/21/2024 Noted Allergy Reaction PENICILLINS 04/20/2011 2 - Rash SULFACETAMIDE 04/20/2011 2 - Rash Date Reviewed: 09/11/2022 Reviewed by: Astrid Wellington LPN - Fully Assessed Reason for Visit: Population Health Navigation Outreach [3910] Cmt: Carlos nugent ajay Prescriptions as of 02/21/2024 - fenofibrate nanocrystallized (TRICOR) 145 mg tablet take 1 tablet daily - tirzepatide (MOUNJARO) 5 mg/0.5 mL pen injector Inject 1 mL subcutaneously one time a week. - losartan (COZAAR) 100 mg tablet Take 1 tablet by mouth once daily. - citalopram (CELEXA) 20 mg tablet Take 1 tablet by mouth once daily. ID#[id number] - metoprolol succinate ER (TOPROL XL) 50 mg 24 hr tablet Take 1 tablet by mouth once daily. - metFORMIN ER (GLUCOPHAGE XR) 500 mg 24 hr tablet Take 2 tablets by mouth twice daily. ID#[id number] As directed - cholecalciferol, vitamin D3, (VITAMIN D3 ORAL) Take 5,000 Units by mouth once daily. Taking 3 capsules once daily - SEMGLEE,INSULIN GLARG-YFGN,PEN 100 unit/mL (3 mL) insulin pen Inject 36 Units subcutaneously. - rosuvastatin (CRESTOR) 5 mg tablet Take 1 tablet by mouth daily at bedtime. - Insulin [place], Disposable, (BD ULTRA-FINE JAZ PEN NEEDLE) 32 gauge x 5/32 Inject 100 Each subcutaneously once daily. Use as directed for insulin injections, 1 per day - CPAP For replacement of recalled CPAP (continue current settlings 10cm H2O): Continue Mask (per patient preference) optional chin strap (if indicated) , filters, tubing, humidifier and lifetime supplies as needed. (G47.33, Z99.89) GABBIE on CPAP - flash glucose scanning reader (FREESTYLE TYLER 2 READER) Check sugars as directed. (E11.65) Uncontrolled type 2 diabetes mellitus with hyperglycemia (HCC) - flash glucose sensor (FREESTYLE TYLER 2 SENSOR) kit 1 Each every 2 weeks. (E11.65) Uncontrolled type 2 diabetes mellitus with hyperglycemia (HCC) - COMPOUNDED PRESCRIPTION Allergy shots two shots all year long once a week. Problem List As Of Date 02/21/2024 Noted Resolved Uncontrolled type 2 diabetes mellitus with hype* 09/11/2022 HTN (hypertension), benign [I10] Hyperlipidemia [E78.5] Anxiety [F41.9] Vitamin D deficiency [E55.9] GABBIE on CPAP [G47.33] Type 2 diabetes mellitus without complication, *11/07/2012 Obesity (BMI 30.0-34.9) [E66.811] 01/22/2018 Encounter Status:Closed by MART HUNT on 02/21/24 [facility] 02-19-2024 Evaluation note Diagnosis Onset Date Resolution Sleep apnea acute January 12:38pm Diabetes chronic February 19, 2024 12:38pm Hypertension chronic January 12:38pm Onychomycosis noneactive February 182023 12:38pm Seasonal allergies noneactive Novemb er 2023 12:38pm Annular psoriasis noneactive Novembe r 2023 12:38pm Carpal tunnel syndrome on both sides noneactive February 18 12:38pm Diabetes chronic May 27, 2024 1:38pm Hyperlipemia chronic May 1:38pm Hypertension chronic May 1:38pm Obesity chronic May 27, 2024 1:38pm [facility] Work Phone: 1(937) 903-906309-25-2024 NotePatient Outreach (INTMMN) CHASITY PATRICIA ([id number]) 1955 F Date Time Provider Department 12/25/23 CHILO MCKEON [facility] During your visit today, we recorded the following information about you: Allergies As of Date: 12/25/2023 Noted Allergy Reaction PENICILLINS 04/20/2011 2 - Rash SULFACETAMIDE 04/20/2011 2 - Rash Date Reviewed: 09/11/2022 Reviewed by: Astrid Wellington LPN - Fully Assessed Visit Diagnosis:Encounter for screening mammogram for breast cancer [Z12.31] Order(s):LEVON SCREENING W SCOTT [[id number]] Order #: [id number] FUTURE Prescriptions as of 12/30/2023 - fenofibrate nanocrystallized (TRICOR) 145 mg tablet take 1 tablet daily - tirzepatide (MOUNJARO) 5 mg/0.5 mL pen injector Inject 1 mL subcutaneously one time a week. - losartan (COZAAR) 100 mg tablet Take 1 tablet by mouth once daily. - citalopram (CELEXA) 20 mg tablet Take 1 tablet by mouth once daily. ID#[id number] - metoprolol succinate ER (TOPROL XL) 50 mg 24 hr tablet Take 1 tablet by mouth once daily. - metFORMIN ER (GLUCOPHAGE XR) 500 mg 24 hr tablet Take 2 tablets by mouth twice daily. ID#[id number] As directed - cholecalciferol, vitamin D3, (VITAMIN D3 ORAL) Take 5,000 Units by mouth once daily. Taking 3 capsules once daily - SEMGLEE,INSULIN GLARG-YFGN,PEN 100 unit/mL (3 mL) insulin pen Inject 36 Units subcutaneously. - rosuvastatin (CRESTOR) 5 mg tablet Take 1 tablet by mouth daily at bedtime. - Insulin [place], Disposable, (BD ULTRA-FINE JAZ PEN NEEDLE) 32 gauge x 5/32 Inject 100 Each subcutaneously once daily. Use as directed for insulin injections, 1 per day - CPAP For replacement of recalled CPAP (continue current settlings 10cm H2O): Continue Mask (per patient preference) optional chin strap (if indicated) , filters, tubing, humidifier and lifetime supplies as needed. (G47.33, Z99.89) GABBIE on CPAP - flash glucose scanning reader (FREESTYLE TYLER 2 READER) Check sugars as directed. (E11.65) Uncontrolled type 2 diabetes mellitus with hyperglycemia (HCC) - flash glucose sensor (FREESTYLE TYLER 2 SENSOR) kit 1 Each every 2 weeks. (E11.65) Uncontrolled type 2 diabetes mellitus with hyperglycemia (HCC) - COMPOUNDED PRESCRIPTION Allergy shots two shots all year long once a week. Problem List As Of Date 12/25/2023 Noted Resolved Uncontrolled type 2 diabetes mellitus with hype* 09/11/2022 HTN (hypertension), benign [I10] Hyperlipidemia [E78.5] Anxiety [F41.9] Vitamin D deficiency [E55.9] GABBIE on CPAP [G47.33] Type 2 diabetes mellitus without complication, *11/07/2012 Obesity (BMI 30.0-34.9) [E66.9] 01/22/2018 Encounter Status:Closed by INES HERNANDEZ on 12/30/23[facility] 10-07[facility]23 History of Present illness Narrative* Mart Hunt MA - 10/07/2023 2:36 PM EDT POPULATION HEALTH NAVIGATION OUTREACH Action/FYI msg to schedule wellness, hcc gap closure, mammogram, bp, diabetic retinal eye exam, hgba1c- not pended as I didn't speak to the patient Reason for Outreach Care Gap/HCC or Scheduling Wellness Visits Care Gaps due: Medicare Annual Wellness Visit Breast Cancer Screening Controlling Blood Pressure Diabetic Eye Exam HBA1C Patient Contacted: Unable or unnecessary to reach patient: Unable to leave message DeepDyve message sent HCC related Navigation Signature: Mart Hunt MA October 07, 2023 2:37 PM documented in this encounterA[facility] Miscellaneous Notes* Letter - Coordinator, Mammography - 11/13/2022 12:16 PM EDT November 14, 2022 PID: [id number] Chasity Patricia [address] [place] [address] Dear Ms. Patricia, We are pleased to inform you that the results of your recent breast imaging exam on 11/12/2022 are normal. Early detection of cancer is very important. We also understand recommendations regarding breast cancer screening are controversial. Please discuss with your primary care provider which strategy is best for you and whether a mammogram is right for you. Your imaging studies and report will be kept on file [facility] as part of your permanent medical record and are available for your continuing care. Thank you for allowing us to help in meeting your health care needs. Sincerely, Dr. Arenas Interpreting Radiologist [facility] (Normal over 40) documented in this encounterAultman Hospital08-14-2023 History of Present illness Narrative* Felicia Bae RT(Pranav) - 11/12/2022 2:10 PM EDT Radiology Service Progress Note PATIENT NAME: Chasity Patricia DATE OF SERVICE: November 12, 2022 TIME: 2:06 PM PATIENT IDENTITY VERIFICATION COMPLETED USING TWO (2) IDENTIFIERS: Name and Date of confirmedby patient verbally. FALL SCREENING: Has the patient had 2 falls in the last year or 1 fall with injury or currently using an Ambulatory Assistive Device (Walker, Cane, Wheelchair, Crutches, etc.)? No PATIENT GENDER DATA: Female. status: : No status: NO. PATIENT RELEVANT IMPLANT DATA REVIEWED: Not Applicable RADIOLOGY DEPARTMENT: Mammography PERIPHERAL IV DATA: Not applicable SIGNED BY: RT Joe(R) November 12, 2022 2:06 PM documented in this encounterAult[facility]08-14-2023 Miscellaneous Notes* Result Encounter Note - Peyton Martins APRN.CNS - 11/12/2022 2:10 PM EDT Negative, 1 year screening follow-up documented in this encounterA[facility]06-13-[facility]23 History of Past illness Narrative* Problem Noted Date Resolved Date Uncontrolled type 2 diabetes mellitus with hyper glycemia 09/11/2022 documented as of this encounter (statuses as of 09/11/2022) [facility] History of Past illness Narrative* Problem Noted Date Diagnosed Date Resolved Date Uncontrolled type 2 diabetes mellitus with hyperglycemia 09/11/2022 documented as of this encounter (statuses as of 11/15/2022) [facility] of Past illness Narrative* Problem Noted Date Diagnosed Date Resolved Date Uncontrolled type 2 diabetes mellitus with hyperglycemia 09/11/2022 documented as of this encounter (statuses as of 02/03/2023) [facility] History of Present illness Narrative* Chilo Mckeon MD - 09/11/2022 10:09 AM EDT This note was created using NoteWriter. Subjective Chasity Patricia is a 66 year old female. Patient presents with: F/U 4 month: Labs Prior SUBJECTIVE: Chasity Patricia is a 66 year old year old lady here today for follow up appointment for review of medical conditions. BPs 140s at home. has been up to 150s in offices. No symptoms of high BP. Eating better since has CGM. 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 Depression Screening 05/25/2019 10/07/2020 10/09/2021 09/11/2022 PHQ-2 Score 0 0 0 0 PHQ-9 Score - - 1 - Depression screening tool completed and reviewed. Based on score and interview, patient is not at risk for depression. Screening tool discussed with patient, and I recommended no further interventionat this time. PAST MEDICAL HISTORY Diagnosis Date Anxiety Hyperlipidemia Mental disorder Obesity GABBIE on CPAP Started on CPAP about 2005 or so Sciatica Left July 2014 addressed Snoring Type II or unspecified type diabetes mellitus without mention of complication, not stated as uncontrolled Unspecified essential hypertension Vitamin D deficiency Current Outpatient Medications Medication Sig tirzepatide (MOUNJARO) 5 mg/0.5 mL pen injector Inject 1 mL subcutaneously one time a week. losartan (COZAAR) 50 mg tablet Take 1 tablet by mouth once daily. citalopram (CELEXA) 20 mg tablet Take 1 tablet by mouth once daily. ID#[id number] metoprolol succinate ER (TOPROL XL) 50 mg 24 hr tablet Take 1 tablet by mouth once daily. metFORMIN ER (GLUCOPHAGE XR) 500 mg 24 hr tablet Take 2 tablets by mouth twice daily. ID#[id number] As directed fenofibrate nanocrystallized (TRICOR) 145 mg tablet Take 1 tablet by mouth once daily. ID#[id number] cholecalciferol, vitamin D3, (VITAMIN D3 ORAL) Take 5,000 Units by mouth once daily. Taking 3 capsules once daily SEMGLEE,INSULIN GLARG-YFGN,PEN 100 unit/mL (3 mL) insulin pen Inject 36 Units subcutaneously. rosuvastatin (CRESTOR) 5 mg tablet Take 1 tablet by mouth daily at bedtime. Insulin [place], Disposable, (BD ULTRA-FINE JAZ PEN NEEDLE) 32 gauge x Inject 100 Each subcutaneously once daily. Use as directed for insulin injections, 1 per day CPAP For replacement of recalled CPAP (continue current settlings 10cm H2O): Continue Mask (per patient preference) optional chin strap (if indicated) , filters, tubing, humidifier and lifetime supplies as needed. (G47.33, Z99.89) GABBIE on CPAP flash glucose scanning reader (FREESTYLE TYLER 2 READER) Check sugars as directed. (E11.65) Uncontrolled type 2 diabetes mellitus with hyperglycemia (HCC) flash glucose sensor (FREESTYLE TYLER 2 SENSOR) kit 1 Each every 2 weeks. (E11.65) Uncontrolled type 2 diabetes mellitus with hyperglycemia (HCC) COMPOUNDED PRESCRIPTION Allergy shots two shots all year long once a week. dulaglutide (TRULICITY) 1.5 mg/0.5 mL pen injector Inject 1.5 mg subcutaneously one time a week. ID#[id number] (Patient taking differently: Inject 3 mg subcutaneously one time a week. ID#[id number] ) No current facility-administered medications for this visit. Review of Systems Objective BP 152/82 Pulse 77 Temp 36.4 C (97.6 F) Resp 18 Wt 94.8 kg (209 lb) LMP 05/16/2011 [id number]% Last 5 Encounter Wt Readings: Date: Wt: 09/11/2022 94.8 kg (209 lb) 10/16/2021 91.6 kg (202 lb) 06/13/2021 98.4 kg (217 lb) 03/03/2021 98.4 kg (217 lb) 10/10/2020 98.9 kg (218 lb) No waist measurement recorded Estimated body mass index is 35.56 kg/m as calculated from the following: Height as of 04/20/11: 166.4 cm (5' 5.5). Weight as of 03/03/21: 98.4 kg (217 lb). Last 5 Encounter BP Readings: Date: BP: 09/11/2022 152/82 10/16/2021 138/80 06/13/2021 128/70 03/03/2021 134/64 10/10/2020 142/78 Physical Exam Constitutional: Appearance: Normal appearance. HENT: Head: Normocephalic. Eyes: Conjunctiva/sclera: Conjunctivae normal. Cardiovascular: Rate and Rhythm: Normal rate and regular rhythm. Heart sounds: Normal heart sounds. Pulmonary: Effort: Pulmonary effort is normal. Breath sounds: Normal breath sounds. Skin: General: Skin is warm and dry. Neurological: General: No focal deficit present. Mental Status: She is alert and oriented to person, place, and time. Psychiatric: Attention and Perception: Attention and perception normal. Mood and Affect: Mood and affect normal. Speech: Speech normal. Behavior: Behavior normal. Thought Content: Thought content normal. Cognition and Memory: Cognition normal. Judgment: Judgment normal. Component Latest Ref Rng & Units 06/12/2021 10/13/2021 02/13/2022 09/05/2022 WBC 3.70 - 11.00 k/uL 5.96 5.14 RBC 3.90 - 5.20 m/uL 4.63 4.21 Hemoglobin 11.5 - 15.5 g/dL 13.3 12.0 Hematocrit 36.0 - 46.0 % 40.7 38.9 MCV 80.0 - 100.0 fL 87.9 92.4 MCH 26.0 - 34.0 pg 28.7 28.5 MCHC 30.5 - 36.0 g/dL 32.7 30.8 RDW-CV 11.5 - 15.0 % 13.3 13.5 Platelet Count 150 - 400 k/uL 319 307 MPV 9.0 - 12.7 fL 10.6 10.8 Neut% % 59.7 Abs Neut (ANC) 1.45 - 7.50 k/uL 3.07 Lymph% % 30.9 Abs Lymph 1.00 - 4.00 k/uL 1.59 [place]% % 7.0 Abs [place] <0.87 k/uL 0.36 Eosin% % 1.6 Abs Eosin <0.46 k/uL 0.08 Baso% % 0.6 Abs Baso <0.11 k/uL 0.03 Immature Gran % % 0.2 IMMATURE GRANS (ABS) <0.10 k/uL <0.03 NRBC /100 WBC 0.0 Absolute nRBC <0.01 k/uL <0.01 <0.01 DTYPE Auto Protein, Total 6.3 - 8.0 g/dL 7.0 7.0 Albumin 3.9 - 4.9 g/dL 4.5 4.6 Calcium 8.5 - 10.2 mg/dL 9.9 10.0 9.6 Bilirubin, Total 0.2 - 1.3 mg/dL 0.4 0.2 Alkaline Phosphatase 34 - 123 U/L 51 29 (L) AST 13 - 35 U/L 18 22 ALT 7 - 38 U/L 16 16 Glucose 74 - 99 mg/dL 270 (H) 110 (H) 88 BUN 7 - 21 mg/dL 16 15 28 (H) Creatinine 0.58 - 0.96 mg/dL 0.65 0.74 0.85 Sodium 136 - 144 mmol/L 138 139 140 Potassium 3.7 - 5.1 mmol/L 4.3 4.5 4.5 Chloride 97 - 105 mmol/L 101 102 104 CO2 22 - 30 mmol/L 25 25 24 Anion Gap 9 - 18 mmol/L 12 12 12 eGFR >=60 mL/min/1.73m 99 91 77 Cholesterol, Total <200 mg/dL 154 124 Triglyceride <150 mg/dL 116 100 HDL Cholesterol >39 mg/dL 41 41 Non HDL Cholesterol <130 mg/dL 113 83 Fasting Time hrs 12 14 VLDL Cholesterol <30 mg/dL 23 20 TC:HDL Ratio <5.10 3.76 3.02 LDL Cholesterol <100 mg/dL 90 63 LDL:HDL Ratio <2.54 2.20 1.54 Creatinine, Ur Random (UCRR) 20.0 - 300.0 mg/dL 104.5 Albumin, Urine Random mg/L 53.3 Albumin/Creat Ratio <30 mg/g 51 (H) Hemoglobin A1C 4.3 - 5.6 % 11.4 (H) 9.2 (H) 8.5 (H) 7.3 (H) Estimated Average Glucose mg/dL 280 217 197 163 Vitamin D 25 Hydroxy 31.0 - 80.0 ng/mL 41.3 42.6 Assessment and Plan Encounter Diagnosis ICD-10-CM 1. Type 2 diabetes mellitus without complication, with long-term current use of insulin (HCC) E11.9HGB A1C Z79.4 COMP METABOLIC PANEL CBC ALBUMIN/CREAT RATIO RND UR 2. HTN (hypertension), benign I10 COMP METABOLIC PANEL CBC 3. Mixed hyperlipidemia E78.2 LIPID PANEL BASIC 4. GABBIE on CPAP G47.33 Z99.89 5. Vitamin D deficiency E55.9 VITAMIN D 25 HYDROXY 6. Obesity (BMI 30.0-34.9) E66.9 7. Encounter for screening mammogram for breast cancer Z12.31 [facility] SCREENING ASSESSMENT/PLAN: 1. Type 2 diabetes mellitus without complication, with long-term current use of insulin (HCC) - ICD9: 250.00, V58.67, ICD10: E11.9, Z79.4 (primary diagnosis) - Controlled - Continue current medications - Counseled on healthy diet and regular exercise 2. HTN (hypertension), benign - ICD9: 401.1, ICD10: I10 BP staying higher - Continue current medications - Increase losartan - Recommend home blood pressure monitoring, to bring results to next visit - Encouraged sodium restriction, DASH or Mediterranean diet - Recommend regular aerobic exercise 3. Mixed hyperlipidemia - ICD9: 272.2, ICD10: E78.2 - Controlled - Continue current medications - Counseled on healthy diet and regular exercise 4. GABBIE on CPAP - ICD9: 327.23, V46.8, ICD10: G47.33, Z99.89 Doing well on CPAP. Benefits from use 5. Vitamin D deficiency - ICD9: 268.9, ICD10: E55.9 Doing well on current supplement dose. 6. Obesity (BMI 30.0-34.9) - ICD9: 278.00, ICD10: E66.9 Weight decreasing - Behavioral intervention and - Pharmacological intervention Med for DM is helping with weight loss 7. Encounter for screening mammogram for breast cancer - ICD9: V76.12, ICD10: Z12.31 - Encouraged monthly BSE - Follow up for annual exam in one year. - [facility] SCREENING No problem-specific Assessment & Plan notes found for this encounter. documented in this encounterA[facility]05-30-2023 Miscellaneous Notes* Telephone Encounter - Alice Hodge LPN - 08/28/2022 8:59 AM EDT Patient has an appointment 09/11/2022. documented in this encounterA[facility]10-06-2022 Miscellaneous Notes* Telephone Encounter - Bebe Rhodes LPN - 01/04/2022 11:01 AM EDT [place] with [facility] called for recent labs done on pt. Identified pt with name and date of . FAX: [phone]. Faxed thru [facility]. Bebe Rhodes LPN documented in this encounterAultman Hospital08-09-2022 Miscellaneous Notes* Letter - Mammography Coordinator - 11/07/2021 11:28 AM EDT November 07, 2021 PID: [id number] Chasity Patricia [address] [id number] Dear Ms. Patricia, We are pleased to inform you that the results of your recent breast imaging exam on 11/07/2021 are normal. Early detection of cancer is very important. We also understand recommendations regarding breast cancer screening are controversial. Please discuss with your primary care provider which strategy is best for you and whether a mammogram is right for you. Your imaging studies and report will be [facility] as part of [facility] permanent medical record and are available for your continuing care. Thank you for allowing us to help in meeting your health care needs. Sincerely, Dr. Arenas Interpreting Radiologist [facility] (Normal over 40) documented in this encounterAultman Hospital08-09-2022 History of Present illness Narrative* RT Ernst(R) - 11/07/2021 10:50 AM EDT Radiology Service Progress Note PATIENT NAME: Chasity Patricia DATE OF SERVICE: November 07, 2021 TIME: 10:40 AM PATIENT IDENTITY VERIFICATION COMPLETED USING TWO (2) IDENTIFIERS: Name and Date of confirmedby patient verbally. FALL SCREENING: Has the patient had 2 falls in the last year or 1 fall with injury or currently using an Ambulatory Assistive Device (Walker, Cane, Wheelchair, Crutches, etc.)? No PATIENT GENDER DATA: Female. status: : No status: NO. PATIENT RELEVANT IMPLANT DATA REVIEWED: Not Applicable RADIOLOGY DEPARTMENT: Mammography PERIPHERAL IV DATA: Not applicable SIGNED BY: RT Ernst(R) November 07, 2021 10:40 AM documented in this encounterAultman Hospital07-19-2022 Miscellaneous Notes* Telephone Encounter - Kate Aguirre LPN - 10/17/2021 2:01 PM EDT Please update. Kate Aguirre LPN documented in this encounterAultman Hospital07-18-2022 Instructions* Patient Instructions* Peyton Martins APRN.CNS - 10/16/2021 11:32 AM EDT Check lab work in December mammogram documented in this encounterAultman Hospital07-18-2022 History of Present illness Narrative* Peyton Martins APRN.WRAPPER [employer]MER [employer] - 10/16/2021 10:40 AM EDT Subjective PNEUMOCOCCAL(2 - PCV) due on 04/25/2013 URINE ALBUMIN:CREATININE RATIO due on 06/28/2021 COVID-19 VACCINE(4 - Booster for Moderna series) due on 07/27/2021 DIABETIC FOOT EXAM due on 10/10/2021 MAMMOGRAM due on 11/03/2021 HPI Chasity Patricia is a 65 year old female. 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 Has had improvement of diabetes control. Nolonger using Lantus insulin, currently taking Semglee per Dr. Scherer. She is using CGM. Notes she has improved her diet and remained active. 15 pound weight loss since she was here last. DIABETES MELLITUS: . Without report of no excessive thirst or increased frequency of urination, chest pain or dyspnea , numbness, tingling or pain in extremities, new or unusual visual symptoms, low sugar/hypoglycemic reactions, weight loss/gain, lightheadedness/dizziness and bowel changes/loose stools. Patient's last HgA1C was Hemoglobin A1C (%) Date Value 10/13/2021 9.2 06/12/2021 11.4 02/27/2021 10.9 10/07/2020 10.2 ) Hyperlipidemia. Ms. Patricia reports doing well on current therapy. Her most recent lipid panels are: Cholesterol, Total (mg/dL) Date Value 06/12/2021 154 02/27/2021 146 10/07/2020 169 HDL Cholesterol (mg/dL) Date Value 06/12/2021 41 02/27/2021 43 10/07/2020 42 LDL Cholesterol (mg/dL) Date Value 06/12/2021 90 02/27/2021 77 10/07/2020 107 Triglyceride (mg/dL) Date Value 06/12/2021 116 02/27/2021 130 10/07/2020 101 HTN: Ms. Patricia indicates that she is without headache, chest pain, palpitations, dyspnea, peripheral edema, orthopnea, fatigue and PND. No adverse effects noted, consistently taking medication. Last 14 Encounter BP Readings: Date: BP: 10/16/2021 138/80 06/13/2021 128/70 03/03/2021 134/64 10/10/2020 142/78 01/27/2019 136/68 01/22/2019 132/78 10/09/2018 134/60 10/09/2018 142/78 09/17/2018 130/80 04/04/2018 136/80 01/06/2018 148/84 10/28/2017 133/74 09/24/2017 132/70 06/12/2017 136/84 Review of Systems Constitutional: Negative. Objective BP 138/80 Pulse 68 Resp 16 Wt 91.6 kg (202 lb) LMP 05/16/2011 SpO2 99% Physical Exam Vitals and nursing note reviewed. Constitutional: Appearance: Normal appearance. She is well-developed. HENT: Head: Normocephalic and atraumatic. Eyes: Conjunctiva/sclera: Conjunctivae normal. Neck: Thyroid: No thyromegaly. Vascular: Normal carotid pulses. No JVD. Cardiovascular: Rate and Rhythm: Normal rate and regular rhythm. Pulses: Carotid pulses are 2+ on the right side and 2+ on the left side. Radial pulses are 2+ on the right side and 2+ on the left side. Heart sounds: Normal heart sounds. Pulmonary: Effort: Pulmonary effort is normal. Breath sounds: Normal breath sounds. Abdominal: General: Bowel sounds are normal. Palpations: Abdomen is soft. Feet: Right foot: Protective Sensation: 10 sites tested. 10 sites sensed. Left foot: Protective Sensation: 10 sites tested. 10 sites sensed. Skin: General: Skin is warm and dry. Neurological: Mental Status: She is alert and oriented to person, place, and time. ALLERGIES Allergen Reactions Penicillins Rash Sulfacetamide Rash Current Outpatient Medications Medication Sig SEMGLEE,INSULIN GLARG-YFGN,PEN 100 unit/mL (3 mL) insulin pen Inject 20 Units subcutaneously. losartan (COZAAR) 50 mg tablet Take 1 tablet by mouth once daily. citalopram (CELEXA) 20 mg tablet Take 1 tablet by mouth once daily. ID#[id number] metoprolol succinate ER (TOPROL XL) 50 mg 24 hr tablet Take 1 tablet by mouth once daily. metFORMIN ER (GLUCOPHAGE XR) 500 mg 24 hr tablet Take 2 tablets by mouth twice daily. ID#[id number] As directed Insulin [place], Disposable, (BD ULTRA-FINE JAZ PEN NEEDLE) 32 gauge x 5/32 Inject 100 Each subcutaneously once daily. Use as directed for insulin injections, 1 per day CPAP For replacement of recalled CPAP (continue current settlings 10cm H2O): Continue Mask (per patient preference) optional chin strap (if indicated) , filters, tubing, humidifier and lifetime supplies as needed. (G47.33, Z99.89) GABBIE on CPAP fenofibrate nanocrystallized (TRICOR) 145 mg tablet Take 1 tablet by mouth once daily. ID#[id number] flash glucose scanning reader (FREESTYLE TYLER 2 READER) Check sugars as directed. (E11.65) Uncontrolled type 2 diabetes mellitus with hyperglycemia (HCC) flash glucose sensor (FREESTYLE TYLER 2 SENSOR) kit 1 Each every 2 weeks. (E11.65) Uncontrolled type 2 diabetes mellitus with hyperglycemia (HCC) rosuvastatin (CRESTOR) 5 mg tablet Take 1 tablet by mouth daily at bedtime. dulaglutide (TRULICITY) 1.5 mg/0.5 mL pen injector Inject 1.5 mg subcutaneously one time a week. ID#[id number] (Patient taking differently: Inject 3 mg subcutaneously one time a week. ID#[id number] ) COMPOUNDED PRESCRIPTION Allergy shots two shots all year long once a week. cefUROXime (CEFTIN) 500 mg tablet Take 1 tablet by mouth twice daily. Extend course if sinus infection not resolved with 10 days treatment (Patient not taking: Reported on 06/13/2021 ) Blood-Glucose Transmitter ([employer] G6 TRANSMITTER) kristal Use to check blood sugar 4 times daily. Replace every 90 days. insulin glargine (LANTUS SOLOSTAR U-100 INSULIN) 100 unit/mL (3 mL) Inject 12 Units subcutaneously every morning. Titrate up as directed (Patient taking differently: Inject 14 Units subcutaneously every morning. Titrate up as directed ) No current facility-administered medications for this visit. PAST MEDICAL HISTORY Diagnosis Date Anxiety Hyperlipidemia Mental disorder Obesity GABBIE on CPAP Started on CPAP about 2005 or so Sciatica Left July 2014 addressed Snoring Type II or unspecified type diabetes mellitus without mention of complication, not stated as uncontrolled Unspecified essential hypertension Vitamin D deficiency Social History Tobacco Use Smoking status: Never Smoker Smokeless tobacco: Never Used Substance Use Topics Alcohol use: Not on file Drug use: Not on file Component Latest Ref Rng & Units 02/27/2021 06/12/2021 10/13/2021 Protein, Total 6.3 - 8.0 g/dL 6.4 7.0 Albumin 3.9 - 4.9 g/dL 4.4 4.5 Calcium 8.5 - 10.2 mg/dL 9.4 9.9 10.0 Bilirubin, Total 0.2 - 1.3 mg/dL 0.2 0.4 Alkaline Phosphatase 34 - 123 U/L 44 51 AST 13 - 35 U/L 17 18 Glucose 74 - 99 mg/dL 230 (H) 270 (H) 110 (H) BUN 7 - 21 mg/dL 16 16 15 Creatinine 0.58 - 0.96 mg/dL 0.61 0.65 0.74 Sodium 136 - 144 mmol/L 137 138 139 Potassium 3.7 - 5.1 mmol/L 4.2 4.3 4.5 Chloride 97 - 105 mmol/L 101 101 102 CO2 22 - 30 mmol/L 24 25 25 Anion Gap 9 - 18 mmol/L 12 12 12 ALT 7 - 38 U/L 18 16 eGFR- >60 eGFR-All Other Races . >60 eGFR >=60 mL/min/1.73m 99 91 WBC 3.70 - 11.00 k/uL 5.13 5.96 RBC 3.90 - 5.20 m/uL 3.71 (L) 4.63 Hemoglobin 11.5 - 15.5 g/dL 11.1 (L) 13.3 Hematocrit 36.0 - 46.0 % 33.7 (L) 40.7 MCV 80.0 - 100.0 fL 90.8 87.9 MCH 26.0 - 34.0 pg 29.9 28.7 MCHC 30.5 - 36.0 g/dL 32.9 32.7 RDW-CV 11.5 - 15.0 % 13.2 13.3 Platelet Count 150 - 400 k/uL 292 319 MPV 9.0 - 12.7 fL 10.9 10.6 Absolute nRBC <0.01 k/uL <0.01 <0.01 Cholesterol, Total <200 mg/dL 146 154 Triglyceride <150 mg/dL 130 116 HDL Cholesterol >39 mg/dL 43 41 LDL Cholesterol <100 mg/dL 77 90 Non HDL Cholesterol <130 mg/dL 103 113 Fasting Time hrs 12 12 VLDL Cholesterol <30 mg/dL 26 23 TC:HDL Ratio <5.10 3.40 3.76 LDL:HDL Ratio <2.54 1.79 2.20 Hemoglobin A1C 4.3 - 5.6 % 10.9 (H) 11.4 (H) 9.2 (H) Estimated Average Glucose mg/dL 266 280 217 Vitamin D 25 Hydroxy 31.0 - 80.0 ng/mL 31.3 41.3 Assessment and Plan ASSESSMENT/PLAN: 1. Uncontrolled type 2 diabetes mellitus with hyperglycemia (HCC) - ICD9: 250.02, ICD10: E11.65 (primary diagnosis) Improved control, seeing Dr. 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 Continue current treatment unchanged. Check labs in 3 months before next visit - ALBUMIN/CREAT RATIO RND UR - HGB A1C - LIPID PANEL BASIC 2. Encounter for immunization - ICD9: V03.89, ICD10: Z23 - PNEUMOCOCCAL VACCINE (PREVNAR 20) - PFIZER-Embark[employer]TECH COVID-19 VACCINE, AGE 12+ YR ([place]LL TOP) 3. Encounter for screening mammogram for breast cancer - ICD9: V76.12, ICD10: Z12.31 Endorse routine self-exam - LEVON SCREENING 4. HTN (hypertension), benign - ICD9: 401.1, ICD10: I10 Blood pressure at upper limits of normal, continue unchanged for now, continue to monitor. With continued weight loss this may drop into normal range without medication adjustments 5. Mixed hyperlipidemia - ICD9: 272.2, ICD10: E78.2 Recommend a plant based diet such as Mediterranean diet with plenty of vegetables, fruits,whole grains, fish, chicken, turkey or plant proteins and routine exercise such as walking Peyton Martins APRN.CNS Medical Decision Making: Problems: Moderate: 2+ stable chronic illnesses Data: Unique test(s) ordered: 3+ Risk: Moderate: Drug management Medical Decision Making Level: 4 - Moderate documented in this encounter[facility]22 Miscellaneous Notes* Telephone Encounter - Melquiades Bruno Ma - 08/16/2021 9:46 AM EDT Notified via [employer]. * Telephone Encounter - Shabnam Curry APRN.CNP - 08/07/2021 7:29 AM EDT Fax endocrinology consult. I am not sure what she means about not being able to get pen needles, a prescription was sent on 07/24 Shabnam Curry APRN.CNP documented in this encounterA[facility]05-13-2022 Miscellaneous Notes* Telephone Encounter - Cecilia Strickland RN - 08/11/2021 9:34 AM EDT Patient has been identified by name and date of : Yes Pharmacy phones for refill(s): Pending Prescriptions Disp Refills LOSARTAN 50 MG TABLET 90 tablet 3 Sig: Take 1 tablet by mouth once daily. SHARATH: No CITALOPRAM 20 MG TABLET 90 tablet 3 Sig: Take 1 tablet by mouth once daily. ID#[id number] SHARATH: No METOPROLOL SUCCINATE ER 50 MG TABLET,EXTENDED RELEASE 24 HR 90 tablet 3 Sig: Take 1 tablet by mouth once daily. SHARATH: No METFORMIN ER 500 MG TABLET,EXTENDED RELEASE 24 HR 360 tablet 3 Sig: Take 2 tablets by mouth twice daily. ID#[id number] As directed SHARATH: No Date of last office visit with pcp: 06/13/2021 Future appt: 10/13/2021 Last 2 Encounter Wt Readings: Date: Wt: 06/13/2021 98.4 kg (217 lb) 03/03/2021 98.4 kg (217 lb) Previous labs/tests for medication: Diabetes: Hemoglobin A1C (%) Date Value 06/12/2021 11.4 02/27/2021 10.9 10/07/2020 10.2 Blood Pressure: BUN (mg/dL) Date Value 06/12/2021 16 02/27/2021 16 Sodium (mmol/L) Date Value 06/12/2021 138 02/27/2021 137 Last 1 Encounter BP Readings: Date: BP: 06/13/2021 128/70 Liver Function: ALT (U/L) Date Value 06/12/2021 16 02/27/2021 18 AST (U/L) Date Value 06/12/2021 18 02/27/2021 17 Please advise. Thank you. Cecilia Strickland RN documented in this encounterA[facility]04-25-2022 Miscellaneous Notes* Telephone Encounter - Elly Mckeon Ma - 07/24/2021 9:50 AM EDT Pended in refill encounter documented in this encounterAultman Hospital03-15-2022 History of Present illness Narrative* Chilo Mckeon MD - 06/13/2021 9:40 AM EDT This note was created using NoteWriter. Subjective Chasity Patricia is a 65 year old female. Patient presents with: Follow Up SUBJECTIVE: Chasity Patricia is a 65 year old year old lady here today for 4 month follow up appointment for review of medical conditions. Life has been hectic the past 2 months. Past 2 weeks better with diet since not doing the stress eating a much. PAST MEDICAL HISTORY Diagnosis Date Anxiety Hyperlipidemia Mental disorder Obesity GABBIE on CPAP Started on CPAP about 2005 or so Sciatica Left July 2014 addressed Snoring Type II or unspecified type diabetes mellitus without mention of complication, not stated as uncontrolled Unspecified essential hypertension Vitamin D deficiency Current Outpatient Medications Medication Sig CPAP For replacement of recalled CPAP (continue current settlings 10cm H2O): Continue Mask (per patient preference) optional chin strap (if indicated) , filters, tubing, humidifier and lifetime supplies as needed. (G47.33, Z99.89) GABBIE on CPAP fenofibrate nanocrystallized (TRICOR) 145 mg tablet Take 1 tablet by mouth once daily. ID#[id number] cefUROXime (CEFTIN) 500 mg tablet Take 1 tablet by mouth twice daily. Extend course if sinus infection not resolved with 10 days treatment flash glucose scanning reader (FREESTYLE TYLER 2 READER) Check sugars as directed. (E11.65) Uncontrolled type 2 diabetes mellitus with hyperglycemia (HCC) flash glucose sensor (FREESTYLE TYLER 2 SENSOR) kit 1 Each every 2 weeks. (E11.65) Uncontrolled type 2 diabetes mellitus with hyperglycemia (HCC) Blood-Glucose Meter,Continuous (DEXCOM ART CRITIC) misc Use to check blood sugar 4 times daily. Blood-Glucose Sensor (DEXCOM G6 SENSOR) kristal Use to check blood sugar 4 times daily. Replace every 10 days. Blood-Glucose Transmitter (DEXCOM G6 TRANSMITTER) kristal Use to check blood sugar 4 times daily. Replace every 90 days. rosuvastatin (CRESTOR) 5 mg tablet Take 1 tablet by mouth daily at bedtime. insulin glargine (LANTUS SOLOSTAR U-100 INSULIN) 100 unit/mL (3 mL) Inject 12 Units subcutaneously every morning. Titrate up as directed Insulin [place], Disposable, (BD ULTRA-FINE JAZ PEN NEEDLE) 32 gauge x Use as directed for insulin injections, 1 per day dulaglutide (TRULICITY) 1.5 mg/0.5 mL pen injector Inject 1.5 mg subcutaneously one time a week. ID#[id number] losartan (COZAAR) 50 mg tablet Take 1 tablet by mouth once daily. citalopram (CELEXA) 20 mg tablet Take 1 tablet by mouth once daily. ID#[id number] metoprolol succinate ER (TOPROL XL) 50 mg 24 hr tablet Take 1 tablet by mouth once daily. metFORMIN ER (GLUCOPHAGE XR) 500 mg 24 hr tablet Take 2 tablets by mouth twice daily. ID#[id number] As directed COMPOUNDED PRESCRIPTION Allergy shots two shots all year long once a week. No current facility-administered medications for this visit. Review of Systems Objective BP 138/72 Pulse 78 Wt 98.4 kg (217 lb) LMP 05/16/2011 Last 5 Encounter BP Readings: Date: BP: 06/13/2021 138/72 03/03/2021 134/64 10/10/2020 142/78 01/27/2019 136/68 01/22/2019 132/78 Last 5 Encounter Wt Readings: Date: Wt: 06/13/2021 98.4 kg (217 lb) 03/03/2021 98.4 kg (217 lb) 10/10/2020 98.9 kg (218 lb) 01/27/2019 91.6 kg (202 lb) 01/22/2019 91.7 kg (202 lb 3.2 oz) 06/13/21 0946 06/13/21 1032 BP: 138/72 128/70 Pulse: 78 Weight: 98.4 kg (217 lb) Physical Exam Constitutional: Appearance: Normal appearance. HENT: Head: Normocephalic. Eyes: Conjunctiva/sclera: Conjunctivae normal. Cardiovascular: Rate and Rhythm: Normal rate and regular rhythm. Heart sounds: Normal heart sounds. Pulmonary: Effort: Pulmonary effort is normal. Breath sounds: Normal breath sounds. Skin: General: Skin is warm and dry. Neurological: General: No focal deficit present. Mental Status: She is alert and oriented to person, place, and time. Psychiatric: Mood and Affect: Mood normal. Behavior: Behavior normal. Thought Content: Thought content normal. Judgment: Judgment normal. Component Latest Ref Rng & Units 10/07/2020 02/27/2021 06/12/2021 Protein, Total 6.3 - 8.0 g/dL 6.5 6.4 7.0 Albumin 3.9 - 4.9 g/dL 4.2 4.4 4.5 Calcium 8.5 - 10.2 mg/dL 9.4 9.4 9.9 Bilirubin, Total 0.2 - 1.3 mg/dL 0.2 0.2 0.4 Alkaline Phosphatase 34 - 123 U/L 43 44 51 AST 13 - 35 U/L 18 17 18 Glucose 74 - 99 mg/dL 175 (H) 230 (H) 270 (H) BUN 7 - 21 mg/dL 15 16 16 Creatinine 0.58 - 0.96 mg/dL 0.62 0.61 0.65 Sodium 136 - 144 mmol/L 140 137 138 Potassium 3.7 - 5.1 mmol/L 4.1 4.2 4.3 Chloride 97 - 105 mmol/L 104 101 101 CO2 22 - 30 mmol/L 24 24 25 Anion Gap 9 - 18 mmol/L 12 12 12 ALT 7 - 38 U/L 15 18 16 eGFR- >60 >60 eGFR-All Other Races . >60 >60 eGFR >=60 mL/min/1.73m 99 WBC 3.70 - 11.00 k/uL 4.52 5.13 5.96 RBC 3.90 - 5.20 m/uL 4.01 3.71 (L) 4.63 Hemoglobin 11.5 - 15.5 g/dL 11.5 11.1 (L) 13.3 Hematocrit 36.0 - 46.0 % 35.9 (L) 33.7 (L) 40.7 MCV 80.0 - 100.0 fL 89.5 90.8 87.9 MCH 26.0 - 34.0 pg 28.7 29.9 28.7 MCHC 30.5 - 36.0 g/dL 32.0 32.9 32.7 RDW-CV 11.5 - 15.0 % 13.3 13.2 13.3 Platelet Count 150 - 400 k/uL 265 292 319 MPV 9.0 - 12.7 fL 11.2 10.9 10.6 Absolute nRBC <0.01 k/uL <0.01 <0.01 <0.01 Cholesterol, Total <200 mg/dL 169 146 154 Triglyceride <150 mg/dL 101 130 116 HDL Cholesterol >39 mg/dL 42 43 41 LDL Cholesterol <100 mg/dL 107 (H) 77 90 Non HDL Cholesterol <130 mg/dL 127 103 113 Fasting Time hrs 12 12 12 VLDL Cholesterol <30 mg/dL 20 26 23 TC:HDL Ratio <5.10 4.02 3.40 3.76 LDL:HDL Ratio <2.54 2.55 (H) 1.79 2.20 Hemoglobin A1C 4.3 - 5.6 % 10.2 (H) 10.9 (H) 11.4 Estimated Average Glucose mg/dL 246 266 Hemoglobin A1C (%) Date Value 06/12/2021 11.4 02/27/2021 10.9 10/07/2020 10.2 06/28/2020 10.9 02/13/2020 9.3 10/05/2019 9.4 Assessment and Plan ASSESSMENT/PLAN: 1. Uncontrolled type 2 diabetes mellitus with hyperglycemia (HCC) - ICD9: 250.02, ICD10: E11.65 (primary diagnosis) poorly controlled worsening control - Continue current medications - Encouraged regular aerobic exercise and weight loss - HGB A1C - BASIC METABOLIC PNL 2. HTN (hypertension), benign - ICD9: 401.1, ICD10: I10 - good control - Continue current medication(s) - Recommended regular aerobic exercise. - Recommend home blood pressure monitoring, to bring results in on next visit - Goal of BP <130/80 3. Mixed hyperlipidemia - ICD9: 272.2, ICD10: E78.2 - good control - Continue current medication. - Encouraged following a low fat, low cholesterol diet. - Encouraged following a low carbohydrate, healthy oil intake diet. 4. Vitamin D deficiency - ICD9: 268.9, ICD10: E55.9 Adjust replacement as indicated 5. Class 2 obesity due to excess calories with body mass index (BMI) of 35.0 to 35.9 in adult, unspecified whether serious comorbidity present - ICD9: 278.00, V85.35, ICD10: E66.09, Z68.35 Stable to slowly coming down - Behavioral intervention Chilo Mckeon MD documented in this encounterA[facility]08-09-2013 History of Past illness Narrative* Problem Noted Date Resolved Date Type II or unspecified type diabetes mellitus without mention of complication, uncontrolled 11/07/2012 09/24/2017 documented as of this encounter (statuses as of 07/24/2021) [facility] Narrative* Problem Noted Date Resolved Date Type II or unspecified type diabetes mellitus without mention of complication, uncontrolled 11/07/2012 09/24/2017 documented as of this encounter (statuses as of 08/11/2021) [facility] Narrative* Problem Noted Date Resolved Date Type II or unspecified type diabetes mellitus without mention of complication, uncontrolled 11/07/2012 09/24/2017 documented as of this encounter (statuses as of 08/16/2021) [facility] Narrative* Problem Noted Date Resolved Date Type II or unspecified type diabetes mellitus without mention of complication, uncontrolled 11/07/2012 09/24/2017 documented as of this encounter (statuses as of 09/05/2021) [facility] Narrative* Problem Noted Date Resolved Date Type II or unspecified type diabetes mellitus without mention of complication, uncontrolled 11/07/2012 09/24/2017 documented as of this encounter (statuses as of 10/16/2021) [facility] Narrative* Problem Noted Date Resolved Date Type II or unspecified type diabetes mellitus without mention of complication, uncontrolled 11/07/2012 09/24/2017 documented as of this encounter (statuses as of 10/18/2021) [facility] Narrative* Problem Noted Date Resolved Date Type II or unspecified type diabetes mellitus without mention of complication, uncontrolled 11/07/2012 09/24/2017 documented as of this encounter (statuses as of 11/08/2021) [facility] Narrative* Problem Noted Date Resolved Date Type II or unspecified type diabetes mellitus without mention of complication, uncontrolled 11/07/2012 09/24/2017 documented as of this encounter (statuses as of 11/09/2021) [facility] Narrative* Problem Noted Date Resolved Date Type II or unspecified type diabetes mellitus without mention of complication, uncontrolled 11/07/2012 09/24/2017 documented as of this encounter (statuses as of 01/04/2022) [facility] Narrative* Problem Noted Date Resolved Date Type II or unspecified type diabetes mellitus without mention of complication, uncontrolled 11/07/2012 09/24/2017 documented as of this encounter (statuses as of 09/05/2022) [facility] note* Diagnosis Uncontrolled type 2 diabetes mellitus with hyperglycemia (HCC)- Primary documented in this encounter [facility] note* Diagnosis Uncontrolled type 2 diabetes mellitus with hyperglycemia (HCC)- Primary HTN (hypertension), benign Essential hypertension, benign Mixed hyperlipidemia Vitamin D deficiency Unspecified vitamin D deficiency Class 2 obesity due to excess calories with body mass index (BMI) of 35.0 to 35.9 in adult, unspecified whether serious comorbidity present documented in this encounter [facility] note* Diagnosis Uncontrolled type 2 diabetes mellitus with hyperglycemia (HCC)- Primary Encounter for immunization Need for other specified prophylactic vaccination against single bacterial disease Encounter for screening mammogram for breast cancer HTN (hypertension), benign Essential hypertension, benign Mixed hyperlipidemia documented in this encounter [facility] note* Diagnosis Encounter for screening mammogram for breast cancer documented in this encounter [facility] note* Diagnosis Onset Date Resolution Status Obesity acute Hypertension [facility] Work Phone: Evaluation note* Diagnosis Mixed hyperlipidemia- Primary Vitamin D deficiency Unspecified vitamin D deficiency Uncontrolled type 2 diabetes mellitus with hyperglycemia (HCC) Encounter for therapeutic drug monitoring documented in this encounter [facility] note* Diagnosis Type 2 diabetes mellitus without complication, with long-term current use of insulin (HCC)- Primary HTN (hypertension), benign Essential hypertension, benign Mixed hyperlipidemia GABBIE on CPAP Obstructive sleep apnea (adult) (pediatric) Vitamin D deficiency Unspecified vitamin D deficiency Obesity (BMI 30.0-34.9) Obesity, unspecified Encounter for screening mammogram for breast cancer documented in this encounter [facility] note* Diagnosis Encounter for screening mammogram for breast cancer documented in this encounter [facility] note* Diagnosis Onset Date Resolution Status Sleep apnea acute Diabetes chronic Hypertension chronic Immunization due noneactive Establishing care with new doctor, encounter for noneactive Seasonal allergies noneactiv e Annular psoriasis noneactive Carpal tunnel syndrome on both sides noneactive Diabetes chronic Hypertension chronic Obesity [facility] Work Phone: Evaluation note* Diagnosis Encounter for screening mammogram for breast cancer [facility] noteNo assessment information availableBlFranciscan Health [facility] Work Phone: [facility] for referral (narrative)* Diagnostic Procedure Only (Routine) - Authorized Specialty Diagnoses / Procedures Referred By Contac t Referred To Contact [facility] Diagnoses Encounter for screening mammogram for breast cancer Procedures LEVON SCREENING SCREENING MAMMOGRAPHY BI 2-VIEW BREAST INC CAD MartinsPeyton, SUPERVISOR OF RESEARCH.WRAPPER STEMMER HAND [address] [place] [address] [facility] [address] [place] [address] Referral ID Status Reason Start Date Expiration Date Visits Requested Visits Authorized [id number] Authorized Auto-Generat ed Referral 10/16/2021 11/15/2022 1 1 [facility] for referral (narrative)* Diagnostic Procedure Only (Routine) - Closed Specialty Diagnoses / Procedures Referred By Contac t Referred To Contact [facility] Diagnoses Encounter for screening mammogram for breast cancer Procedures LEVON SCREENING SCREENING MAMMOGRAPHY BI 2-VIEW BREAST INC CAD Peyton Martins, SUPERVISOR OF RESEARCH.WRAPPER STEMMER HAND [address] [place] [address] [facility] [address] [place] [address] Referral ID Status Reason Start Date Expiration Date V isits Requested Visits Authorized [id number] Closed Auto-Generate d Referral 10/16/2021 11/15/2022 1 1 [facility] for referral (narrative)* Diagnostic Procedure Only (Routine) - Authorized Specialty Diagnoses / Procedures Referred By Contac t Referred To Contact [facility] Diagnoses Encounter for screening mammogram for breast cancer Procedures LEVON SCREENING SCREENING MAMMOGRAPHY BI 2-VIEW BREAST INC CAD Chilo Mckeon MD [address] [place] [address] [facility] [address] [place] [address] Referral ID Status Reason Start Date Expiration Date Visits Requested Visits Authorized [id number] Authorized Auto-Generat ed Referral 09/11/2022 10/11/2023 1 1 [facility] for referral (narrative)* Diagnostic Procedure Only (Routine) - Closed Specialty Diagnoses / Procedures Referred By Suzan dove Referred To Contact [facility] Diagnoses Encounter for screening mammogram for breast cancer Procedures LEVON SCREENING SCREENING MAMMOGRAPHY BI 2-VIEW BREAST INC Chilo Sow MD [address] [place] [address] [facility] [address] [place] [address] Referral ID Status Reason Start Date Expiration Date V isits Requested Visits Authorized [id number] Closed Auto-Generate d Referral 09/11/2022 10/11/2023 1 1 [facility] for referral (narrative)* Diagnostic Procedure Only (Routine) - New Request Specialty Diagnoses / Procedures Referred By Suzan dove Referred To Contact [facility] Diagnoses Encounter for screening mammogram for breast cancer Procedures LEVON SCREENING W SCOTT SCREENING DIGITAL BREAST TOMOSYNTHESIS BI SCREENING MAMMOGRAPHY BI 2-VIEW BREAST INC Chilo Sow MD [address] [place] [address] [facility] [address] [place] [address] Referral ID Status Reason Start Date Expiration Date Visits Requested Visits Authorized [id number] New Request Auto-Generat ed Referral 12/25/2023 01/23/2025 1 1 [facility] for referral (narrative)No reason for referral information availableWCleveland Clinic [facility] Work Phone: Reason for visit Narrative* Diagnostic Procedure Only (Routine) - Closed Specialty Diagnoses / Procedures Referred By Suzan dove Referred To Contact [facility] Diagnoses Encounter for screening mammogram for breast cancer Procedures LEVON SCREENING SCREENING MAMMOGRAPHY BI 2-VIEW BREAST INC Peyton Varela APRN.WRAPPER STEMMER HAND [address] [place] [address] [facility] [address] [place] [address] Referral ID Status Reason Start Date Expiration Date V isits Requested Visits Authorized [id number] Closed Auto-Generate d Referral 10/16/2021 11/15/2022 1 1 [facility]* Diagnostic Procedure Only (Routine) - Closed Specialty Diagnoses / Procedures Referred By Luluac t Referred To Contact [facility] Diagnoses Encounter for screening mammogram for breast cancer Procedures LEVON SCREENING SCREENING MAMMOGRAPHY BI 2-VIEW BREAST INC CAD Chilo Mckeon MD [address] [place] [address] [facility] [address] [place] [address] Referral ID Status Reason Start Date Expiration Date V isits Requested Visits Authorized [id number] Closed Auto-Generate d Referral 09/11/2022 10/11/2023 1 1 [facility] Advance Directives No Advanced Directives Records FoundDocuments on File Type Date Recorded 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 Advance Directive(s) Advance Directive(s) 10/16/2018 9:14 AM Documents on File Type Date Recorded 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 Advance Directive(s) Advance Directive(s) 10/16/2018 9:14 AM Advance Directive Response Recorded Date/ Time Living Will Yes August 23, 2018 4 :22pm Power of Co Supervisor [employer]ounds [employer] Landscape Yes August 23, 2018 4:22pm Advance Directive Response Recorded Date/ Time Living Will Yes August 23, 2018 3 :22pm Power of Co Supervisor [employer]ounds [employer] Landscape Yes August 23, 2018 3:22pm Reason for Referral Specialty Diagnoses / Procedures Referred By Suzan t Referred To Contact Endocrinology Diagnoses Uncontrolled type 2 diabetes mellitus with hyperglycemia (HCC) Procedures CONSULT TO ENDOCRINOLOGY OFFICE/OUTPATIENT NEW HIGH MDM 60-74 MINUTES Chilo Mckeon MD [address] [place] [address] Referral ID Status Reason Start Date Expiration Date Visits Requested Visits Authorized [id number] Authorized PCP Requested Referral 08/02/2021 08/02/2022 1 1 Chief Complaint and Reason for Visit 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, 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, 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 Reason for Visit Obesity Hypertension Chief Complaint EST NEW PT - PPW GIV EN 5 M FU E ORDERS Reason for Visit Sleep apnea Diabetes Hypertension Immunization due Establishing care with new doctor, encounter for Seasonal allergies Annular psoriasis Carpal tunnel syndrome on both sides Diabetes Hypertension Obesity Chief Complaint Admit Date 6 M FU February 19, 2024 12:38pm SCREENING May 12, 2024 6:51am ABNORMAL LEVON LT BREAST May 21 10:33am 6 M FU May 27, 2024 1:38pm Reason for Visit Admit Date Sleep apnea February 19, 2024 12:38pm Diabetes February 19, 2024 12:38pm Hypertension February 19, 2024 12:38pm Onychomycosis February 19, 2024 12:38pm Seasonal allergies February 19, 2024 12:38pm Annular psoriasis February 19, 2024 12:38pm Carpal tunnel syndrome on both sides Nov 2023 12:38pm Diabetes May 27, 2024 1:38pm Hyperlipemia May 27, 2024 1:38pm Hypertension May 27, 2024 1:38pm Obesity May 27, 2024 1:38pm Chief Complaint Admit Date 6 M FU November 25, 2024 1: 34pm Family History No Family History Records Found Relationship Condition Age at Onset Recorded Date/T linda Not Specified Diabetes mellitus Unknown Hypertension Unknown Relationship Condition Age at Onset Recorded Date/T linda father Alcoholism Unknown Malignant neoplasm Unknown Alcoholic cirrhosis Unknown brother Anxiety Unknown grandmother Diabetes mellitus Unknown Hypertension Unknown mother Diabetes mellitus Unknown Alzheimer's dementia Unknown brother Malignant neoplasm Unknown Summary Purpose Additional Source Comments Source Comments (unrecognize d section and content) In the event this informatio n is protected by the Federal Confidentiality of Alcohol and Drug Abuse Patient Records regulations: The Federal rules restrict any use of the information to criminally investigate or prosecute any alcohol or drug abuse patient.[facility] HospitalIn the event this information is protected by the Federal Confidentiality of Alcohol and Drug Abuse Patient Records regulations: The Federal rules restrict any use of the information to criminally investigate or prosecute any alcohol or drug abuse patient.[facility] HospitalIn the event this information is protected by the Federal Confidentiality of Alcohol and Drug Abuse Patient Records regulations: The Federal rules restrict any use of the information to criminally investigate or prosecute any alcohol or drug abuse patient.[facility] HospitalIn the event this information is protected by the Federal Confidentiality of Alcohol and Drug Abuse Patient Records regulations: The Federal rules restrict any use of the information to criminally investigate or prosecute any alcohol or drug abuse patient.[facility] HospitalIn the event this information is protected by the Federal Confidentiality of Alcohol and Drug Abuse Patient Records regulations: The Federal rules restrict any use of the information to criminally investigate or prosecute any alcohol or drug abuse patient.[facility] HospitalIn the event this information is protected by the Federal Confidentiality of Alcohol and Drug Abuse Patient Records regulations: The Federal rules restrict any use of the information to criminally investigate or prosecute any alcohol or drug abuse patient.[facility] HospitalIn the event this information is protected by the Federal Confidentiality of Alcohol and Drug Abuse Patient Records regulations: The Federal rules restrict any use of the information to criminally investigate or prosecute any alcohol or drug abuse patient.[facility] HospitalIn the event this information is protected by the Federal Confidentiality of Alcohol and Drug Abuse Patient Records regulations: The Federal rules restrict any use of the information to criminally investigate or prosecute any alcohol or drug abuse patient.[facility] HospitalIn the event this information is protected by the Federal Confidentiality of Alcohol and Drug Abuse Patient Records regulations: The Federal rules restrict any use of the information to criminally investigate or prosecute any alcohol or drug abuse patient.[facility] HospitalIn the event this information is protected by the Federal Confidentiality of Alcohol and Drug Abuse Patient Records regulations: The Federal rules restrict any use of the information to criminally investigate or prosecute any alcohol or drug abuse patient.[facility] HospitalIn the event this information is protected by the Federal Confidentiality of Alcohol and Drug Abuse Patient Records regulations: The Federal rules restrict any use of the information to criminally investigate or prosecute any alcohol or drug abuse patient.[facility] HospitalIn the event this information is protected by the Federal Confidentiality of Alcohol and Drug Abuse Patient Records regulations: The Federal rules restrict any use of the information to criminally investigate or prosecute any alcohol or drug abuse patient.[facility] HospitalIn the event this information is protected by the Federal Confidentiality of Alcohol and Drug Abuse Patient Records regulations: The Federal rules restrict any use of the information to criminally investigate or prosecute any alcohol or drug abuse patient.[facility] HospitalIn the event this information is protected by the Federal Confidentiality of Alcohol and Drug Abuse Patient Records regulations: The Federal rules restrict any use of the information to criminally investigate or prosecute any alcohol or drug abuse patient.[facility] HospitalIn the event this information is protected by the Federal Confidentiality of Alcohol and Drug Abuse Patient Records regulations: The Federal rules restrict any use of the information to criminally investigate or prosecute any alcohol or drug abuse patient.[facility] HospitalIn the event this information is protected by the Federal Confidentiality of Alcohol and Drug Abuse Patient Records regulations: The Federal rules restrict any use of the information to criminally investigate or prosecute any alcohol or drug abuse patient.[facility] HospitalIn the event this information is protected by the Federal Confidentiality of Alcohol and Drug Abuse Patient Records regulations: The Federal rules restrict any use of the information to criminally investigate or prosecute any alcohol or drug abuse patient.[facility] HospitalIn the event this information is protected by the Federal Confidentiality of Alcohol and Drug Abuse Patient Records regulations: The Federal rules restrict any use of the information to criminally investigate or prosecute any alcohol or drug abuse patient.[facility] HospitalIn the event this information is protected by the Federal Confidentiality of Alcohol and Drug Abuse Patient Records regulations: The Federal rules restrict any use of the information to criminally investigate or prosecute any alcohol or drug abuse patient.[facility] HospitalIn the event this information is protected by the Federal Confidentiality of Alcohol and Drug Abuse Patient Records regulations: The Federal rules restrict any use of the information to criminally investigate or prosecute any alcohol or drug abuse patient.[facility] Care Teams (unrecognized sec tion and content) Anesthesiologist Assistant Certified Relationship Specialty Start Date End Date Chilo Mckeon MD [address] [place] [address] PCP - General Internal Medicine 11/07/11 Ortiz Garcia, [facility] [address] [place] [address] Pharmacist Pharmacy 03/15/20 Enid Garcia, [facility] [address] [place] [address] Pharmacist Pharmacy 10/11/20 Anesthesiologist Assistant Certified Relationship Specialty Start Date End Date Chilo Mckeon MD [address] [place] [address] PCP - General Internal Medicine 11/07/11 Ortiz Garcia, [facility] [address] [place] [address] Pharmacist Pharmacy 03/15/20 Enid Garcia, [facility] [address] [place] [address] Pharmacist Pharmacy 10/11/20 Anesthesiologist Assistant Certified Relationship Specialty Start Date End Date Chilo Mckeon MD [address] [place] [address] PCP - General Internal Medicine 11/07/11 KodiAudrey morinjade, [facility] [address] [place] [address] Pharmacist Pharmacy 03/15/20 Enid Garcia, [facility] [address] [place] [address] Pharmacist Pharmacy 10/11/20 Anesthesiologist Assistant Certified Relationship Specialty Start Date End Date Chilo Mckeon MD [address] [place] [address] PCP - General Internal Medicine 11/07/11 KodiAudrey morinjade, [facility] [address] [place] [address] Pharmacist Pharmacy 03/15/20 Enid Garcia, [facility] [address] [place] [address] Pharmacist Pharmacy 10/11/20 Anesthesiologist Assistant Certified Relationship Specialty Start Date End Date Chilo Mckeon MD [address] [facility] [place] [address] PCP - General Internal Medicine 11/07/11 [facility], [facility] [address] [place] [address] Pharmacist Pharmacy 03/15/20 Enid Garcia, [facility] [address] [facility] [place] [address] Pharmacist Pharmacy 10/11/20 Anesthesiologist Assistant Certified Relationship Specialty Start Date End Date Chilo Mckeon MD [address] [facility] [place] [address] PCP - General Internal Medicine 11/07/11 Radha Ortiz, [facility] [address] [place] [address] Pharmacist Pharmacy 03/15/20 Enid Garcia, [facility] [address] [place] [address] Pharmacist Pharmacy 10/11/20 Anesthesiologist Assistant Certified Relationship Specialty Start Date End Date Chilo Mckeon MD [address] [facility] [place] [address] PCP - General Internal Medicine 11/07/11 Kodipatience Ortiz, [facility] [address] [place] [address] Pharmacist Pharmacy 03/15/20 Enid Garcia, [facility] [address] [place] [address] Pharmacist Pharmacy 10/11/20 Anesthesiologist Assistant Certified Relationship Specialty Start Date End Date Chilo Mckeon MD [address] [place] [address] PCP - General Internal Medicine 11/07/11 Ortiz Garcia, [facility] [address] [place] [address] Pharmacist Pharmacy 03/15/20 Enid Garcia, [facility] [address] [place] [address] Pharmacist Pharmacy 10/11/20 Anesthesiologist Assistant Certified Relationship Specialty Start Date End Date Chilo Mckeon MD [address] [place] [address] PCP - General Internal Medicine 11/07/11 Ortiz Garcia, [facility] [address] [place] [address] Pharmacist Pharmacy 03/15/20 Enid Garcia, [facility] [address] [place] [address] Pharmacist Pharmacy 10/11/20 Anesthesiologist Assistant Certified Relationship Specialty Start Date End Date Chilo Mckeon MD [address] [place] [address] PCP - General Internal Medicine 11/07/11 Ortiz Garcia, [facility] [address] [place] [address] Pharmacist Pharmacy 03/15/20 Enid Garcia, [facility] [address] [place] [address] Pharmacist Pharmacy 10/11/20 Anesthesiologist Assistant Certified Relationship Specialty Start Date End Date Chilo Mckeon MD [address] [place] [address] PCP - General Internal Medicine 11/07/11 Ortiz Garcia, [facility] [address] [place] [address] Pharmacist Pharmacy 03/15/20 [facility] [address] [place] [address] Pharmacist Pharmacy 10/11/20 Anesthesiologist Assistant Certified Relationship Specialty Start Date End Date Chilo Mckeon MD [address] [place] [address] PCP - General Internal Medicine 11/07/11 [facility] [address] [place] [address] Pharmacist Pharmacy 03/15/20 [facility] [address] [place] [address] Pharmacist Pharmacy 10/11/20 Anesthesiologist Assistant Certified Relationship Specialty Start Date End Date Chilo Mckeon MD [address] [place] [address] PCP - General Internal Medicine 11/07/11 Ortiz Garcia, [facility] [address] [place] [address] Pharmacist Pharmacy 03/15/20 [facility] [address] [place] [address] Pharmacist Pharmacy 10/11/20 Team Status: Active Member Role Status Dates Dr. Chilo Mckeon MD Family Provider Active Dr. Hector Hernandez MD Primary Care Provider Active Team Status: Inactive Member Role Status Dates Dr. Chilo Mckeon MD Primary Care Provider, Referr ing Provider Active Dr. Hector Hernandez MD Attending Provider Active Team Status: Inactive Member Role Status Dates Dr. Chilo Mckeon MD Referring Provider Active ROSALIA Hidalgo Attending Provider Active Dr. Hector Hernandez MD Primary Care Provider Active Team Status: Inactive Member Role Status Dates Dr. Hector Hernandez MD Primary Care Provider Active ROSALIA Hidalgo Attending Provider, Referring Pr ovider Active Team Status: Active Member Role Status Dates Dr. Hector Hernandez MD Primary Care Provider Active ROSALIA Hidalgo Attending Provider, Referring Pr ovider Active Anesthesiologist Assistant Certified Relationship Specialty Start Date End Date Chilo Mckeon MD [address] [facility] [place] [address] PCP - General Internal Medicine 11/07/11 Enid Garcia, [facility] [address] [facility] [place] [address] Pharmacist Pharmacy 10/11/20 Anesthesiologist Assistant Certified Relationship Specialty Start Date End Date Chilo Mckeon MD [address] [facility] [place] [address] PCP - General Internal Medicine 11/07/11 [facility]Enid parsons[facility] [address] [facility] [place] [address] Pharmacist Pharmacy 10/11/20 Anesthesiologist Assistant Certified Relationship Specialty Start Date End Date Chilo Mckeon MD [address] [facility] [place] [address] PCP - General Internal Medicine 11/07/11 JoseEnid parsonsSS[facility] [address] [facility] [place] [address] Pharmacist Pharmacy 10/11/20 Anesthesiologist Assistant Certified Relationship Specialty Start Date End Date Chilo Mckeon MD [address] [facility] [place] [address] PCP - General Internal Medicine 11/07/11 [facility] [address] [facility] [place] [address] Pharmacist Pharmacy 10/11/20 Peyton Martins, SUPERVISOR OF RESEARCH.WRAPPER STEMMER HAND [address] [facility] [place] [address] Director Of Housing Internal Medicine 03/09/24 Karo Amato, SUPERVISOR OF RESEARCH.PROJECT CONSTRUCTION MANAGER [address] [place] [address] [facility] Internal Medicine 03/09/24 Anesthesiologist Assistant Certified Relationship Specialty Start Date End Date Chilo Mckeon MD [address] [place] [address] PCP - General Internal Medicine 11/07/11 [facility] [address] [facility] [place] [address] Pharmacist Pharmacy 10/11/20 Peyton Martins, SUPERVISOR OF RESEARCH.WRAPPER STEMMER [employer] [address] [place] [address] [facility] Internal Medicine 03/09/24 Karo Amato, SUPERVISOR OF RESEARCH.PROJECT CONSTRUCTION MANAGER [address] [place] [address] [facility] Internal Medicine 03/09/24 Team Status: Active Member Role Status Dates Dr. Hector Hernandez MD Primary Care Provider Active Team Status: Inactive Member Role Status Dates Dr. Hector Hernandez MD Attending Provider Active Start: February 19, 2024 End: February 19, 2024 Dr. Hector Hernandez MD Referring Provider Active Start: February 19, 2024 End: February 19, 2024 Team Status: Inactive Member Role Status Dates Barbara Knott IRRIGATOR, IRRIGATOR-C Attending Provider Active Start: May 12, 2024 End: May 12, 2024 Barbara Knott IRRIGATOR, IRRIGATOR-C Referring Provider Active Start: May 12, 2024 End: May 12, 2024 Dr. Hector Hernandez MD Primary Care Provider Active Start: May 12, 2024 End: May 12, 2024 Team Status: Inactive Member Role Status Dates Dr. Hector Hernandez MD Primary Care Provider Active Start: May 21, 2024 End: May 21, 2024 Barbara Knott IRRIGATOR, IRRIGATOR-C Attending Provider Active Start: May 21, 2024 End: May 21, 2024 Barbara Knott IRRIGATOR, IRRIGATOR-C Referring Provider Active Start: May 21, 2024 End: May 21, 2024 Team Status: Inactive Member Role Status Dates ROSALIA Hidalgo Attending Provider Active Start: May 27, 2024 End: May 27, 2024 Dr. Hector Hernandez MD Primary Care Provider Active Start: May 27, 2024 End: May 27, 2024 Dr. Hector Hernandez MD Referring Provider Active Start: May 27, 2024 End: May 27, 2024 Team Status: Inactive Member Role Status Dates Dr. Hector Hernandez MD Primary Care Provider Active Start: May 27, 2024 End: May 27, 2024 ROSALIA Hidalgo Attending Provider Active Start: May 27, 2024 End: May 27, 2024 ROSALIA Hidalgo Referring Provider Active Start: May 27, 2024 End: May 27, 2024 Anesthesiologist Assistant Certified Relationship Specialty Start Date End Date Chilo Mckeon MD [address] [place], [place] [address] PCP - General Internal Medicine 11/07/11 Enid Garcia RPh [address] [place], [place] [address] Pharmacist Pharmacy 10/11/20 Peyton Martins APRN.WRAPPER STEMMER HAND [address] [place], [place] [id number] Director Of Housing Internal Medicine 03/09/24 Karo Amato, SUPERVISOR OF RESEARCH.PROJECT CONSTRUCTION MANAGER [address] [facility], [place] [address] [facility] Internal Medicine 06/23/24 Team Status: Active Member Role/Relationship Status Dates Dr. Hector Hernandez MD Primary Care Provider Active Team Status: Inactive Member Role/Relationship Status Dates Dr. Hector Hernandez MD Primary Care Provider Active Start: November 25, 2024 End: November 25, 2024 Dr. Hector Hernandez MD Referring Provider Active Start: November 25, 2024 End: November 25, 2024 Sylwia Gomez NP-C Attending Provider Active Start: November 25, 2024 End: November 25, 2024 Anesthesiologist Assistant Certified Relationship Specialty Start Date End Date Hector Hernandez MD [address] [facility], [place] [address] PCP - General Internal Medicine 08/10/24 Enid Garcia [facility] [address] [facility], [place] [address] Pharmacist Pharmacy 10/11/20 Peyton Martins APRN.WRAPPER STEMMER HAND [address] [facility], [place] [address] [facility] Internal Medicine 03/09/24 Karo Amato SUPERVISOR OF RESEARCH.PROJECT CONSTRUCTION MANAGER [address] [facility] [place] [address] [facility] Internal Medicine 06/23/24 Reason for Visit (unrecogniz ed section and content) Reason Onset Date Comments Refill Request 08/11/2021 Reason Comments Follow Up Reason Comments 4 month f/u Reason Comments Release Of Medical Records Reason Comments F/U 4 month Labs Prior Reason Onset Date Comments Population Health Navigation Outreach 10/07/2023 [employer] [facility] [place] Reason Onset Date Comments Population Health Navigation Outreach 02/21/2024 [employer] [facility] [place] Reason Onset Date Comments Population Health Navigation Outreach 05/05/2024 [employer] [facility] [place] Reason Onset Date Comments Population Health Navigation Outreach 06/08/2024 [employer] [facility] [place] Reason Onset Date Comments Population Health Navigation Outreach 08/04/2024 [employer] [facility] [place] Reason Onset Date Comments Allied Health Visit 11/25/2024 Medication A dherence Outreach Goals (unrecognized section and content) Goals may be documented in a n alternate sectionGoals may be documented in an alternate sectionGoals may be documented in an alternate sectionGoals may be documented in an alternate sectionGoals may be documented in an alternate section INFORMATION SOURCE (unrecogn ized section and content) DATE CREATED AUTHOR 11/26/2024 [facility] DATE CREATED AUTHOR AUTHOR'S OCTAVIO MONTANO 11/27/2024 [facility] FOR RECORDS PERTAINING TO PATIENTS WHO ARE OR HAVE BEEN ENROLLED IN A CHEMICAL DEPENDENCY/SUBSTANCEABUSE PROGRAM, SOME INFORMATION MAY BE OMITTED. This clinical summary was aggregated from multiple sources. Caution should be exercised in using it in the provision of clinical care. This summary normalizes information from multiple sources, and as a consequence, information in this document may materially change the coding, format and clinical context of patient data. In addition, data may be omitted in some cases. CLINICAL DECISIONS SHOULD BE BASED ON THE PRIMARY CLINICAL RECORDS. [employer] [facility]. provides no warranty or guarantee of the accuracy or completeness of information in this document.
--- OUTSIDE RECORDS SUMMARY | 2025-01-04 09:26 | XMS RPT_ITS | CCD ---
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 Chilo Mckeon Primary Care Provider Dr. Chilo Mckeon Referring Provider Dr. Melquiades Scherer Attending Provider Chilo Mckeon MD Primary Care Provider [facility], [place] Unavailable [facility], [place] Unavailable Chilo Mckeon MD Primary Care Provider [facility], [place] Unavailable [facility], [place] Unavailable [facility], [place] Unavailable Dr. Chilo Mckeon Primary Care Provider Dr. Chilo Mckeon Referring Provider Dr. Hector Hernandez Attending Provider [phone] ROSALIA Gomez Attending Provider Dr. Hector Hernandez Primary Care Provider Chilo Mckeon MD Primary Care Provider Eliezer WINDOWS VMWARE ADMINISTRATOR.RESIDENTIAL CONCIERGE, Peyton Unavailable Lm WINDOWS VMWARE ADMINISTRATOR.SENIOR MICROSTRATEGY DEVELOPER, Karo Unavailable Lm WINDOWS VMWARE ADMINISTRATOR.SENIOR MICROSTRATEGY DEVELOPER, Karo Unavailable [phone] David GALLO, Dr. Bobo Attending Provider David AGLLO, Dr. Bobo Referring Provider [place] 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-C, Barbara Attending Provider Hedy 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-C, Barbara Referring Provider David GALLO, Dr. Bobo Primary Care Provider [phone] Jason 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-C, Sylwia Attending Provider Jason 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-C, Sylwia Referring Provider Lm WINDOWS VMWARE ADMINISTRATOR.SENIOR MICROSTRATEGY DEVELOPER, Karo Unavailable David GALLO, Dr. Bobo Primary Care Provider [phone] Dr. Hector Hernandez MD Referring Provider Jason 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-C, Sylwia Attending Provider Hector Hernandez MD Primary Care Provider [phone] [place], Hector Referring Unavailable Jason, Sylwia Attending Unavailable [place], Hector Primary Care Unavailable David, Hector Primary Care Unavailable JasonTeddyn Attending Unavailable [place], Hector Referring Unavailable [place], Hector Referring Unavailable [place], Hector Attending Unavailable Hedy 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, Barbara Attending Unavailable Hedy 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, Barbara Referring Unavailable David, Hector Primary Care Unavailable [place] 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, Barbara Attending Unavailable Hedy 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, Barbara Referring Unavailable David, Hector Primary Care Unavailable [place], Hector Primary Care Unavailable Jason Sylwia Attending Unavailable Jason, Sylwia Referring Unavailable Allergies Allergy Classification Reported Allergen(s) Allergy Type Date of Onset Reaction(s) Facility (5 sources) Penicillins Drug Allergy 2 [facility] (20 sources) Sulfacetamide Drug Allergy 2 [facility] (13 sources) Penicillins Drug Allergy 2 [facility] (5 sources) Penicillins Propensity to adverse reactions 2 [facility] (5 sources) Sulfonamides (Antibiotic) Propensity to adverse reactions 2 Rash [facility] (2 sources) Penicillins Drug Allergy 2 [facility] (1 source) Penicillins Drug allergy (disorder) 5 [facility] (1 source) Sulfonamides (Antibiotic) Drug allergy (disorder) 5 [facility] Medications Current Medications Medication Drug Class(es) Dates Sig (Normalized) Sig (Original) Blood-Glucose Meter,Continuous (Freestyle Tyler 3 Amawalk) misc (1 source) Start: 11-27-2023 Blood-Glucose Meter,Continuous (Freestyle Tyler 3 Amawalk) misc Active 0 .Route 1 November 27, 2023 12:00am As directed Blood-Glucose Sensor (Freestyle Tyler 3 Plus Sensor) device (5 sources) Start: 11-11-2024 Blood-Glucose Sensor (Freestyle Tyler 3 Plus Sensor) device Active 0 .ROUTE .COMPLEX 6 3 November 11, 2024 9:07am Diabetes mellitus watermaster (current) use of insulin CHANGE SENSOR EVERY 15 DAYS DIRECTED Start: 05-27-2024 Blood-Glucose Sensor (Freestyle Tyler 3 Plus Sensor) device Active 0 .Route 1 May 27, 2024 1:00am Diabetes mellitus penitentiary (current) use of insulin As directed Start: 05-27-2024 End: 11-11-2024 Blood-Glucose Sensor (Freest yle Tyler 3 Plus Sensor) device Discontinued 0 .Route 6 May 27, 2024 1:00am November 11, 2024 9:07am Diabetes mellitus watermaster (current) use of insulin 1 sensor q 15 days Start: 05-27-2024 Blood-Glucose Sensor (Freestyle Tyler 3 Plus Sensor) device Active 0 .Route 1 May 27, 2024 1:00am As directed Start: 05-27-2024 Blood-Glucose Sensor (Freestyle Tyler 3 Plus Sensor) device Active 0 .Route 6 May 27, 2024 1:00am 1 sensor q 15 days Blood-Glucose,Dispute Coordinator,Cont (Freestyle Tyler 3 Amawalk) misc (1 source) Start: 11-27-2023 Blood-Glucose,Dispute Coordinator,Cont (Freestyle Tyler 3 Amawalk) misc Active 0 .Route 1 0 November 27, 2023 12:00am Diabetes mellitus penitentiary (current) use of insulin As directed cholecalciferol [...] Take 1 tablet by mouth once daily. ID#[id number] 90 tablet 3 08/28/2022 Active Comment on above: Take 1 tablet by teetee th once daily. ID#[id number] COMPOUNDED PRESCRIPTION (20 sources) Start: 2 COMPOUNDED [...] Take 1 tablet by teetee once daily. ID#[id number] ferrous sulfate 325 mg oral tablet (5 [...] 18 04May 05, 2024 3:27pm Diabetes mellitus penitentiary (current) use of insulin Start: 05-05-2024 Insulin Glargi ne-Yfgn (Semglee(Insulin Glarg-Yfgn)Pen) 100 unit/mL (3 mL) insulin pen Active 20 U SC DAILY May 05, 2024 3:27pm Start: 11-27-2023 End: 05-05-2024 Insulin Glargine-Yfgn (Semgl ee(Insulin Glarg-Yfgn)Pen) 100 unit/mL (3 mL) insulin pen Discontinued 20 U SC DAILY 18 04November 27, 2023 2:06pm May 05, 2024 3:27pm Diabetes mellitus penitentiary (current) use of insulin Start: 11-27-2023 End: 05-05-2024 Insulin Glargine-Yfgn (Semgl ee(Insulin Glarg-Yfgn)Pen) 100 unit/mL (3 mL) insulin pen Discontinued 20 U SC DAILY November 27, 2023 2:06pm May 05, 2024 3:27pm Start: 08-21-2023 End: 11-27-2023 Insulin Glargine-Yfgn (Semgl ee(Insulin Glarg-Yfgn)Pen) 100 unit/mL (3 mL) insulin pen Discontinued 20 U SC DAILY August 21, 2023 1:13pm November 27, 2023 2:06pm Diabetes mellitus watermaster (current) use of insulin Start: 08-21-2023 End: [...] 9:54am January 08, 2023 2:06pm Diabetes mellitus watermaster (current) use of insulin Start: 12-31-2022 End: [...] Take 2 tablets by mouth twice daily. ID#[id number] As directed 360 tablet 3 08/28/2022 Active Start: 09-26-2020 End: 08-25-2022 take 2 tablets by mouth twice daily metFORMIN ER (GLUCOPHAGE XR) 500 mg 24 hr tablet Take 2 tablets by mouth twice daily. ID#[id number] As directed 360 tablet 3 08/11/2021 08/25/2022 Discontinued Start: 08-23-2018 End: 11-18-2024 take 2 tablets by mouth twice daily Metformin 500 mg tablet Active 1000 mg PO TWICE A DAY 360 3 November 18, 2024 9:29am Diabetes mellitus watermaster (current) use of insulin Start: 08-23-2018 End: 05-06-2023 take 1000 mg by mouth twice daily Metformin Active 1000 MG PO TWICE A DAY 360 May 06, 2023 11:16am Comment on above: Take 2 tablets by mo [facility] twice daily. ID#[id number] As directed 24 hr metoprolol succinate 50 [...] 6 November 12, 2024 7:48am Diabetes mellitus penitentiary (current) use of insulin Start: 07-01-2024 End: 11-12-2024 Tirzepatide (Mounjaro) 15 mg /0.5 mL pen injector Discontinued 15 mg SC EVERY WEEK 6 July 01, 2024 12:17pm November 12, 2024 7:48am Diabetes mellitus watermaster (current) use of insulin Start: 05-05-2024 End: 07-01-2024 Tirzepatide (Mounjaro) 15 mg /0.5 mL pen injector Discontinued 15 mg SC EVERY WEEK 6 May 05, 2024 4:01pm July 01, 2024 12:17pm Diabetes mellitus watermaster (current) use of insulin Start: 05-05-2024 Tirzepatide (M ounjaro) 15 mg/0.5 mL pen injector Active 15 mg SC EVERY WEEK May 05, 2024 4:01pm Start: 11-27-2023 End: 05-05-2024 Tirzepatide (Mounjaro) 15 mg /0.5 mL pen injector Discontinued 15 mg SC EVERY WEEK 6 November 27, 2023 2:05pm May 05, 2024 4:01pm Diabetes mellitus penitentiary (current) use of insulin Start: 11-27-2023 End: 05-05-2024 Tirzepatide (Mounjaro) 15 mg /0.5 mL pen injector Discontinued 15 mg SC EVERY WEEK 6 November 27, 2023 2:05pm May 05, 2024 4:01pm Start: 08-19-2023 End: 11-27-2023 Tirzepatide (Mounjaro) 15 mg /0.5 mL pen injector Discontinued 15 mg SC EVERY WEEK 2 August 19, 2023 12:00am November 27, 2023 2:05pm Diabetes mellitus watermaster (current) use of insulin Start: 08-19-2023 End: [...] November 27, 2023 1:50pm Blood-Glucose Meter,Continuous (DEXCOM SIDE LASTER) misc (1 source) Start: 11-25-2020 End: 06-13-2021 Blood-Glucose Meter,Continuous (DEXCOM SIDE LASTER) misc Indications: Uncontrolled type 2 diabetes mellitus [...] 3:28pm May 27, 2024 3:26pm Diabetes mellitus watermaster (current) use of insulin 1 sensor q 14 days Start: 05-05-2024 End: 05-27-2024 Blood-Glucose Sensor (Freest yle Tyler 3 Sensor) device Discontinued 0 .Route May 05, 2024 3:28pm May 27, 2024 3:26pm 1 sensor q 14 days Start: 12-17-2023 End: 05-05-2024 Blood-Glucose Sensor (Freest yle Tyler 3 Sensor) device Discontinued 0 .Route 6 December 17, 2023 9:31am May 05, 2024 3:28pm Diabetes mellitus penitentiary (current) use of insulin 1 sensor q 14 days Start: 12-17-2023 End: 05-05-2024 Blood-Glucose Sensor (Freest yle Tyler 3 Sensor) device Discontinued 0 .Route December 17, 2023 9:31am May 05, 2024 3:28pm 1 sensor q 14 days Start: 11-27-2023 End: 12-17-2023 Blood-Glucose Sensor (Freest yle Tyler 3 Sensor) device Discontinued 0 .Route 6 November 27, 2023 12:00am December 17, 2023 9:31am Diabetes mellitus penitentiary (current) use of insulin 1 sensor q [...] 1.5 mg subcutaneously one time a week. ID#[id number] 12 Each 3 09/28/2020 09/11/2022 Discontinued (Dosage adjustment) Start: 08-23-2018 End: 09-25-2021 Dulaglutide (Trulicity) 0.75 pen injector Discontinued 0.75 U SC EVERY WEEK August 23, 2018 12:00am September 25, 2021 11:25am Comment on above: Inject 1.5 mg subcut aneously one time a week. ID#[id number] ezetimibe 10 mg oral tablet (5 sources) Dietary Cholesterol Absorption Inhibitor Start: 9 End: 3 take 1 tablet by mouth once daily Ezetimibe 10 MG tablet Discontinued 10 mg PO DAILY August 23, 2018 12:00am July 25, 2022 2:49pm Flash Glucose Scanning Amawalk (Freestyle Tyler 2 Amawalk) misc (5 sources) Start: 2 End: 4 Flash Glucose Scanning Amawalk (Freestyle Tyler 2 Amawalk) misc Discontinued NMA .ROUTE .MEDSUPPLY 1 September 25, 2021 12:00am November 27, 2023 2:03pm As directed Start: 09-25-2021 Flash Glucose Scanning Amawalk (Freestyle Tyler 2 Amawalk) misc Active EACH .ROUTE .MEDSUPPLY 1 September 24, 2021 11:00pm As directed Start: 09-25-2021 Flash Glucose Scanning Amawalk (Freestyle Tyler 2 Amawalk) misc Active EACH .ROUTE .MEDSUPPLY 1 September 25, 2021 12:00am As directed Flash Glucose Sensor (Freest yle Tyler 2 Sensor) kit (20 sources) Start: 05-15-2023 End: 11-27-2023 Flash Glucose Sensor (Freest yle Tyler 2 Sensor) kit Discontinued 0 .Route 2 May 15, 2023 4:56pm November 27, 2023 2:03pm Diabetes mellitus penitentiary (current) use of insulin 1 sensor q [...] / neomycin 3.5 mg/ml / polymyxin b [id number] unt/ml otic suspension (2 sources) Aminoglycoside Antibacterial, Polymyxin-class Antibacterial, Corticosteroid Start: 11-27-2023 End: 12-07-2023 Wqpxxovy-Wslznediz-Hr 3.5-10,000-1 mg/mL-unit/mL-% drops,suspension Discontinued 4 NMA OTIC [...] 2:05pm August 21, 2023 1:13pm Diabetes mellitus watermaster (current) use of insulin Start: 01-08-2023 End: [...] unspecified] 04-20-2011 Chronic Other aftercare (1 source) penitentiary (current) use of insulin; Translations: [watermaster (current) use of insulin] Onset: 11-25-2024 Episodic [...] Endocrinology Visit Reporton 11-25-2024 Endocrinology Visit Report [facility] 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 Normal [facility] Microalb:Creat Ratio,Random URon 10-26-2024 MALB:CREAT 21.3 mg/g CRE Normal <30 mg/g CRE [facility] Comment on above: Result Comment: AMENDED REPORT 10/26/242002 MALB:CREAT previously reported as: 213.0 mg/g CRE Performed By: #### L 502.0250 #### [facility] [address] [place], [place], [id number] Absolute neutrophil countOrd ered By: Hector Hernandez on 05-27-2024 Neutrophils (Bld) [#/Vol] 2.9 10*3/uL 2.0-7.7 [facility] Albumin DL <= 20 mg/L (U) [M ass/Vol]Ordered By: Sylwia Gomez on 05-27-2024 Urine Random Microalbumin 21.3 mg/L NO RANGE EST. [facility] BUN/creatinine ratioOrdered By: Sylwia Gomez on 05-27-2024 Urea nitrogen/Creatinine [Mass ratio] 24.8 mg/mg High 10-20 [facility] Basophil percentageOrdered B y: Hector Hernandez on 05-27-2024 Basophils/100 WBC (Bld) 0.4 % 0-1 [facility] Bilirubin, totalOrdered By: Sylwia Gomez on 05-27-2024 Bilirubin [Mass/Vol] 0.30 mg/dL 0.00-1.30 [facility] CBC W/Diff, Automatedon 05-03 Absolute Lymph 1.56 X10 3/uL Normal 0.83-4.51 [facility] Comment on above: Performed By: #### L 100.0100 #### [facility] [address] [place], [address] Absolute Neut 2.9 X10 3/uL Normal 2.0-7.7 [facility] Comment on above: Performed By: #### L 100.0100 #### [facility] [address] [place], [address] Basophils/100 WBC (Bld) 0.4 % Normal 0-1 [facility] Comment on above: Performed By: #### L 100.0100 #### [facility] [address] [place], [address] Eosinophils/100 WBC (Bld) 0.8 % Normal 0-5 [facility] Comment on above: Performed By: #### L 100.0100 #### [facility] [address] [place], [address] Erythrocyte distribution width (RBC) [Ratio] 14.1 % Normal 11.6-14.6 [facility] Comment on above: Performed By: #### L 100.0100 #### [facility] [address] [place], [address] Hematocrit (Bld) [Volume fraction] 35.7 % Low 37-47 [facility] Comment on above: Performed By: #### L 100.0100 #### [facility] [address] [place], [address] Hemoglobin (Bld) [Mass/Vol] 11.4 g/dL Low 12.0-15.0 [facility] Comment on above: Performed By: #### L 100.0100 #### [facility] [address] [place], [address] IG% 0.200 Normal 0.0-0.9 [facility] Comment on above: Result Comment: IG% - Immature Granulocytes (promyelocytes, myelocytes and metamyelocytes) > 1% indicates that a LEFT SHIFT is Present. Performed By: #### L 100.0100 #### [facility] [address] [place], [address] Lymphocytes/100 WBC (Bld) 31.7 % Normal 19-41 [facility] Comment on above: Performed By: #### L 100.0100 #### [facility] [address] [place], [address] MCH (RBC) [Entitic mass] 28.4 pg Normal 27.0-32.0 [facility] Comment on above: Performed By: #### L 100.0100 #### [facility] [address] [place], [address] MCHC (RBC) [Mass/Vol] 31.9 g/dL Low 32-36 [facility] Comment on above: Performed By: #### L 100.0100 #### [facility] [address] [place], [address] MCV (RBC) [Entitic vol] 89.0 fL Normal 81-99 [facility] Comment on above: Performed By: #### L 100.0100 #### [facility] [address] [place], [address] Monocytes/100 WBC (Bld) 7.3 % Normal 0-10 [facility] Comment on above: Performed By: #### L 100.0100 #### [facility] [address] [place], [address] Neutrophils/100 WBC (Bld) 59.6 % Normal 47-70 [facility] Comment on above: Performed By: #### L 100.0100 #### [facility] [address] [place], [address] Nucleated RBC (Bld) [#/Vol] 0 10*3/uL Normal 0-5 [facility] Comment on above: Performed By: #### L 100.0100 #### [facility] [address] [place], [address] Platelet mean volume (Bld) [Entitic vol] 10.2 fL Normal 6.2-12.0 [facility] Comment on above: Performed By: #### L 100.0100 #### [facility] [address] [place], [address] Platelets (Bld) [#/Vol] 305 10*3/uL Normal 150-450 [facility] Comment on above: Performed By: #### L 100.0100 #### [facility] [address] [place], [address] RBC (Bld) [#/Vol] 4.01 10*6/uL Low 4.2-5.[address] [facility] Comment on above: Performed By: #### L 100.0100 #### [facility] [address] [place], [address] RDW SD 45.8 fl High 35.1-43.9 [facility] Comment on above: Performed By: #### L 100.0100 #### [facility] [address] [place], [address] WBC (Bld) [#/Vol] 4.9 10*3/uL Normal 4.4-11.0 [facility] Comment on above: Performed By: #### L 100.0100 #### [facility] [address] [place], [address] Calculated very low density lipoprotein (VLDL) cholesterol measurementOrdered By: Sylwia Gomez on 05-27-2024 VLDL Cholesterol 16 mg/dL 5-40 [facility] Carbon dioxide measurementOr dered By: Sylwia Gomez on 05-27-2024 CO2 [Moles/Vol] 23.4 mmol/L 22.0-29.0 [facility] Chloride measurementOrdered By: Sylwia Gomez on 05-27-2024 Chloride [Moles/Vol] 105 mmol/L 96-108 [facility] Comprehensive Metabolic Prof ilon 05-27-2024 Albumin [Mass/Vol] 4.8 g/dL Normal 3.4-4.8 [facility] Comment on above: Performed By: #### L 501.9520, L500.4100, L500.4050 #### [facility] [address] [place], [address] Albumin/Globulin [Mass ratio] 2.0 {ratio} Normal 0.9-2.4 [facility] Comment on above: Performed By: #### L 501.9520, L500.4100, L500.4050 #### [facility] [address] [place], [address] ALK PHOS 31 U/L Low 35-104 [facility] Comment on above: Performed By: #### L 501.9520, L500.4100, L500.4050 #### [facility] [address] [place], [address] ALT [Catalytic activity/Vol] 15 U/L Normal <=34 [facility] Comment on above: Performed By: #### L 501.9520, L500.4100, L500.4050 #### [facility] [address] [place], [address] Anion gap [Moles/Vol] 11 mmol/L Normal 5-15 [facility] Comment on above: Performed By: #### L 501.9520, L500.4100, L500.4050 #### [facility] [address] [place], [address] AST [Catalytic activity/Vol] 18 U/L Normal <=31 [facility] Comment on above: Performed By: #### L 501.9520, L500.4100, L500.4050 #### [facility] [address] [place], [address] Bilirubin [Mass/Vol] 0.30 mg/dL Normal 0.00-1.30 [facility] Comment on above: Performed By: #### L 501.9520, L500.4100, L500.4050 #### [facility] [address] [place], [address] BUN/CRE 24.8 RATIO High 10-20 [facility] Comment on above: Performed By: #### L 501.9520, L500.4100, L500.4050 #### [facility] [address] [place], [address] Calcium [Mass/Vol] 9.4 mg/dL Normal 7.6-11.0 [facility] Comment on above: Performed By: #### L 501.9520, L500.4100, L500.4050 #### [facility] [address] [place], [address] Chloride [Moles/Vol] 105 mmol/L Normal 96-108 [facility] Comment on above: Performed By: #### L 501.9520, L500.4100, L500.4050 #### [facility] [address] [place], [address] CO2 [Moles/Vol] 23.4 mmol/L Normal 22.0-29.0 [facility] Comment on above: Performed By: #### L 501.9520, L500.4100, L500.4050 #### [facility] [address] [place], [address] Creatinine [Mass/Vol] 0.8 mg/dL Normal 0.6-1.0 [facility] Comment on above: Performed By: #### L 501.9520, L500.4100, L500.4050 #### [facility] [address] [place], [address] GFR/1.73 sq M.predicted among non-blacks MDRD (S/P/Bld) [Vol rate/Area] 83 mL/min/{1.73_m2} Normal >60 [facility] Comment on above: Result Comment: mL/m in/1.73m2 CKD-EPI Creatinine Equation (2020) Performed By: #### L 501.9520, L500.4100, L500.4050 #### [facility] [address] [place], [address] Globulin (S) [Mass/Vol] 2.3 g/dL Normal 2.2-4.2 [facility] Comment on above: Performed By: #### L 501.9520, L500.4100, L500.4050 #### [facility] [address] [place], [address] Glucose [Mass/Vol] 100 mg/dL High 70-99 [facility] Comment on above: Performed By: #### L 501.9520, L500.4100, L500.4050 #### [facility] [address] [place], [address] Potassium [Moles/Vol] 4.4 mmol/L Normal 3.3-5.1 [facility] Comment on above: Performed By: #### L 501.9520, L500.4100, L500.4050 #### [facility] [address] [place], [address] Sodium [Moles/Vol] 139 mmol/L Normal 133-145 [facility] Comment on above: Performed By: #### L 501.9520, L500.4100, L500.4050 #### [facility] [address] [place], [address] T PROT 7.1 g/dL Normal 5.9-8.4 [facility] Comment on above: Performed By: #### L 501.9520, L500.4100, L500.4050 #### [facility] [address] [place], [address] Urea nitrogen [Mass/Vol] 20 mg/dL High 4-19 [facility] Comment on above: Performed By: #### L 501.2088, L500.9025, L500.1947 #### [facility] [address] [place], [address] Creatinine Unsp time (U) [Ma ss/Vol]Ordered By: Sylwia Gomez on 05-27-2024 Creatinine (U) [Mass/Vol] 100.00 mg/dL NO RANGE EST. [facility] Endocrinology Visit Reporton 05-27-2024 Endocrinology Visit Report [facility] 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 Normal [facility] [facility] Eosinophil percentageOrdered By: Hector Hernandez on 05-27-2024 Eosinophils/100 WBC (Bld) 0.8 % 0-5 [facility] Erythrocyte distribution wid th ratioOrdered By: Hector Hernandez on 05-27-2024 Erythrocyte distribution width (RBC) [Ratio] 14.1 % 11.6-14.6 [facility] Erythrocyte distribution wid th standard deviationOrdered By: Hector Hernandez on 05-27-2024 Erythrocyte distribution width (RBC) [Entitic vol] 45.8 fL High 35.1-43.9 [facility] GFR/1.73 sq M.predicted karla g non-blacks MDRD (S/P/Bld) [Vol rate/Area]Ordered By: Sylwia Gomez on 05-27-2024 Estimated GFR (MDRD) Non-Af Amer 83 >60 [facility] Comment on above: mL/min/1.73m2 CKD-EP I Creatinine Equation (2020) Hematocrit Auto (Bld) [Volum e fraction]Ordered By: Hector Hernandez on 05-27-2024 Hematocrit (Bld) [Volume fraction] 35.7 % Low 37-47 [facility] Hemoglobin measurementOrdere d By: Hector Hernandez on 05-27-2024 Hemoglobin (Bld) [Mass/Vol] 11.4 g/dL Low 12.0-15.0 [facility] Immature granulocytes/100 WB C Auto (Bld)Ordered By: Hector Hernandez on 05-27-2024 Immature granulocytes/100 WBC (Bld) 0.200 % 0.0-0.9 [facility] Comment on above: IG% - Immature Granu locytes (promyelocytes, myelocytes and metamyelocytes) > 1% indicates that a LEFT SHIFT is Present. LDL calc ser/plasOrdered By: Sylwia Gomez on 05-27-2024 LDL Cholesterol, Calculated 62 mg/dL [facility] Comment on above: Dwiumgsjsi=976-333 m g/dL & Higher Ujzw=691 mg/dL or greater Laboratory - Chemistry and C hemistry - challengeOrdered By: Sylwia Gomez on 05-27-2024 AST [Catalytic activity/Vol] 18 U/L <32 [facility] Laboratory - Hematology and Cell countsOrdered By: Sylwia Gomez on 05-27-2024 HbA1c (Bld) [Mass fraction] 6.6 % High 4.2-6.3 [facility] Lipid Profileon 05-27-2024 CHOL:HDL 2.43 Normal [facility] Comment on above: Performed By: #### L 501.8288, L500.4100, L500.4050 #### [facility] [address] [place], [address] Cholesterol [Mass/Vol] 131 mg/dL Normal <=200 [facility] Comment on above: Result Comment: Chol esterol level, Desirable <200 mg/dL Borderline high cholesterol 200-239 mg/dL High cholesterol >=240 mg/dL Recommendations of the NCEP Adult Treatment Panel for the following risk-cutoff thresholds for the [place] population. Performed By: #### L 501.9520, L500.4100, L500.4050 #### [facility] [address] [place], [address] Cholesterol in HDL [Mass/Vol] 54 mg/dL Normal [facility] Comment on above: Result Comment: Elsa onal Cholesterol Education Program (NCEP) guidelines: <40 mg/dL: Low HDL-cholesterol (major risk factor for CHD) >= 60 mg/dL: High HDL-cholesterol (negative risk factor for CHD) HDL-cholesterol is affected by a number of factors, e.g. smoking, exercise, hormones, sex and age. Performed By: #### L 501.9520, L500.4100, L500.4050 #### [facility] [address] [place], [address] Cholesterol in LDL [Mass/Vol] 62 mg/dL Normal [facility] Comment on above: Result Comment: Bord spbygd=115-509 mg/dL Higher Feiw=629 mg/dL or greater Performed By: #### L 501.9520, L500.4100, L500.4050 #### [facility] [address] [place], [address] Cholesterol in VLDL [Mass/Vol] 16 mg/dL Normal 5-40 [facility] Comment on above: Performed By: #### L 501.9520, L500.4100, L500.4050 #### [facility] [address] [place], [address] Triglyceride [Mass/Vol] 78 mg/dL Normal [facility] Comment on above: Result Comment: The drugs N-Acetylcysteine and Metamizole may falsely depress this assay. Normal range: <150 mg/dL Borderline High: 150-199 mg/dL High: 200-499 mg/dL Very High: >500 mg/dL Performed By: #### L 501.9577, L500.4100, L500.4050 #### [facility] [address] [place], [address] Lymphocytes Auto (Unsp spec) [#/Vol]Ordered By: Hector Hernandez on 05-27-2024 Lymphocytes (Bld) [#/Vol] 1.56 10*3/uL 0.83-4.51 [facility] Lymphocytes/100 WBC Auto (Un sp spec)Ordered By: Hector Hernandez on 05-27-2024 Lymphocytes/100 WBC (Bld) 31.7 % 19-41 [facility] MCV (mean corpuscular volume ) determinationOrdered By: Hector Hernandez on 05-27-2024 MCV (RBC) [Entitic vol] 89.0 fL 81-99 [facility] Mean corpuscular hemoglobin (MCH) determinationOrdered By: Hector Hernandez on 05-27-2024 MCH (RBC) [Entitic mass] 28.4 pg 27.0-32.0 [facility] Mean corpuscular hemoglobin concentration (MCHC) determinationOrdered By: Hector Hernandez on 05-27-2024 MCHC (RBC) [Mass/Vol] 31.9 g/dL Low 32-36 [facility] Mean platelet volume determi nationOrdered By: Hector Hernandez on 05-27-2024 Platelet mean volume (Bld) [Entitic vol] 10.2 fL 6.2-12.0 [facility] Microalbumin/creat ratio urO rdered By: Sylwia Gomez on 05-27-2024 Urine Microalbumin/Creatinine Ratio 213.0 mg/g CRE [facility] Monocyte percentageOrdered B y: Hector Hernandez on 05-27-2024 Monocytes/100 WBC (Bld) 7.3 % 0-10 [facility] Neutrophil percentageOrdered By: Hector Hernandez on 05-27-2024 Neutrophils/100 WBC (Bld) 59.6 % 47-70 [facility] Nucleated red blood cell per centageOrdered By: Hector Hernandez on 05-27-2024 Nucleated RBC/100 WBC (Bld) [Ratio] 0 % 0-5 [facility] Platelet countOrdered By: Dann Hernandez on 05-27-2024 Platelets (Bld) [#/Vol] 305 10*3/uL 150-450 [facility] RBC Auto (Bld) [#/Vol]Ordere d By: Hector Hernandez on 05-27-2024 RBC (Bld) [#/Vol] 4.01 10*6/uL Low 4.2-5.[address] [facility] Screening total cholesterol/ high density lipoprotein (HDL) cholesterol ratioOrdered By: Sylwia Gomez on 05-27-2024 Cholesterol.total/Choles terol in HDL [Mass ratio] 2.43 {ratio} [facility] Serum creatinine measurement (mass/volume)Ordered By: Sylwia Gomez on 05-27-2024 Creatinine [Mass/Vol] 0.8 mg/dL 0.70-1.20 [facility] Serum globulin measurementOr dered By: Sylwia Gomez on 05-27-2024 Globulin (S) [Mass/Vol] 2.3 g/dL 2.2-4.2 [facility] Serum glucose measurement (m ass/volume)Ordered By: Sylwia Gomez on 05-27-2024 Glucose [Mass/Vol] 100 mg/dL High 70-99 [facility] Serum or plasma alanine schuler otransferase (ALT) measurementOrdered By: Sylwia Gomez on 05-27-2024 ALT [Catalytic activity/Vol] 15 U/L <35 [facility] Serum or plasma albumin stephon urement (mass/volume)Ordered By: Sylwia Gomez on 05-27-2024 Albumin [Mass/Vol] 4.8 g/dL 3.4-4.8 [facility] Serum or plasma albumin/glob ulin mass ratioOrdered By: Sylwia Gomez on 05-27-2024 Albumin/Globulin [Mass ratio] 2.0 {ratio} 0.9-2.4 [facility] Serum or plasma alkaline malgorzata sphatase measurementOrdered By: Sylwia Gomez on 05-27-2024 ALP [Catalytic activity/Vol] 31 U/L Low 35-104 [facility] Serum or plasma anion gap de termination (moles/volume)Ordered By: Sylwia Gomez on 05-27-2024 Anion gap [Moles/Vol] 11 mmol/L 5-15 [facility] Serum or plasma calcium stephon urement (mass/volume)Ordered By: Sylwia Gomez on 05-27-2024 Calcium [Mass/Vol] 9.4 mg/dL 7.6-11.0 [facility] Serum or plasma cholesterol in HDL measurement (mass/volume)Ordered By: Sylwia Gomez on 05-27-2024 Cholesterol in HDL [Mass/Vol] 54 mg/dL >40 [facility] Comment on above: National Cholesterol Education Program (NCEP) guidelines:<40 mg/dL: Low HDL-cholesterol (major risk factor for CHD)>= 60 mg/dL: High HDL-cholesterol (negative risk factor for CHD)HDL-cholesterol is affected by a number of factors, e.g. smoking, exercise, hormones, sex and age. Serum or plasma cholesterol measurement (mass/volume)Ordered By: Sylwia Gomez on 05-27-2024 Cholesterol [Mass/Vol] 131 mg/dL <201 [facility] Comment on above: Cholesterol level, D esirable <200 mg/dLBorderline high cholesterol 200-239 mg/dLHigh cholesterol >=240 mg/dLRecommendations of the NCEP Adult Treatment Panel for the following risk-cutoff thresholds for the [place] population. Serum or plasma potassium me asurementOrdered By: Sylwia Gomez on 05-27-2024 Potassium [Moles/Vol] 4.4 mmol/L 3.3-5.1 [facility] Serum or plasma sodium measu rement (moles/volume)Ordered By: Sylwia Gomez on 05-27-2024 Sodium [Moles/Vol] 139 mmol/L 133-145 [facility] Serum or plasma urea nitroge n measurement (mass/volume)Ordered By: Sylwia Gomez on 05-27-2024 Urea nitrogen [Mass/Vol] 20 mg/dL High 4-19 [facility] TSH DL <= 0.005 mIU/L QnOrde red By: Sylwia Gomez on 05-27-2024 Thyroid Stimulating Hormone (TSH) 0.392 uIU/mL 0.300-4.200 [facility] Thyroid Stim Hormone (TSH)on 05-27-2024 TSH 0.392 uIU/mL Normal 0.300-4.200 [facility] Comment on above: Performed By: #### L 501.9520, L500.4100, L500.4050 ####[facility] [id number] [place], [place], [id number] Total proteinOrdered By: Lilibeth Gomez on 05-27-2024 Protein [Mass/Vol] 7.1 g/dL 5.9-8.4 [facility] Triglycerides measurementOrd ered By: Sylwia Gomez on 05-27-2024 Triglyceride [Mass/Vol] 78 mg/dL <199 [facility] Comment on above: The drugs N-Acetylcy steine and Metamizole may falsely depress this assay. Normal range: <150 mg/dLBorderline High: 150-199 mg/dLHigh: 200-499 mg/dLVery High: >500 mg/dL White blood cell (WBC) count Ordered By: Hector Hernandez on 05-27-2024 WBC (Bld) [#/Vol] 4.9 10*3/uL 4.4-11.0 [facility] Breast Limited Unilateralon 05-21-2024 Breast Limited Unilateral [facility] [address] [place], [place] [address] Breast Limited Unilateral MR#: [id number] Acct: [id number] Name: CHASITY PATRICIA Rep #: [id number] : 1955 F 68 From: Jason kay MD PCP: Dr. Hector Hernandez MD Status: REG CLI Study: Breast Limited Unilateral Date of Exam: Exam# [id number] Ordering Dr: Barbara Knott 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 -C PROCEDURE: BREAST LIMITED UNILATERAL REASON FOR [...] Routine Follow-up BI-RADS category: 2 [facility] CC: ROSALIA Knott; Dr. Hector Hernandez MD Repairing Calibrator: Signed Normal [facility] Dexa Bone Density Studyon Dexa Bone Density Study [facility] Imaging Services [address] [place] [address] [id number] Dexa Bone Density Study MR#: [id number] Acct: [id number] Name: CHASITY PATRICIA Rep #: [id number] : 1955 F 68 From: Jason kay MD PCP: Dr. Hector Hernandez MD Status: REG CLI Study: Dexa Bone Density Study Date of Exam: 05/12/24 Exam# [id number] Ordering Dr: Barbara Knott NP, NP -C [...] with a low fracture risk. Reading Location: [id number] CC: ROSALIA Knott; Dr. Hector Hernandez MD Repairing Calibrator: Signed Normal [facility] SCRN MAMM (CAD)W/SOCTT BILATo n 05-12-2024 SCRN MAMM (CAD)W/SCOTT BILAT [facility] Services [address] [place] [address] [id number] SCRN MAMM (CAD)W/SCOTT BILAT MR#: [id number] Acct: [id number] Name: CHASITY PATRICIA Rep #: [id number] : 1955 F 68 From: Jason kay MD PCP: Dr. Hector Hernandez MD Status: DEP CL Study: SCRN MAMM (CAD)W/SCOTT BILAT Date of Exam: 05/02 04/25 Exam# [id number] Ordering Dr: Barbara Knott NP, NP -More ADDENDUM by Dr. Jason Villafuerte MD on 07/01/24 at 0927 This is an addendum report. Comparison is made with prior mammogram dated November 12, 2022. There has been no change. Reading Location: [facility] 07/01/24 0928 Date cc: ROSALIA Knott; Dr. [...] of the results by letter. Reading Location: [facility] CC: ROSALIA Knott; Dr. Hector Hernandez MD Repairing Calibrator: Signed Normal [facility] Internal Medicine Office Vis ito 02-18-2024 Internal Medicine Office Visit [facility] [place] [address] [place] [address] OFFICE VISIT Date of Service: 02/19/24 MR#: [id number] Acct: [id number] Name: CHASITY PATRICIA Rep #: [id number] : 1955 Provider: Dr. 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 (more content not included)... Normal [facility] No Panel InformationOrdered By: Sylwia Gomez on 05-30-2023 Parathyroid Hormone (Intact) 19.8 pg/mL 18.4-80.1 [facility] Vitamin D 25-Hydroxy 37.2 ng/mL [facility] Comment on above: Vitamin D 25(OH) Sta tus Range Deficiency <20 ng/mL (50nmol/L) Insufficiency 20 - 30 ng/mL (50 - 75 nmol/L) Sufficiency 30 - 100 ng/mL (75 - 250 nmol/L) Toxicity >100 ng/mL (>250 nmol/L) Basophil percentageOrdered B y: Sylwia Gomez on 05-29-2023 Bilirubin [Mass/Vol] 0.40 mg/dL 0.20-1.00 [facility] Comment on above: For patients on eltr ombopag therapy, use of Dimension [place] TBIL is not recommended. Chloride [Moles/Vol] 106 mmol/L 98-107 [facility] Cholesterol [Mass/Vol] 152 mg/dL <200 [facility] Comment on above: <200 mg/dL Desirable 200-240 mg/dL Borderline >240 mg/dL High Risk Glucose [Mass/Vol] 109 mg/dL 74-106 [facility] Comment on above: Fasting Glucose resu lt from 100 to 125 mg/dL suggests IMPAIRED HOMEOSTASIS per A.D.A. criteria. Potassium [Moles/Vol] 4.3 mmol/L 3.5-5.1 [facility] Protein [Mass/Vol] 7.7 g/dL 6.4-8.2 [facility] Sodium [Moles/Vol] 139 mmol/L 136-145 [facility] Triglyceride [Mass/Vol] 90 mg/dL <199 [facility] Comment on above: The drugs N-Acetylcy steine and Metamizole may falsely depress this assay.Serum Triglycerides Reference Interval Normal <150 mg/dL Borderline high 150 - 199 mg/dL High 200 - 499 mg/dL Very High > or = 500 mg/dL Laboratory - Chemistry and C hemistry - challengeOrdered By: Sylwia Gomez on 05-29-2023 Albumin/Globulin [Mass ratio] 1.6 {ratio} 0.9-2.4 [facility] ALP [Catalytic activity/Vol] 34 U/L 45-117 [facility] ALT [Catalytic activity/Vol] 23 U/L 13-56 [facility] Cholesterol in HDL [Mass/Vol] 58 mg/dL >40 [facility] Comment on above: The drugs N-Acetylcy steine and Metamizole may falsely depress this assay. Reference Range HDL <40 mg/dL Low HDL Cholesterol HDL >or= 60 mg/dL High HDL Cholesterol Cholesterol in LDL [Mass/Vol] 76 mg/dL 0-130 [facility] CO2 [Moles/Vol] 26.0 mmol/L 21.0-32.0 [facility] Globulin (S) [Mass/Vol] 3.0 g/dL 2.2-4.2 [facility] Urea nitrogen/Creatinine [Mass ratio] 21.9 mg/mg 10-20 [facility] Laboratory - Hematology and Cell countson 05-29-2023 HbA1c (Bld) [Mass fraction] 6.3 % 4.2-6.3 [facility] No Panel InformationOrdered By: Sylwia Gomez on 05-29-2023 Estimated GFR (MDRD) Amer 84 mL/min >60 [facility] Comment on above: GFR Calc Estimated GFR (MDRD) Non-Af Amer 70 mL/min >60 [facility] Comment on above: Non- GFR Calc Urine Microalbumin/Creatinine Ratio 32.7 mg/g CRE <30 [facility] VLDL Cholesterol 18 mg/dL 5-40 [facility] Serum or plasma calcium stephon urement (mass/volume)Ordered By: Sylwia Gomez on 05-29-2023 Calcium [Mass/Vol] 10.2 mg/dL 8.5-10.1 [facility] Serum or plasma creatinine m easurement (mass/volume)Ordered By: Sylwia Gomez on 05-29-2023 Creatinine [Mass/Vol] 0.87 mg/dL 0.55-1.02 [facility] Comment on above: The validity of the calculated GFR & GFRAA in patients over 70 years has not been determined. Clinical correlation is essential. Serum or plasma thyroid stim ulating hormone (TSH) measurement (units/volume)Ordered By: Sylwia Gomez on 05-29-2023 TSH Qn 0.79 uIU/mL 0.358-3.74 [facility] Serum or plasma urea nitroge n measurement (mass/volume)Ordered By: Sylwia Gomez on 05-29-2023 Urea nitrogen [Mass/Vol] 19 mg/dL 7-18 [facility] Thin prep Papanicolaou smear with manual screeningOrdered By: Sylwia Gomez on 05-29-2023 Thin prep Papanicolaou smear with manual screening 4.7 g/dL 3.2-5.0 [facility] Thin prep Papanicolaou smear with manual screening 15 U/L 15-37 [facility] Thin prep Papanicolaou smear with manual screening 7 5-15 [facility] Thin prep Papanicolaou smear with manual screening 16.1 mg/L NO RANGE EST. [facility] Urine creatinine measurement (mass/volume)Ordered By: Sylwia Gomez on 05-29-2023 Creatinine (U) [Mass/Vol] 49.20 mg/dL NO RANGE EST. [facility] SCREENINGon 11-12-2022 [facility] LEVON SCREENINGon 11-07-2021 [facility] Laboratory - Hematology and Cell countson 09-25-2021 HbA1c (Bld) [Mass fraction] 10.2 % [facility] Work Phone: Vital Signs Date Time Vital Sign Value Performing Clinician Facility 11-25-2024 13:35-0400 Body height 165.[address] Hector Hernandez MD Work Phone: [facility] 11-25-2024 13:35-0400 Body mass index (BMI) [Ratio] 33.1 kg/m2 Dr. Hector Hernandez MD Work Phone: [facility] 11-25-2024 13:35-0400 Body weight 90.[address] Hector Hernandez MD Work Phone: [facility] 11-25-2024 13:35-0400 Diastolic blood pressure 83 mm[Hg] Dr. Hector Hernandez MD Work Phone: [facility] 11-25-2024 13:35-0400 Heart rate 67 /min Dr. Hector Hernandez MD Work Phone: [facility] 11-25-2024 13:35-0400 SaO2% (BldA) [Mass fraction] 98 % Dr. Hector Hernandez MD Work Phone: [facility] 11-25-2024 13:35-0400 Systolic blood pressure 150 mm[Hg] Dr. Hector Hernandez MD Work Phone: [facility] 05-27-2024 13:39-0500 Body height 165.[address] Hector Hernandez MD Work Phone: [facility] 05-27-2024 13:39-0500 Body mass index (BMI) [Ratio] 33.1 kg/m2 Dr. Hector Hernandez MD Work Phone: [facility] 05-27-2024 13:39-0500 Body weight 90.[address] Hector Hernandez MD Work Phone: [facility] 05-27-2024 13:39-0500 Diastolic blood pressure 85 mm[Hg] Dr. Hector Hernandez MD Work Phone: [facility] 05-27-2024 13:39-0500 Heart rate 79 /min Dr. Hector Hernandez MD Work Phone: [facility] 05-27-2024 13:39-0500 SaO2% (BldA) [Mass fraction] 99 % Dr. Hector Hernandez MD Work Phone: [facility] 05-27-2024 13:39-0500 Systolic blood pressure 145 mm[Hg] Dr. Hector Hernandez MD Work Phone: [facility] 02-19-2024 12:43-0500 Body mass index (BMI) [Ratio] 32.9 kg/m2 Dr. Hector Hernandez MD Work Phone: [facility] 02-19-2024 12:43-0500 Body temperature 97.2 [degF] Dr. Hector Hernandez MD Work Phone: [facility] 02-19-2024 12:43-0500 Body weight 89.[address] Hector Hernandez MD Work Phone: [facility] 02-19-2024 12:43-0500 Diastolic blood pressure 76 mm[Hg] Dr. Hector Hernandez MD Work Phone: [facility] 02-19-2024 12:43-0500 Heart rate 70 /min Dr. Hector Hernandez MD Work Phone: [facility] 02-19-2024 12:43-0500 Respiratory rate 16 /min Dr. Hector Hernandez MD Work Phone: [facility] 02-19-2024 12:43-0500 SaO2% (BldA) [Mass fraction] 99 % Dr. Hector Hernandez MD Work Phone: [facility] 02-19-2024 12:43-0500 Systolic blood pressure 120 mm[Hg] Dr. Hector Hernandez MD Work Phone: [facility] 05-29-2023 14:00-0500 Body height 165.[address] Chilo Mckeon Work Phone: [facility] 05-29-2023 14:00-0500 Body mass index (BMI) [Ratio] 32.5 kg/m2 Dr. Chilo Mckeon Work Phone: [facility] 05-29-2023 14:00-0500 Body temperature 97.8 [degF] Dr. Chilo Mckeon Work Phone: [facility] 05-29-2023 14:00-0500 Body weight 88.[address] Chilo Mckeon Work Phone: [facility] 05-29-2023 14:00-0500 Diastolic blood pressure 79 mm[Hg] Dr. Chilo Mckeon Work Phone: [facility] 05-29-2023 14:00-0500 Heart rate 72 /min Dr. Chilo Mckeon Work Phone: [facility] 05-29-2023 14:00-0500 Respiratory rate 16 /min Dr. Chilo Mckeon Work Phone: [facility] 05-29-2023 14:00-0500 SaO2% (BldA) [Mass fraction] 98 % Dr. Chilo Mckeon Work Phone: [facility] 05-29-2023 14:00-0500 Systolic blood pressure 132 mm[Hg] Dr. Chilo Mckeon Work Phone: 2(399)983-917693 [place] [address] 02-20-2023 12:57-0500 Body mass index (BMI) [Ratio] 33.3 kg/m2 Dr. Chilo Mckeon Work Phone: 8(240)110-514493 [place] [address] 02-20-2023 12:57-0500 Body temperature 97.8 [degF] Dr. Chilo Mckeon Work Phone: 2(584)994-851193 [place] [address] 02-20-2023 12:57-0500 Body weight 90.[address] Chilo Mckeon Work Phone: 3(800)982-763793 [place] [address] 02-20-2023 12:57-0500 Diastolic blood pressure 82 mm[Hg] Dr. Chilo Mckeon Work Phone: 7(098)554-782093 [place] [address] 02-20-2023 12:57-0500 Heart rate 81 /min Dr. Chilo Mckeon Work Phone: 0(182)190-852646 [place] [address] 02-20-2023 12:57-0500 Respiratory rate 16 /min Dr. Chilo Mckeon Work Phone: 6(610)823-134146 [place] [address] 02-20-2023 12:57-0500 SaO2% (BldA) [Mass fraction] 99 % Dr. Chilo Mckeon Work Phone: 0(970)933-537346 [place] [address] 02-20-2023 12:57-0500 Systolic blood pressure 118 mm[Hg] Dr. Chilo Mckeon Work Phone: [facility] 09-11-2022 09:32-0400 Body temperature 97.59 [degF] Chilo Mckeon MD Work Phone: [facility] 09-11-2022 09:32-0400 Body weight 94.8 kg Chilo Mckeon MD Work Phone: [facility] 09-11-2022 09:32-0400 Diastolic blood pressure 82 mm[Hg] Chilo Mckeon MD Work Phone: [facility] 09-11-2022 09:32-0400 Heart rate 77 /min Chilo Mckeon MD Work Phone: [facility] 09-11-2022 09:32-0400 Respiratory rate 18 /min Chilo Mckeon MD Work Phone: [facility] 09-11-2022 09:32-0400 SaO2% (BldA) [Mass fraction] 97 % Chilo Mckeon MD Work Phone: [facility] 09-11-2022 09:32-0400 Systolic blood pressure 152 mm[Hg] Chilo Mckeon MD Work Phone: [facility] 10-16-2021 10:58-0400 Body weight 91.63 kg Peyton Martins [employer] Work Phone: [facility] 10-16-2021 10:58-0400 Diastolic blood pressure 80 mm[Hg] Peyton Martins [employer] ADMINISTRATOR.[employer] Work Phone: [facility] 10-16-2021 10:58-0400 Heart rate 68 /min Peyton Martins [employer] ADMINISTRATOR.[employer] Work Phone: [facility] 10-16-2021 10:58-0400 Respiratory rate 16 /min Peyton Martins [employer] ADMINISTRATOR.[employer] Work Phone: [facility] 10-16-2021 10:58-0400 SaO2% (BldA) [Mass fraction] 99 % Peyton Martins [employer] ADMINISTRATOR.[employer] Work Phone: [facility] 10-16-2021 10:58-0400 Systolic blood pressure 138 mm[Hg] Peyton Martins [employer] ADMINISTRATOR.RESIDENTIAL CONCIERGE Work Phone: [facility] 09-25-2021 11:19-0400 Body height 165.[address] Chilo Mckeon Work Phone: [facility] Work Phone: 09-25-2021 11:19-0400 Body mass index (BMI) [Ratio] 33.5 kg/m2 Dr. Chilo Mckeon Work Phone: [facility] Work Phone: 09-25-2021 11:19-0400 Body temperature 95.3 [degF] Dr. Chilo Mckeon Work Phone: [facility] Work Phone: 09-25-2021 11:19-0400 Body weight 91.[address] Chilo Mckeon Work Phone: [facility] Work Phone: 09-25-2021 11:19-0400 Diastolic blood pressure 80 mm[Hg] Dr. Chilo Mckeon Work Phone: [facility] Work Phone: 09-25-2021 11:19-0400 Heart rate 73 /min Dr. Chilo Mckeon Work Phone: [facility] Work Phone: 09-25-2021 11:19-0400 Respiratory rate 18 /min Dr. Chilo Mckeon Work Phone: [facility] Work Phone: 09-25-2021 11:19-0400 SaO2% (BldA) [Mass fraction] 100 % Dr. Chilo Mckeon Work Phone: [facility] Work Phone: 09-25-2021 11:19-0400 Systolic blood pressure 140 mm[Hg] Dr. Chilo Mckeon Work Phone: [facility] Work Phone: 06-13-2021 10:32-0400 Diastolic blood pressure 70 mm[Hg] Chilo Mckeon MD Work Phone: [facility] 06-13-2021 10:32-0400 Systolic blood pressure 128 mm[Hg] Chilo Mckeon MD Work Phone: [facility] 06-13-2021 09:46-0400 Body weight 98.43 kg Chilo Mckeon MD Work Phone: [facility] 06-13-2021 09:46-0400 Heart rate 78 /min Chilo Mckeon MD Work Phone: [facility] Encounters Encounter Date Encounter Type Care Provider Facility Start: 11-25-2024 End: 11-25-2024 Patient encounter procedure Sylwia Gomez NP-C -[facility] Work Phone: Start: 11-25-2024 End: 11-25-[address] Hector Hernandez MD Work Phone: [facility] Comment on above: Allied Health Visit (Medication Adherence Outreach/) Start: 08-04-2024 End: 08-04-2024 ambulatory Chilo Mckeon MD Work Phone: [facility] Start: 08-04-2024 End: 08-04-2024 Patient encounter procedure Chilo Mckeon MD Work Phone: [facility] Comment on above: Population Health Na [facility] Outreach [facility] Start: 06-08-2024 End: 06-08-2024 ambulatory Mart Hunt MA [facility] Start: 06-08-2024 End: 06-08-2024 Patient encounter procedure Mart Hunt MA [facility] Comment on above: Population Health Na vigation Outreach ([facility]) Start: 05-27-2024 End: 05-27-2024 Patient encounter procedure Sylwia LINDSEY -[facility] Work Phone: Start: 05-27-2024 End: 05-27-[address] Hector Hernandez MD Work Phone: [facility] Work Phone: Start: 05-27-2024 End: 05-27-2024 ambulatory Hector Hernandez Facility:[facility] Start: 05-21-2024 End: 05-21-2024 Patient encounter procedure Barbara Knott 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-C -[facility] Work Phone: Start: 05-21-2024 End: 05-21-2024 ambulatory Barbara Knott 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 Facility:[facility] Start: 05-12-2024 End: 05-12-2024 Patient encounter procedure Barbara Knott 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-C -Outpatient Bone Densitometry Work Phone: Start: 05-12-2024 End: 05-12-2024 ambulatory Barbara Knott 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 Facility:[facility] Start: 05-05-2024 End: 05-05-2024 ambulatory Mart Hunt MA [facility] Start: 05-05-2024 End: 05-05-2024 Patient encounter procedure Mart Hunt MA [facility] Comment on above: Population Health Na vigation Outreach [facility] Start: 02-21-2024 End: 02-21-2024 ambulatory Mart Hunt MA [facility] Start: 02-21-2024 End: 02-21-2024 Patient encounter procedure Mart Hunt MA [facility] Comment on above: Population Health Na vigation Outreach ([employer] [facility]) Start: 02-19-2024 End: 02-19-[address] Hector Hernandez MD -[facility] Work Phone: Start: 02-19-2024 End: 02-19-2024 ambulatory Hector Hernandez Facility:[facility] Start: 12-25-2023 End: 12-30-2023 ambulatory Chilo Mckeon MD Work Phone: [facility] [place] Start: 10-07-2023 ambulatory Martky Hunt [facility] Start: 10-07-2023 Patient encounter procedure Mart Hunt MA [facility] Comment on above: Population Health Na vigation Outreach [facility] Start: 05-30-2023 End: 05-30-[address] Chilo Mckeon Work Phone: [facility] Work Phone: Start: 05-30-2023 End: 05-30-[address] Chilo Mckeon Work Phone: [facility] Work Phone: Start: 05-29-2023 End: 05-29-[address] Chilo Mckeon Work Phone: [facility] Work Phone: Start: 05-29-2023 End: 05-29-[address] Chilo Mckeon Work Phone: [facility] Work Phone: Start: 02-20-2023 End: 02-20-[address] Cihlo Mckeon Work Phone: [facility] Work Phone: Start: 11-13-2022 Documentation procedure Mammog eugenia Coordinator [facility] Start: 11-13-2022 Letter encounter Mammography Coordinator [facility] Department Start: 11-12-2022 End: 11-12-2022 Subsequent hospital visit by physician Screen Mammo [facility] M[facility] Comment on above: Encounter for screen ing mammogram for breast cancer [Z12.31] Start: 09-11-2022 End: 09-11-2022 Office outpatient visit 25 minutes Chilo Mckeon MD Work Phone: [facility] [place] Comment on above: Type 2 diabetes johnathan itus without complication, with long-term current use of insulin (HCC) (Primary Dx); HTN (hypertension), benign; Mixed hyperlipidemia; GABBIE on CPAP; Vitamin D deficiency; Obesity (BMI 30.0-34.9); Encounter for screening mammogram for breast cancer Start: 08-25-2022 ambulatory Chilo castellanos MD Work Phone: [facility] Start: 08-25-2022 Patient encounter procedure Chilo Mckeon MD Work Phone: [facility] [place] Comment on above: Labs for upcoming ap pointment. Start: 01-04-2022 Telephone encounter Chilo krishnan MD Work Phone: [facility] Comment on above: Release Of Medical R ecords Start: 11-24-2021 End: 11-24-[address] Chilo Mckeon Work Phone: [facility] Work Phone: Start: 11-24-2021 End: 11-24-[address] Chilo Mckeon Work Phone: [facility]-Laboratory, Specimen Start: 11-07-2021 Documentation procedure Mammog eugenia Coordinator [facility] Start: 11-07-2021 Letter encounter Mammography Coordinator [facility] Start: 11-07-2021 End: 11-07-2021 Subsequent hospital visit by physician Screen Mammo [facility] Mammogram Comment on above: Encounter for screen ing mammogram for breast cancer [Z12.31] Start: 10-17-2021 ambulatory Peyton KWOKRESIDENTIAL CONCIERGE Work Phone: [facility] [place] Comment on above: Vitamin D3 Start: 10-16-2021 End: 10-16-2021 Patient encounter procedure Peyton Martins APRN.RESIDENTIAL CONCIERGE Work Phone: [facility] [place] Comment on above: Uncontrolled type 2 diabetes mellitus with hyperglycemia (HCC) (Primary Dx); Encounter for immunization; Encounter for screening mammogram for breast cancer; HTN (hypertension), benign; Mixed hyperlipidemia Start: 09-25-2021 End: 09-25-[address] Chilo Mckeon Work Phone: [facility] Start: 08-11-2021 Refill Chilo castellanos MD Work Phone: [facility] [place] Comment on above: Refill Request Start: 07-25-2021 ambulatory Chilo castellanos MD Work Phone: [facility] Start: 07-25-2021 Patient encounter procedure Chilo Mckeon MD Work Phone: [facility] Comment on above: Requesting a referra l Start: 07-21-2021 ambulatory Chilo castellanos MD Work Phone: [facility] [place] Comment on above: Insulin pen needles Start: 06-13-2021 End: 06-13-2021 Office outpatient visit 25 minutes Chilo Mckeon MD Work Phone: [facility] [place] Comment on above: Uncontrolled type 2 diabetes [...] bi 2-view breast inc cad Peyton Martins APRN.RESIDENTIAL CONCIERGE Work Phone: Start: 10-09-2021 Adult depression scr eening assessment Peyton Martins APRN.RESIDENTIAL CONCIERGE Work Phone: Start: 11-03-2020 Mammography Chilo najera MD Work Phone: Start: 10-07-2020 Adult depression scr eening assessment Chilo Mckeon MD Work Phone: Start: 10-16-2018 Colonoscopy Chilo najera MD Work Phone: Plan of Treatment Date Care Activity Detail Author Start: 10-16-2028 Colonoscopy COLONOSCOPY [facility] Start: 10-16-2028 COLORECTAL CANCER SCREENING COLORECTAL CANCER SCREENING [facility] Start: 10-16-2028 Screening for malign ant neoplasm of colon [facility] Start: 11-27-2026 HPV TESTING HPV TESTING [facility] Start: 11-27-2026 PAP TESTING PAP TESTING [facility] Start: 11-30-2024 Influenza vaccination Influenza Vacc ine (#1) [facility] Start: 09-16-2024 HPV TESTING HPV TESTING [facility] Start: 09-16-2024 PAP TESTING PAP TESTING [facility] Start: 06-22-2024 Urine microalbumin profile [facility] Start: 04-01-2024 Advance Directive Discussion Advance Directive Discussion [facility] Start: 04-01-2024 Medicare Advantage Annual Wellness Visit Medicare Advantage Annual Wellness Visit [facility] Start: 12-01-2023 Covid-19 Vaccine () Covid-19 Vaccine () [facility] Start: 12-01-2023 Influenza vaccination Influenza Vacc ine (#1) [facility] Start: 11-13-2023 Mammography [facility] Start: 11-13-2023 Screening for malign ant neoplasm of breast Mammogram Screening [facility] Start: 09-12-2023 ANNUAL PCP TEAM MINERALOGY TEACHER SABINE DISEASE VISIT ANNUAL PCP TEAM CHRONIC DISEASE VISIT [facility] Start: 09-12-2023 COVID-19 VACCINE (4 - Booster for Moderna series) COVID-19 VACCINE (4 - Booster for Moderna series) [facility] Comment on above: Postponed from 05/23 (Declined at this time) Start: 09-12-2023 COVID-19 VACCINE (4 - Moderna series) COVID-19 VACCINE (4 - Moderna series) [facility] Comment on above: Postponed from 05/23 (Declined at this time) Start: 09-12-2023 SHINGRIX VACCINE (1 of 2) SHINGRIX VACCINE (1 of 2) [facility] Comment on above: Postponed from 12/29 (Declined at this time) Start: 09-06-2023 Hepatitis B screening URINE AL BUMIN:CREATININE RATIO [facility] Start: 09-06-2023 Hepatitis B surface antibody level LDL CHOLESTEROL [facility] Start: 04-24-2023 Shingrix Vaccine (2 of 2) Shingrix Vaccine (2 of 2) [facility] Start: 04-01-2023 Advance Directive Discussion Advance Directive Discussion [facility] Start: 04-01-2023 Behavioral Health Screening Behavioral Health Screening [facility] Start: 03-13-2023 End: 05-13-2023 25-hydroxyvitamin D3 [Mass/volume] in Serum or Plasma VITAMIN D 25 HYDROXY Lab Routine Vitamin D deficiency Expected: 03/13/2023 (Approximate), Expires: 05/13/2023 [facility] Work Phone: Comment on above: Expected: 03/13/2023 (Approximate), Expires: 05/13/2023 Start: 03-13-2023 End: 05-13-2023 ALBUMIN/CREAT RATIO RND UR ALBUMIN/CREAT RATIO RND UR Lab Routine Type 2 diabetes mellitus without complication, with long-term current use of insulin (HCC) Expected: 03/13/2023 (Approximate), Expires: 05/13/2023 [facility] Work Phone: Comment on above: Expected: 03/13/2023 (Approximate), Expires: 05/13/2023 Start: 03-13-2023 End: 05-13-2023 CBC panel - Blood by Automated count CBC Lab Routine Type 2 diabetes mellitus without complication, with long-term current use of insulin (HCC) HTN (hypertension), benign Expected: 03/13/2023 (Approximate), Expires: 05/13/2023 [facility] Work Phone: Comment on above: Expected: 03/13/2023 (Approximate), Expires: 05/13/2023 Start: 03-13-2023 End: 05-13-2023 Comprehensive metabolic 2000 panel - Serum or Plasma COMP METABOLIC PANEL Lab Routine Type 2 diabetes mellitus without complication, with long-term current use of insulin (HCC) HTN (hypertension), benign Expected: 03/13/2023 (Approximate), Expires: 05/13/2023 [facility] Work Phone: Comment on above: Expected: 03/13/2023 (Approximate), Expires: 05/13/2023 Start: 03-13-2023 End: 05-13-2023 Hemoglobin A1c in Blood HGB A1C Lab Routine Type 2 diabetes mellitus without complication, with long-term current use of insulin (HCC) Expected: 03/13/2023 (Approximate), Expires: 05/13/2023 [facility] Work Phone: Comment on above: Expected: 03/13/2023 (Approximate), Expires: 05/13/2023 Start: 03-13-2023 End: 05-13-2023 Lipid 1996 panel - Serum or Plasma LIPID PANEL BASIC Lab Routine Mixed hyperlipidemia Expected: 03/13/2023 (Approximate), Expires: 05/13/2023 [facility] Work Phone: Comment on above: Expected: 03/13/2023 (Approximate), Expires: 05/13/2023 Start: 03-07-2023 Hemoglobin A1c measurement HbA1C [facility] Start: 03-07-2023 Hemoglobin A1c/Hemoglobin.total in Blood HBA1C [facility] Start: 2022 Advance Directive Discussion Advance Directive Discussion [facility] Start: 2022 Bone Density Screening Bone Density Screening [facility] Start: 2022 Screening for osteoporosis Bone Density Screening [facility] Start: 12-08-2022 Glaucoma screening Dilated Retinal E xam [facility] Start: 12-08-2022 Hepatitis C antibody , confirmatory test DILATED RETINAL EXAM [facility] Start: 11-30-2022 Covid-19 Vaccine ( season) Covid-19 Vaccine ( season) [facility] Start: 11-30-2022 Influenza vaccination C [facility] Start: 11-07-2022 Mammography MAMMOGRAM [facility] Start: 10-16-2022 3 comp foot exam completed DIABETIC FOOT EXAM [facility] Start: 10-16-2022 Diabetic foot examination Diabetic Foot Exam [facility] Start: 10-09-2022 Adult depression screening assessment DEPRESSION SCREENING [facility] Start: 09-06-2022 End: 11-06-2022 25-hydroxyvitamin D3 [Mass/volume] in Serum or Plasma VITAMIN D 25 HYDROXY Lab Routine Vitamin D deficiency Encounter for therapeutic drug monitoring Expected: 09/06/2022, Expires: 11/06/2022 [facility] Work Phone: Comment on above: Expected: 09/06/2022 , Expires: 11/06/2022 Start: 09-06-2022 End: 11-06-2022 ALBUMIN/CREAT RATIO RND UR ALBUMIN/CREAT RATIO RND UR Lab Routine Uncontrolled type 2 diabetes mellitus with hyperglycemia (HCC) Encounter for therapeutic drug monitoring Expected: 09/06/2022, Expires: 11/06/2022 [facility] Work Phone: Comment on above: Expected: 09/06/2022 , Expires: 11/06/2022 Start: 09-06-2022 End: 11-06-2022 CBC W Auto Differential panel - Blood CBC + DIFF Lab Routine Encounter for therapeutic drug monitoring Expected: 09/06/2022, Expires: 11/06/2022 [facility] Work Phone: Comment on above: Expected: 09/06/2022 , Expires: 11/06/2022 Start: 09-06-2022 End: 11-06-2022 Comprehensive metabolic 2000 panel - Serum or Plasma COMP METABOLIC PANEL Lab Routine Encounter for therapeutic drug monitoring Expected: 09/06/2022, Expires: 11/06/2022 [facility] Work Phone: Comment on above: Expected: 09/06/2022 , Expires: 11/06/2022 Start: 09-06-2022 End: 11-06-2022 Hemoglobin A1c in Blood HGB A1C Lab Routine Uncontrolled type 2 diabetes mellitus with hyperglycemia (HCC) Encounter for therapeutic drug monitoring Expected: 09/06/2022, Expires: 11/06/2022 [facility] Work Phone: Comment on above: Expected: 09/06/2022 , Expires: 11/06/2022 Start: 09-06-2022 End: 11-06-2022 Lipid 1996 panel - Serum or Plasma LIPID PANEL BASIC Lab Routine Mixed hyperlipidemia Encounter for therapeutic drug monitoring Expected: 09/06/2022, Expires: 11/06/2022 [facility] Work Phone: Comment on above: Expected: 09/06/2022 , Expires: 11/06/2022 Start: 06-13-2022 ANNUAL PCP TEAM MINERALOGY TEACHER SABINE DISEASE VISIT ANNUAL PCP TEAM CHRONIC DISEASE VISIT [facility] Start: 06-13-2022 BP CONTROLLED (<130/80) BP CONTROLLE D (<130/80) [facility] Start: 06-13-2022 SHINGRIX VACCINE (1 of 2) SHINGRIX VACCINE (1 of 2) [facility] Comment on above: Postponed from 12/29 (Declined at this time) Start: 06-12-2022 Hepatitis B surface antibody level LDL CHOLESTEROL [facility] Start: 05-16-2022 Hemoglobin A1c/Hemoglobin.total in Blood HBA1C [facility] Start: 04-01-2022 DEPRESSION ASSESSMENT DEPRESSION ASS ESSMENT [facility] Start: 01-16-2022 End: 03-18-2022 Hemoglobin A1c in Blood HGB A1C Lab Routine Uncontrolled type 2 diabetes mellitus with hyperglycemia (HCC) Expected: 01/16/2022, Expires: 03/18/2022 [facility] Work Phone: Comment on above: Expected: 01/16/2022 , Expires: 03/18/2022 Start: 01-13-2022 Hemoglobin A1c/Hemoglobin.total in Blood HBA1C [facility] Start: 12-06-2021 Hepatitis C antibody , confirmatory test DILATED RETINAL EXAM [facility] Start: 11-30-2021 Influenza vaccination INFLUENZA (#1) [facility] Start: 11-03-2021 Mammography MAMMOGRAM [facility] Start: 10-16-2021 End: 12-16-2021 ALBUMIN/CREAT RATIO RND UR ALBUMIN/CREAT RATIO RND UR Lab Routine Uncontrolled type 2 diabetes mellitus with hyperglycemia (HCC) Expected: 10/16/2021, Expires: 12/16/2021 [facility] Work Phone: Comment on above: Expected: 10/16/2021 , Expires: 12/16/2021 Start: 10-16-2021 End: 12-16-2021 Lipid 1996 panel - Serum or Plasma LIPID PANEL BASIC Lab Routine Uncontrolled type 2 diabetes mellitus with hyperglycemia (HCC) Expected: 10/16/2021, Expires: 12/16/2021 [facility] Work Phone: Comment on above: Expected: 10/16/2021 , Expires: 12/16/2021 Start: 10-13-2021 End: 12-13-2021 Basic metabolic 2000 panel - Serum or Plasma BASIC METABOLIC PNL Lab Routine Uncontrolled type 2 diabetes mellitus with hyperglycemia (HCC) Expected: 10/13/2021 (Approximate), Expires: 12/13/2021 [facility] Work Phone: Comment on above: Expected: 10/13/2021 (Approximate), Expires: 12/13/2021 Start: 10-13-2021 End: 12-13-2021 Hemoglobin A1c/Hemoglobin.total in Blood HGB A1C Lab Routine Uncontrolled type 2 diabetes mellitus with hyperglycemia (HCC) Expected: 10/13/2021 (Approximate), Expires: 12/13/2021 [facility] Work Phone: Comment on above: Expected: 10/13/2021 (Approximate), Expires: 12/13/2021 Start: 10-10-2021 3 comp foot exam completed DIABETIC FOOT EXAM [facility] Start: 10-07-2021 Adult depression screening assessment DEPRESSION SCREENING [facility] Start: 09-12-2021 Hemoglobin A1c/Hemoglobin.total in Blood HBA1C [facility] Start: 07-27-2021 COVID-19 VACCINE (4 - Booster for Moderna series) COVID-19 VACCINE (4 - Booster for Moderna series) [facility] Start: 06-28-2021 Hepatitis B screening URINE AL BUMIN:CREATININE RATIO [facility] Start: 05-23-2021 COVID-19 VACCINE (4 - Booster for Moderna series) COVID-19 VACCINE (4 - Booster for Moderna series) [facility] Start: 04-01-2021 DEPRESSION ASSESSMENT DEPRESSION ASS ESSMENT [facility] Start: 2017 Hepatitis B Vaccine (1 of 3 - Risk 3-dose series) Hepatitis B Vaccine (1 of 3 - Risk 3-dose series) [facility] Start: 2017 RSV Vaccine (1 - 1-d ose 60+ series) RSV Vaccine (1 - 1-dose 60+ series) [facility] Start: 2017 RSV Vaccine (1 - Ris k 60-74 years 1-dose series) RSV Vaccine (1 - Risk 60-74 years 1-dose series) [facility] Start: 04-25-2013 PNEUMOCOCCAL (2 - PCV) PNEUMOCOCCAL (2 - PCV) [facility] Start: 12-30-2007 SHINGRIX VACCINE (1 of 2) SHINGRIX VACCINE (1 of 2) [facility] Start: 2002 COLOGUARD (FIT-DNA) COLOGUARD (FIT-D NA) [facility] Start: [address] COLONOGRAPHY [facility] Start: 2002 FECAL OCCULT BLOOD FECAL OCCULT BLOO D [facility] Start: 2002 Screening for malign ant neoplasm of colon [facility] Start: 2002 SIGMOIDOSCOPY SIGMOIDOSCOPY [facility] Start: 12-30-1975 BP CONTROLLED (<130/80) BP CONTROLLE D (<130/80) [facility] Start: 12-30-1975 Depression Screening Depression Scre ening [facility] 25-hydroxyvitamin D3 [Mass/volume] in Serum or Plasma VITAMIN D 25 HYDROXY Lab Routine Vitamin D deficiency Encounter for therapeutic drug monitoring 09/05/2022 12:50 PM EDT [facility] Work Phone: ALBUMIN/CREAT RATIO RND UR ALBUMIN/CREAT RATIO RND UR Lab Routine Uncontrolled type 2 diabetes mellitus with hyperglycemia (HCC) Encounter for therapeutic drug monitoring 09/05/2022 12:50 PM EDT [facility] Work Phone: CBC W Auto Different ial panel - Blood CBC + DIFF Lab Routine Encounter for therapeutic drug monitoring 09/05/2022 12:50 PM T [facility] Work Phone: Comprehensive metabo lic 2000 panel - Serum or Plasma COMP METABOLIC PANEL Lab Routine Encounter for therapeutic drug monitoring 09/05/2022 12:50 PM T [facility] Work Phone: End: 01-23-2025 DBT Breast - bilateral screening [facility] SCREENING [facility] Routine Encounter for screening mammogram for breast cancer 1 Occurrences starting 12/25/2023 until 01/23/2025 [facility] Work Phone: Comment on above: 1 Occurrences starti ng 12/25/2023 until 01/23/2025 Hemoglobin A1c in Blood HGB A1C Lab Routine Uncontrolled type 2 diabetes mellitus with hyperglycemia (HCC) Encounter for therapeutic drug monitoring 09/05/2022 12:50 PM EDT [facility] Work Phone: Lipid 1996 panel - Serum or Plasma LIPID PANEL BASIC Lab Routine Mixed hyperlipidemia Encounter for therapeutic drug monitoring 09/05/2022 12:50 PM EDT [facility] Work Phone: End: 10-11-2023 [facility] SCREENING [facility] SCREENING Radiology Routine Encounter for screening mammogram for breast cancer 1 Occurrences starting 09/11/2022 until 10/11/2023 [facility] Work Phone: Comment on above: 1 Occurrences starti ng 09/11/2022 until 10/11/2023 Path report.final Dx Spec [facility] Work Phone: PFIZER-BIONTECH COVID-19 VACCINE, AGE 12+ YR ([place]CDOWELL TOP) P[employer]ER-BION[employer] COVID-19 VACCINE, AGE 12+ YR (MCDOWELL TOP) Immunization/Injection Routine Encounter for immunization 1 Occurrences starting 10/16/2021 [facility] Work Phone: Comment on above: 1 Occurrences starti ng 10/16/2021 End: 11-15-2022 Screening mammography bi 2-view breast inc cad [facility] SCREENING Radiology Routine Encounter for screening mammogram for breast cancer 1 Occurrences starting 10/16/2021 until 11/15/2022 [facility] Work Phone: Comment on above: 1 Occurrences starti ng 10/16/2021 until 11/15/2022 [facility] Immunizations Immunization Date Immunization Notes Care Provider Fa [facility] 03-12-2024 influenza, seasonal, injectable Martky Hunt [facility] 03-12-2024 respiratory syncytia l virus (RSV) vaccine, adjuvanted (AREXVY) [facility] influenza virus vacc ine, unspecified formulation Hector Hernandez MD Work Phone: [facility] 02-27-2023 influenza, injectabl e, quadrivalent, preservative free Dr. Hector [facility] MD [facility] [facility] 02-27-[address] Hector Hernandez MD Work Phone: [facility] 02-20-2023 pneumococcal polysaccharide vaccine, [address] Chilo Mckeon Work Phone: [facility] 10-16-2021 pneumococcal (PCV20) vaccine, 20 valent (PREVNAR 20) Peyton Martins APRN.RESIDENTIAL CONCIERGE Work Phone: [facility] Work Phone: 10-16-2021 pneumococcal Conjuga te, unspecified formulation [facility] [employer] ADMINISTRATOR.RESIDENTIAL CONCIERGE Work Phone: [facility] Work Phone: 03-28-2021 COVID-19 vaccine, booster dose (MODERNA) Chilo Mckeon MD Work Phone: [facility] Work Phone: 03-03-2021 influenza, injectabl e, quadrivalent, contains preservative Chilo Mckeon MD Work Phone: [facility] 03-03-2021 influenza, injectabl e, quadrivalent, preservative free Dr. Chilo Mckeon Work Phone: [facility] 03-03-2021 influenza virus vacc ine, unspecified formulation Screen Wstr [facility] 06-24-2020 COVID-19 vaccine, fu ll dose (MODERNA) Chilo Mckeon MD Work Phone: [facility] 05-28-2020 COVID-19 vaccine, fu ll dose (MODERNA) Chilo Mckeon MD Work Phone: [facility] 01-14-2020 influenza, injectabl e, quadrivalent, preservative free Chilo Mckeon MD Work Phone: [facility] 01-08-2020 influenza, injectabl e, quadrivalent, preservative free Dr. Chilo Mckeon Work Phone: [facility] 01-17-2019 Influenza, injectabl e, Madin [facility] Canine Kidney, preservative free, quadrivalent Chilo Mckeon MD Work Phone: [facility] Work Phone: 01-17-2019 influenza, injectabl e, quadrivalent, preservative free Dr. Chilo Mckeon Work Phone: [facility] 01-06-2018 influenza, injectabl e, quadrivalent, contains preservative Chilo Mckeon MD Work Phone: [facility] 01-06-2018 influenza, injectabl e, quadrivalent, preservative free Dr. Chilo Mckeon Work Phone: [facility] 11-14-2016 influenza, injectabl e, quadrivalent, preservative free Dr. Chilo Mckeon Work Phone: [facility] 11-14-2016 influenza, seasonal, injectable Chilo Mckeon MD Work Phone: [facility] Work Phone: 01-06-2016 influenza, injectabl e, quadrivalent, contains preservative Chilo Mckeon MD Work Phone: [facility] 01-06-2016 influenza, injectabl e, quadrivalent, preservative free Dr. Chilo Mckeon Work Phone: [facility] 08-31-2015 hepatitis A vaccine, adult dosage Chilo Mckeon MD Work Phone: [facility] 06-22-2014 hepatitis A vaccine, adult dosage Chilo Mckeon MD Work Phone: [facility] 06-22-2014 measles, mumps and rubella virus vaccine Chilo Mckeon MD Work Phone: [facility] 06-22-2014 tetanus toxoid, redu tsering diphtheria toxoid, and acellular pertussis vaccine, adsorbed Chilo Mckeon MD Work Phone: [facility] 06-22-2014 typhoid vaccine, parenteral, other than acetone-killed, dried Chilo Mckeon MD Work Phone: [facility] 06-22-[address] Chilo Mckeon Work Phone: [facility] 04-25-2012 pneumococcal polysaccharide vaccine, 23 valent Chilo Mckeon MD Work Phone: [facility] 12-18-2011 influenza virus vacc ine, unspecified formulation Chilo Mckeon MD Work Phone: [facility] 02-22-2009 novel influenza-H1N1 -09, preservative-free, injectable Dr. Chilo Mckeon Work Phone: [facility] 02-25-2006 tetanus and diphther ia toxoids, not adsorbed, for adult use Chilo Mckeon MD Work Phone: [facility] 08-19-2000 hepatitis B immune globulin Chilo Mckeon MD Work Phone: [facility] 03-29-2000 hepatitis B immune globulin Chilo Mckeon MD Work Phone: [facility] 01-22-2000 hepatitis B immune globulin Chilo Mckeon MD Work Phone: [facility] Payers Date Payer Category Payer Self-pay [id number] 2023 Medicare [id number] 2022 Medicare HUMANA MEDICARE HUMANA GOLD PLUS [id number] 2022-Present [phone] [place] [id number] [facility] [id number] 2022 Medicare (Managed Care) HUMANA G OLD PLUS [id number] 2018 Unknown MMO MMO SUPERMED PLUS [id number] 2018-Present [phone] [address] [place] [address] PPO [id number] 2018 Unknown [id number] Unknown MEDICAL [facility] [id number] Unknown [id number] Unknown [id number] Unknown [id number] Unknown [id number] Unknown [id number] Unknown [id number] Social History Date Type Detail Facility Start: 10-22-2011 End: 10-02-2023 Tobacco smoking status AZIS Never smoked tobacco [facility] Start: 10-22-2011 Tobacco use and exposure Smoke less tobacco non-user [facility] Start: 06-13-2021 End: 10-16-2021 Alcohol intake Not Asked [facility] Start: 05-25-2019 End: 09-10-2022 History SDOH Alcohol Frequency 2 [facility] Start: 05-25-2019 End: 09-10-2022 History SDOH Alcohol Std Drinks 1 [facility] Start: 05-25-2019 End: 09-10-2022 History SDOH Social Connections Phone 5 [facility] Start: 05-25-2019 End: 09-10-2022 History SDOH Social Connections [facility] 3 [facility] Start: 05-25-2019 Education 18 [facility] Start: 1955 Sex Assigned At Female [facility] Start: 06-03-2021 End: 11-07-2021 Exposure to SARS-CoV-2 (event) Not sure [facility] Start: 09-25-2021 End: 05-29-2023 Tobacco smoking status AZIS Unknown if ever smoked [facility] Start: 09-11-2022 Alcohol intake Current drinke r of alcohol (finding) [facility] Start: 09-11-2022 Alcohol Comment Socially [facility] Start: 09-10-2022 End: 09-11-2022 History of Social function [facility] Start: 09-10-2022 End: 09-11-2022 Social connection and isolation panel [facility] Do you belong to any clubs or organizations such as sabianism groups, unions, fraternal or athletic groups, or school groups? Yes [facility] Are you now , , , , never or living with a partner? [facility] How often to you hav e a drink containing alcohol? Monthly or less [facility] How many standard dr inks containing alcohol do you have on a typical day? 1 or 2 [facility] How often do you hav e 6 or more drinks on 1 occasion? Never [facility] Start: 03-02-2012 How hard is it for y ou to pay for the very basics like food, housing, medical care, and heating Not hard at all [facility] Do you feel stress - tense, restless, nervous, or anxious, or unable to sleep at night because your mind is troubled all the time - these days [OSQ] Not at all [facility] (I/We) worried tr er (my/our) food would run out before (I/we) got money to buy more. Never true [facility] In the past 12 month s, was there a time when you were not able to pay the mortgage or rent on time? No [facility] Start: 10-28-2020 Gender identity Identifies as female gender (finding) [facility] Start: 06-09-2024 Sex Female (finding) [facility] Medical Equipment Procedure Code Equipment Code Equipment Original Text Equipment Identifier Dates [id number] Start: 10-10-2020 End: 07-24-2021 Comment on above: [...] 08/27/2014 10:29 AM Aleida Lopez RN No [facility] 08-27-2014 Are you blind, or do you have serious difficulty seeing, even when wearing glasses No 08/27/2014 10:29 AM Aleida Lopez RN No [facility] 08-27-2014 Do you have serious difficulty walking or climbing stairs No 08/27/2014 10:29 AM Aleida Lopez RN No [facility] 08-27-2014 Do you have difficul ty dressing or bathing No 08/27/2014 10:29 AM Aleida Lopez RN No [facility] 08-27-2014 Because of a physica l, mental, or emotional condition, do you have difficulty doing errands alone such as visiting a physician's office or shopping No 08/27/2014 10:29 AM Aleida Lopez RN No [facility] Mental Status Date Assessment Result Facility 08-27-2014 Because of a physica l, mental, or emotional condition, do you have serious difficulty concentrating, remembering, or making decisions No 08/27/2014 10:29 AM Aleida Lopez RN No [facility] Clinical Notes 11-07-2012 to 11-25-2024 Sofia Thorne CPhT - 11/25/2024 11:15 AM Nidia Salter - 08/04/2024 9:41 AM Mart Silva MA - 06/08/2024 2:28 PM Mart Silva MA - 05/05/2024 1:41 PM EST Note Date & Type Note Facility 11-25-2024 Note HNO ID: [id number] Author: SOFIA THORNE CPhT Service: ? Author Type: Chucker Type: Progress Notes Filed: 11/25/2024 11:15 Note Text: Patient is identified through a medication adherence outreach initiative based on pharmacy claims data from: [employer] Medication Adherence Category: Hypertension First Review Attribution Status: Questionable attribution, Pt clearly transitioned care away from [facility] Sofia Thorne CPhT [facility] Based Care Pharmacy Team [facility] 11-25-2024 History of Present illness Narrative Patient is identified through a medication adherence outreach initiative based on pharmacy claims data from: [facility] Medication Adherence Category: Hypertension First Review Attribution Status: Questionable attribution, Pt clearly transitioned care away from [facility] Sofia Thorne CPhT [facility] Based Care Pharmacy Team documented in this encounter [facility] 11-25-2024 Note Patient Outreach ([facility]) CHASITY PATRICIA ([id number]) 1955 F Date Time Provider Department 11/25/24 HECTOR HERNANDEZ During your visit today, we recorded the following information about you: Sofia Thorne CPhT 11/25/2024 11:15 AM Signed Patient is identified through a medication adherence outreach initiative based on pharmacy claims data from: [employer] Medication Adherence Category: Hypertension First Review Attribution Status: Questionable attribution, Pt clearly transitioned care away from [facility] Sofia Thorne CPhT Value Based Care Pharmacy [...] Take 1 tablet by mouth once daily. ID#[id number] - metoprolol succinate ER (TOPROL XL) 50 mg 24 hr tablet Take 1 tablet by mouth once daily. - metFORMIN ER (GLUCOPHAGE XR) 500 mg 24 hr tablet Take 2 tablets by mouth twice daily. ID#[id number] As directed - cholecalciferol, vitamin D3, (VITAMIN D3 ORAL) Take 5,000 Units by mouth once daily. Taking 3 capsules once daily - SEMGLEE,INSULIN GLARG-YFGN,PEN 100 unit/mL (3 mL) insulin pen Inject 36 Units subcutaneously. - rosuvastatin (CRESTOR) 5 mg tablet Take 1 tablet by mouth daily at bedtime. - Insulin [place], Disposable, (BD ULTRA-FINE JAZ PEN NEEDLE) 32 [...] Encounter Status:Closed by SOFIA THORNE on 11/25/24 [facility] 08-10-2024 Note HNO ID: [id number] Author: ?, ?, ? Service: ? Author [...] Nidia Elmore August 10, 2024 9:29 AM [facility] 08-04-2024 Note HNO ID: [id number] Author: ?, ?, ? Service: ? Author [...] Diaz Pss August 04, 2024 9:42 AM [facility] 08-04-2024 History of Present illness Narrative [...] 2024 9:42 AM documented in this encounter [facility] 08-04-2024 Note Patient Outreach (NE TNAV) CHASITY PATRICIA ([id number]) 1955 F Date Time Provider Department 08/04/24 [...] Take 1 tablet by mouth once daily. ID#[id number] - metoprolol succinate ER (TOPROL XL) 50 mg 24 hr tablet Take 1 tablet by mouth once daily. - metFORMIN ER (GLUCOPHAGE XR) 500 mg 24 hr tablet Take 2 tablets by mouth twice daily. ID#[id number] As directed - cholecalciferol, vitamin D3, (VITAMIN D3 ORAL) Take 5,000 Units by mouth once daily. Taking 3 capsules once daily - SEMGLEE,INSULIN GLARG-YFGN,PEN 100 unit/mL (3 mL) insulin pen Inject 36 Units subcutaneously. - rosuvastatin (CRESTOR) 5 mg tablet Take 1 tablet by mouth daily at bedtime. - Insulin [place], Disposable, (BD ULTRA-FINE JAZ PEN NEEDLE) 32 [...] Encounter Status:Closed by NIDIA DOZIER on 08/04/24 [facility] 06-08-2024 Note HNO ID: [id number] Author: MART HUNT MA Service: ? Author Type: Cena Type: Progress Notes Filed: 06/08/2024 14:29 Note Text: POPULATION HEALTH NAVIGATION OUTREACH Action/ msg to schedule wellness, hcc gap closure, ked/ uacr and bmp and [id number] pended as I didn't speak to the patient , diabetic retinal eye exam, mammogram, bp to be addressed as not compliant not <130/80 Reason for Outreach Care Gap/HCC or Scheduling Wellness Visits Care Gaps due: Medicare Annual Wellness Visit Breast Cancer Screening Controlling Blood Pressure Diabetic Eye Exam HBA1C KED Patient Contacted: Unable or unnecessary to reach patient: Left message [email or web address] message sent HCC related Navigation Signature: Mart Hunt MA June 08, 2024 2:28 PM [facility] 06-08-2024 History of Present illness Narrative POPULATION HEALTH NAVIGATION OUTREACH Action/FYI msg to schedule wellness, hcc gap closure, ked/ uacr and bmp and [id number] pended as I didn't speak to the patient , diabetic retinal eye exam, mammogram, bp to be addressed as not compliant not <130/80 Reason for Outreach Care Gap/HCC or Scheduling Wellness Visits Care Gaps due: Medicare Annual Wellness Visit Breast Cancer Screening Controlling Blood Pressure Diabetic Eye Exam HBA1C KED Patient Contacted: Unable or unnecessary to reach patient: Left message [email or web address] message sent HCC related Navigation Signature: Mart Hunt MA June 08, 2024 2:28 PM documented in this encounter [facility] 06-08-2024 Note Patient Outreach (LEIGHA MORALES) CHASITY PATRICIA ([id number]) 1955 F Date Time Provider Department 06/08/24 MART HUNT During your visit today, we recorded the following information about you: Mart Hunt MA 06/08/2024 2:29 PM Signed POPULATION HEALTH NAVIGATION OUTREACH Action/FYI msg to schedule wellness, hcc gap closure, ked/ uacr and bmp and [id number] pended as I didn't speak to the patient , diabetic retinal eye exam, mammogram, bp to be addressed as not compliant not <130/80 Reason for Outreach Care Gap/HCC or Scheduling Wellness Visits Care Gaps due: Medicare Annual Wellness Visit Breast Cancer Screening Controlling Blood Pressure Diabetic Eye Exam HBA1C KED Patient Contacted: Unable or unnecessary to reach patient: Left message [employer] message sent HCC related Navigation Signature: Mart [...] Take 1 tablet by mouth once daily. ID#[id number] - metoprolol succinate ER (TOPROL XL) 50 mg 24 hr tablet Take 1 tablet by mouth once daily. - metFORMIN ER (GLUCOPHAGE XR) 500 mg 24 hr tablet Take 2 tablets by mouth twice daily. ID#[id number] As directed - cholecalciferol, vitamin D3, (VITAMIN D3 ORAL) Take 5,000 Units by mouth once daily. Taking 3 capsules once daily - SEMGLEE,INSULIN GLARG-YFGN,PEN 100 unit/mL (3 mL) insulin pen Inject 36 Units subcutaneously. - rosuvastatin (CRESTOR) 5 mg tablet Take 1 tablet by mouth daily at bedtime. - Insulin [place], Disposable, (BD ULTRA-FINE JAZ PEN NEEDLE) 32 [...] Encounter Status:Closed by MART HUNT on 06/08/24 [facility] 05-05-2024 Note HNO ID: [id number] Author: MART HUNT MA Service: ? Author Type: Cena Type: Progress Notes Filed: 05/05/2024 13:43 Note [...] or unnecessary to reach patient: Left message [email or web address] message sent HCC related Navigation Signature: Mart Hunt MA May 05, 2024 1:41 PM [facility] 05-05-2024 History of Present illness Narrative [...] or unnecessary to reach patient: Left message [email or web address] message sent HCC related Navigation Signature: Mart Hunt MA May 05, 2024 1:41 PM documented in this encounter [facility] 05-05-2024 Note Patient Outreach (NE TNAV) CHASITY PATRICIA ([id number]) 1955 F Date Time Provider Department 05/05/24 [...] or unnecessary to reach patient: Left message [employer] message sent HCC related Navigation Signature: Mart [...] Take 1 tablet by mouth once daily. ID#[id number] - metoprolol succinate ER (TOPROL XL) 50 mg 24 hr tablet Take 1 tablet by mouth once daily. - metFORMIN ER (GLUCOPHAGE XR) 500 mg 24 hr tablet Take 2 tablets by mouth twice daily. ID#[id number] As directed - cholecalciferol, vitamin D3, (VITAMIN D3 ORAL) Take 5,000 Units by mouth once daily. Taking 3 capsules once daily - SEMGLEE,INSULIN GLARG-YFGN,PEN 100 unit/mL (3 mL) insulin pen Inject 36 Units subcutaneously. - rosuvastatin (CRESTOR) 5 mg tablet Take 1 tablet by mouth daily at bedtime. - Insulin [place], Disposable, (BD ULTRA-FINE JAZ PEN NEEDLE) 32 [...] Encounter Status:Closed by MART HUNT on 05/05/24 [facility] 02-21-2024 Note HNO ID: [id number] Author: MART HUNT MA Service: ? Author Type: Cena Type: Progress Notes Filed: 02/21/2024 14:43 Note [...] or unnecessary to reach patient: Left message [employer] message sent HCC related Navigation Signature: Mart Hunt MA February 21, 2024 2:42 PM [facility] 02-21-2024 History of Present illness Narrative [...] or unnecessary to reach patient: Left message [email or web address] message sent HCC related Navigation Signature: Mart Hunt MA February 21, 2024 2:42 PM documented in this encounter [facility] 02-21-2024 Note Patient Outreach (LEIGHA LOWERYAV) CHASITY PATRICIA ([id number]) 1955 F Date Time Provider Department 02/21/24 [...] or unnecessary to reach patient: Left message [email or web address] message sent HCC related Navigation Signature: Mart [...] Take 1 tablet by mouth once daily. ID#[id number] - metoprolol succinate ER (TOPROL XL) 50 mg 24 hr tablet Take 1 tablet by mouth once daily. - metFORMIN ER (GLUCOPHAGE XR) 500 mg 24 hr tablet Take 2 tablets by mouth twice daily. ID#[id number] As directed - cholecalciferol, vitamin D3, (VITAMIN D3 ORAL) Take 5,000 Units by mouth once daily. Taking 3 capsules once daily - SEMGLEE,INSULIN GLARG-YFGN,PEN 100 unit/mL (3 mL) insulin pen Inject 36 Units subcutaneously. - rosuvastatin (CRESTOR) 5 mg tablet Take 1 tablet by mouth daily at bedtime. - Insulin [place], Disposable, (BD ULTRA-FINE JAZ PEN NEEDLE) 32 [...] Encounter Status:Closed by MART HUNT on 02/21/24 [facility] 02-19-2024 Evaluation note Diagnosis Onset Date [...] 1:38pm Obesity chronic May 27, 2024 1:38pm [facility] Work Phone: [phone]) 487-509109-25-2024 NotePatient Outreach (INTMMN) CHASITY PATRICIA ([id number]) 1955 F Date Time Provider Department 12/25/23 CHILO MCKEON INTMMN During your visit today, we recorded the following information about you: Allergies As of Date: 12/25/2023 Noted Allergy Reaction PENICILLINS 04/20/2011 2 - Rash SULFACETAMIDE 04/20/2011 2 - Rash Date Reviewed: 09/11/2022 Reviewed by: Astrid Wellington LPN - Fully Assessed Visit Diagnosis:Encounter for screening mammogram for breast cancer [Z12.31] Order(s):LEVON SCREENING W SCOTT [[id number]] Order #: [id number] FUTURE Prescriptions as of 12/30/2023 - fenofibrate nanocrystallized (TRICOR) 145 mg tablet take 1 tablet daily - tirzepatide (MOUNJARO) 5 mg/0.5 mL pen injector Inject 1 mL subcutaneously one time a week. - losartan (COZAAR) 100 mg tablet Take 1 tablet by mouth once daily. - citalopram (CELEXA) 20 mg tablet Take 1 tablet by mouth once daily. ID#[id number] - metoprolol succinate ER (TOPROL XL) 50 mg 24 hr tablet Take 1 tablet by mouth once daily. - metFORMIN ER (GLUCOPHAGE XR) 500 mg 24 hr tablet Take 2 tablets by mouth twice daily. ID#[id number] As directed - cholecalciferol, vitamin D3, (VITAMIN D3 ORAL) Take 5,000 Units by mouth once daily. Taking 3 capsules once daily - SEMGLEE,INSULIN GLARG-YFGN,PEN 100 unit/mL (3 mL) insulin pen Inject 36 Units subcutaneously. - rosuvastatin (CRESTOR) 5 mg tablet Take 1 tablet by mouth daily at bedtime. - Insulin [place], Disposable, (BD ULTRA-FINE JAZ PEN NEEDLE) 32 [...] 01/22/2018 Encounter Status:Closed by INES HERNANDEZ on 12/30/23[facility] 10-07-2023 History of Present illness Narrative* [...] to reach patient: Unable to leave message [email or web address] message sent HCC related Navigation Signature: Mart Hunt MA October 07, 2023 2:37 PM [facility] Miscellaneous Notes* Letter - Coordinator, Mammography - 11/13/2022 12:16 PM EDT November 14, 2022 PID: [id number] Chasity Patricia [address] [place] [address] Dear Ms. Patricia, We are pleased to [...] report will be kept on file at [facility] as part of your permanent medical record and are available for your continuing care. Thank you for allowing us to help in meeting your health care needs. Sincerely, Dr. Arenas Interpreting Radiologist [facility] (Normal over 40) [facility] History of Present illness Narrative* Felicia [...] 12, 2022 2:06 PM [facility] Miscellaneous Notes* Result Encounter Note - Peyton Martins APRN.CNS - 11/12/2022 2:10 PM EDT Negative, 1 year screening follow-up [facility] History of Past illness Narrative* Problem Noted Date Resolved Date Uncontrolled type 2 diabetes mellitus with hyper glycemia 09/11/2022 documented as of this encounter (statuses as of 09/11/2022) [facility] History of Past illness Narrative* Problem Noted Date Diagnosed Date Resolved Date Uncontrolled type 2 diabetes mellitus with hyperglycemia 09/11/2022 documented as of this encounter (statuses as of 11/15/2022) [facility] History of Past illness Narrative* Problem Noted Date Diagnosed Date Resolved Date Uncontrolled type 2 diabetes mellitus with hyperglycemia 09/11/2022 documented as of this encounter (statuses as of 02/03/2023) [facility] History of Present illness Narrative* Chilo Mckeon MD - 09/11/2022 10:09 AM EDT This note was created using NoteWriter. Subjective Chasity aPtricia is a 66 year old female. Patient presents with: F/U 4 month: Labs Prior SUBJECTIVE: Chasity Patricia is a 66 year old year old lady here today for follow up appointment for review of medical conditions. BPs 140s at home. has been up to 150s in offices. No symptoms of high BP. Eating better since has CGM. 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 Depression Screening 05/25/2019 10/07/2020 10/09/2021 09/11/2022 PHQ-2 [...] Take 1 tablet by mouth once daily. ID#[id number] metoprolol succinate ER (TOPROL XL) 50 mg 24 hr tablet Take 1 tablet by mouth once daily. metFORMIN ER (GLUCOPHAGE XR) 500 mg 24 hr tablet Take 2 tablets by mouth twice daily. ID#[id number] As directed fenofibrate nanocrystallized (TRICOR) 145 mg tablet Take 1 tablet by mouth once daily. ID#[id number] cholecalciferol, vitamin D3, (VITAMIN D3 ORAL) Take 5,000 Units by mouth once daily. Taking 3 capsules once daily SEMGLEE,INSULIN GLARG-YFGN,PEN 100 unit/mL (3 mL) insulin pen Inject 36 Units subcutaneously. rosuvastatin (CRESTOR) 5 mg tablet Take 1 tablet by mouth daily at bedtime. Insulin [place], Disposable, (BD ULTRA-FINE JAZ PEN NEEDLE) 32 [...] with hyperglycemia (HCC) flash glucose sensor (FREESTYLE YTLER 2 SENSOR) kit 1 Each every 2 weeks. (E11.65) Uncontrolled type 2 diabetes mellitus with hyperglycemia (HCC) COMPOUNDED PRESCRIPTION Allergy shots two shots all year long once a week. dulaglutide (TRULICITY) 1.5 mg/0.5 mL pen injector Inject 1.5 mg subcutaneously one time a week. ID#[id number] (Patient taking differently: Inject 3 mg subcutaneously one time a week. ID#[id number] ) No current facility-administered medications for this visit. Review of Systems Objective BP 152/82 Pulse 77 Temp 36.4 C (97.6 F) Resp 18 Wt 94.8 kg (209 lb) LMP 05/16/2011 VsP756% Last 5 Encounter Wt Readings: Date: Wt: [...] Abs Lymph 1.00 - 4.00 k/uL 1.59 [place]% % 7.0 Abs [place] <0.87 k/uL 0.36 Eosin% % 1.6 Abs [...] for screening mammogram for breast cancer Z12.31 [facility] SCREENING ASSESSMENT/PLAN: 1. Type 2 diabetes mellitus [...] for annual exam in one year. - [facility] SCREENING No problem-specific Assessment & Plan notes found for this encounter. documented in this encounterWestern [facility]23 Miscellaneous Notes* Telephone Encounter - Alice Hodge LPN - 08/28/2022 8:59 AM EDT Patient has an appointment 09/11/2022. documented in this encounterWestern [facility] Hospital10-06-2022 Miscellaneous Notes* Telephone Encounter - Bebe Rhodes LPN - 01/04/2022 11:01 AM EDT [place] with [facility] called for recent labs done on pt. Identified pt with name and date of . FAX: [phone]. Faxed thru [facility]. Bebe Rhodes LPN documented in this encounterWestern Reserve Hospital08-09-2022 Miscellaneous Notes* Letter - Mammography Coordinator - 11/07/2021 11:28 AM EDT November 07, 2021 PID: [id number] Chasity Patricia [address] [phone] Dear Ms. Patricia, We are pleased to [...] report will be kept on file at [facility] as part of your permanent medical record and are available for your continuing care. Thank you for allowing us to help in meeting your health care needs. Sincerely, Dr. Arenas Interpreting Radiologist [facility] (Normal over 40) documented in this encounterWestern Reserve Hospital08-09-2022 History of Present illness Narrative* RT [...] 07, 2021 10:40 AM documented in this encounterWestern Reserve Hospital07-19-2022 Miscellaneous Notes* Telephone Encounter - Kate Aguirre LPN - 10/17/2021 2:01 PM EDT Please update. Kate Aguirre LPN documented in this encounterWestern Reserve Hospital07-18-2022 Instructions* Patient Instructions* Peyton Martins APRN.CNS - 10/16/2021 11:32 AM EDT Check lab work in December mammogram documented in this encounterWestern Reserve Hospital07-18-2022 History of Present illness Narrative* Peyton Martins APRN.RESIDENTIAL CONCIERGE - 10/16/2021 10:40 AM EDT Subjective PNEUMOCOCCAL(2 [...] last here she has seen Dr. Scherer, manager field. Has had improvement of diabetes control. Nolonger [...] Take 1 tablet by mouth once daily. ID#[id number] metoprolol succinate ER (TOPROL XL) 50 mg 24 hr tablet Take 1 tablet by mouth once daily. metFORMIN ER (GLUCOPHAGE XR) 500 mg 24 hr tablet Take 2 tablets by mouth twice daily. ID#[id number] As directed Insulin Hamden, Disposable, (BD ULTRA-FINE JAZ PEN NEEDLE) 32 [...] Take 1 tablet by mouth once daily. ID#[id number] flash glucose scanning reader (FREESTYLE TYLER 2 [...] 1.5 mg subcutaneously one time a week. ID#[id number] (Patient taking differently: Inject 3 mg subcutaneously one time a week. ID#[id number] ) COMPOUNDED PRESCRIPTION Allergy shots two shots all year long once a week. cefUROXime (CEFTIN) 500 mg tablet Take 1 tablet by mouth twice daily. Extend course if sinus infection not resolved with 10 days treatment (Patient not taking: Reported on 06/13/2021 ) Blood-Glucose Transmitter ([email or web address] G6 TRANSMITTER) kristal Use to check blood [...] (primary diagnosis) Improved control, seeing Dr. Scherer, manager field. Continue current treatment unchanged. Check labs in 3 months before next visit - ALBUMIN/CREAT RATIO RND UR - HGB A1C - LIPID PANEL BASIC 2. Encounter for immunization - ICD9: V03.89, ICD10: Z23 - PNEUMOCOCCAL VACCINE (PREVNAR 20) - PFIZER-[employer] COVID-19 VACCINE, AGE 12+ YR ([place]LL TOP) [...] Level: 4 - Moderate documented in this encounterWestern Reserve Hospital05-18-2022 Miscellaneous Notes* Telephone Encounter - Melquiades Bruno Ma - 08/16/2021 9:46 AM EDT Notified via SpinNote. * Telephone Encounter - Shabnam Curry APRN.CNP - 08/07/2021 7:29 AM EDT Fax endocrinology consult. I am not sure what she means about not being able to get pen needles, a prescription was sent on 07/24 Shabnam Curry APRN.CNP documented in this encounterWestern Reserve Hospital05-13-2022 Miscellaneous Notes* Telephone Encounter - Cecilia [...] Take 1 tablet by mouth once daily. ID#[id number] SHARATH: No METOPROLOL SUCCINATE ER 50 MG TABLET,EXTENDED RELEASE 24 HR 90 tablet 3 Sig: Take 1 tablet by mouth once daily. SHARATH: No METFORMIN ER 500 MG TABLET,EXTENDED RELEASE 24 HR 360 tablet 3 Sig: Take 2 tablets by mouth twice daily. ID#[id number] As directed SHARATH: No Date of last [...] you. Cecilia Strickland RN documented in this encounterWestern Reserve Hospital04-25-2022 Miscellaneous Notes* Telephone Encounter - Elly Mckeon Ma - 07/24/2021 9:50 AM EDT Pended in refill encounter documented in this encounterWestern Reserve Hospital03-15-2022 History of Present illness Narrative* Chilo [...] Take 1 tablet by mouth once daily. ID#[id number] cefUROXime (CEFTIN) 500 mg tablet Take 1 [...] mellitus with hyperglycemia (HCC) Blood-Glucose Meter,Continuous (DEXCOM SIDE LASTER) misc Use to check blood sugar 4 [...] every morning. Titrate up as directed Insulin [place], Disposable, (BD ULTRA-FINE JAZ PEN NEEDLE) 32 gauge x Use as directed for insulin injections, 1 per day dulaglutide (TRULICITY) 1.5 mg/0.5 mL pen injector Inject 1.5 mg subcutaneously one time a week. ID#[id number] losartan (COZAAR) 50 mg tablet Take 1 tablet by mouth once daily. citalopram (CELEXA) 20 mg tablet Take 1 tablet by mouth once daily. ID#[id number] metoprolol succinate ER (TOPROL XL) 50 mg 24 hr tablet Take 1 tablet by mouth once daily. metFORMIN ER (GLUCOPHAGE XR) 500 mg 24 hr tablet Take 2 tablets by mouth twice daily. ID#[id number] As directed COMPOUNDED PRESCRIPTION Allergy shots two [...] intervention Chilo Mckeon MD documented in this encounterWestern Reserve Hospital08-09-2013 History of Past illness Narrative* Problem Noted Date Resolved Date Type II or unspecified type diabetes mellitus without mention of complication, uncontrolled 11/07/2012 09/24/2017 documented as of this encounter (statuses as of 07/24/2021) [facility] of [facility] illness Narrative* Problem Noted Date Resolved Date Type II or unspecified type diabetes mellitus without mention of complication, uncontrolled 11/07/2012 09/24/2017 documented as of this encounter (statuses as of 08/11/2021) [facility] of [facility] Narrative* Problem Noted Date Resolved Date Type II or unspecified type diabetes mellitus without mention of complication, uncontrolled 11/07/2012 09/24/2017 documented as of this encounter (statuses as of 08/16/2021) [facility] of [facility] Narrative* Problem Noted Date Resolved Date Type II or unspecified type diabetes mellitus without mention of complication, uncontrolled 11/07/2012 09/24/2017 documented as of this encounter (statuses as of 09/05/2021) [facility] of [facility] Narrative* Problem Noted Date Resolved Date Type II or unspecified type diabetes mellitus without mention of complication, uncontrolled 11/07/2012 09/24/2017 documented as of this encounter (statuses as of 10/16/2021) [facility] of [facility] Narrative* Problem Noted Date Resolved Date Type II or unspecified type diabetes mellitus without mention of complication, uncontrolled 11/07/2012 09/24/2017 documented as of this encounter (statuses as of 10/18/2021) [facility] Narrative* Problem Noted Date Resolved Date Type II or unspecified type diabetes mellitus without mention of complication, uncontrolled 11/07/2012 09/24/2017 documented as of this encounter (statuses as of 11/08/2021) [facility] Narrative* Problem Noted Date Resolved Date Type II or unspecified type diabetes mellitus without mention of complication, uncontrolled 11/07/2012 09/24/2017 documented as of this encounter (statuses as of 11/09/2021) [facility] Narrative* Problem Noted Date Resolved Date Type II or unspecified type diabetes mellitus without mention of complication, uncontrolled 11/07/2012 09/24/2017 documented as of this encounter (statuses as of 01/04/2022) [facility] Narrative* Problem Noted Date Resolved Date Type II or unspecified type diabetes mellitus without mention of complication, uncontrolled 11/07/2012 09/24/2017 documented as of this encounter (statuses as of 09/05/2022) [facility] note* Diagnosis Uncontrolled type 2 diabetes mellitus with hyperglycemia (HCC)- Primary documented in this encounter [facility] note* Diagnosis Uncontrolled type 2 diabetes mellitus with hyperglycemia (HCC)- Primary HTN (hypertension), benign Essential hypertension, benign Mixed hyperlipidemia Vitamin D deficiency Unspecified vitamin D deficiency Class 2 obesity due to excess calories with body mass index (BMI) of 35.0 to 35.9 in adult, unspecified whether serious comorbidity present documented in this encounter [facility] note* Diagnosis Uncontrolled type 2 diabetes mellitus with hyperglycemia (HCC)- Primary Encounter for immunization Need for other specified prophylactic vaccination against single bacterial disease Encounter for screening mammogram for breast cancer HTN (hypertension), benign Essential hypertension, benign Mixed hyperlipidemia documented in this encounter [facility] note* Diagnosis Encounter for screening mammogram for breast cancer documented in this encounter [facility] note* Diagnosis Onset Date Resolution Status Obesity acute Hypertension [facility] Work Phone: Evaluation note* Diagnosis Mixed hyperlipidemia- Primary Vitamin D deficiency Unspecified vitamin D deficiency Uncontrolled type 2 diabetes mellitus with hyperglycemia (HCC) Encounter for therapeutic drug monitoring documented in this encounter [facility] note* Diagnosis Type 2 diabetes mellitus without complication, with long-term current use of insulin (HCC)- Primary HTN (hypertension), benign Essential hypertension, benign Mixed hyperlipidemia GABBIE on CPAP Obstructive sleep apnea (adult) (pediatric) Vitamin D deficiency Unspecified vitamin D deficiency Obesity (BMI 30.0-34.9) Obesity, unspecified Encounter for screening mammogram for breast cancer documented in this encounter [facility] note* Diagnosis Encounter for screening mammogram for breast cancer documented in this encounter [facility] note* Diagnosis Onset Date Resolution Status Sleep apnea acute Diabetes chronic Hypertension chronic Immunization due noneactive Establishing care with new doctor, encounter for noneactive Seasonal allergies noneactiv e Annular psoriasis noneactive Carpal tunnel syndrome on both sides noneactive Diabetes chronic Hypertension chronic Obesity [facility] Work Phone: Evaluation note* Diagnosis Encounter for screening mammogram for breast cancer [facility] noteNo assessment information availableBlBluffton [facility] Work Phone: [facility] (narrative)* Diagnostic Procedure Only (Routine) - Authorized Specialty Diagnoses / Procedures Referred By Contac t Referred To Contact [facility] Diagnoses Encounter for screening mammogram for breast cancer Procedures LEVON SCREENING SCREENING MAMMOGRAPHY BI 2-VIEW BREAST INC CAD MartinsPeyton, WINDOWS VMWARE ADMINISTRATOR.RESIDENTIAL CONCIERGE [address] [place] [address] [facility] [address] [place] [address] Referral ID Status Reason Start Date Expiration Date Visits Requested Visits Authorized [id number] Authorized Auto-Generat ed Referral 10/16/2021 11/15/2022 1 1 [facility] for referral (narrative)* Diagnostic Procedure Only (Routine) - Closed Specialty Diagnoses / Procedures Referred By Contac t Referred To Contact [facility] Diagnoses Encounter for screening mammogram for breast cancer Procedures LEVON SCREENING SCREENING MAMMOGRAPHY BI 2-VIEW BREAST INC CAD Peyton Martins, WINDOWS VMWARE ADMINISTRATOR.RESIDENTIAL CONCIERGE [address] [place] [address] [facility] [address] [place] [address] Referral ID Status Reason Start Date Expiration Date V isits Requested Visits Authorized [id number] Closed Auto-Generate d Referral 10/16/2021 11/15/2022 1 1 [facility] for referral (narrative)* Diagnostic Procedure Only (Routine) - Authorized Specialty Diagnoses / Procedures Referred By Contac t Referred To Contact [facility] Diagnoses Encounter for screening mammogram for breast cancer Procedures LEVON SCREENING SCREENING MAMMOGRAPHY BI 2-VIEW BREAST INC CAD Chilo Mckeon MD [address] [place] [address] [facility] [address] [place] [address] Referral ID Status Reason Start Date Expiration Date Visits Requested Visits Authorized [id number] Authorized Auto-Generat ed Referral 09/11/2022 10/11/2023 1 1 [facility] for referral (narrative)* Diagnostic Procedure Only (Routine) - Closed Specialty Diagnoses / Procedures Referred By Suzan dove Referred To Contact [facility] Diagnoses Encounter for screening mammogram for breast cancer Procedures LEVON SCREENING SCREENING MAMMOGRAPHY BI 2-VIEW BREAST INC Chilo Sow MD [address] [place] [address] [facility] [address] [place] [address] Referral ID Status Reason Start Date Expiration Date V isits Requested Visits Authorized [id number] Closed Auto-Generate d Referral 09/11/2022 10/11/2023 1 1 [facility] for referral (narrative)* Diagnostic Procedure Only (Routine) - New Request Specialty Diagnoses / Procedures Referred By Suzan dove Referred To Contact [facility] Diagnoses Encounter for screening mammogram for breast cancer Procedures LEVON SCREENING W SCOTT SCREENING DIGITAL BREAST TOMOSYNTHESIS BI SCREENING MAMMOGRAPHY BI 2-VIEW BREAST INC Chilo Sow MD [address] [place] [address] [facility] [address] [place] [address] Referral ID Status Reason Start Date Expiration Date Visits Requested Visits Authorized [id number] New Request Auto-Generat ed Referral 12/25/2023 01/23/2025 1 1 [facility] for referral (narrative)No reason for referral information availableWClermont County Hospital Work Phone: Reason for visit Narrative* Diagnostic Procedure Only (Routine) - Closed Specialty Diagnoses / Procedures Referred By Suzan dove Referred To Contact [facility] Diagnoses Encounter for screening mammogram for breast cancer Procedures LEVON SCREENING SCREENING MAMMOGRAPHY BI 2-VIEW BREAST INC Peyton Varela APRN.RESIDENTIAL CONCIERGE [address] [place] [address] [facility] [address] [place] [address] Referral ID Status Reason Start Date Expiration Date V isits Requested Visits Authorized [id number] Closed Auto-Generate d Referral 10/16/2021 11/15/2022 1 1 [facility] Narrative* Diagnostic Procedure Only (Routine) - Closed Specialty Diagnoses / Procedures Referred By Luluac t Referred To Contact [facility] Diagnoses Encounter for screening mammogram for breast cancer Procedures LEVON SCREENING SCREENING MAMMOGRAPHY BI 2-VIEW BREAST INC CAD Chilo Mckeon MD [address] [place] [address] [facility] [address] [place] [address] Referral ID Status Reason Start Date Expiration Date V isits Requested Visits Authorized [id number] Closed Auto-Generate d Referral 09/11/2022 10/11/2023 1 1 [facility] Advance Directives No Advanced Directives Records FoundDocuments on File Type Date Recorded 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 Advance Directive(s) Advance Directive(s) 10/16/2018 9:14 AM Documents on File Type Date Recorded 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 Advance Directive(s) Advance Directive(s) 10/16/2018 9:14 AM Advance Directive Response Recorded Date/ Time Living Will Yes August 23, 2018 4 :22pm Power of Conductor/Engineer Yes August 23, 2018 4:22pm Advance Directive Response Recorded Date/ Time Living Will Yes August 23, 2018 3 :22pm Power of Conductor/Engineer Yes August 23, 2018 3:22pm Reason for Referral Specialty Diagnoses / Procedures Referred By Suzan t Referred To Contact Endocrinology Diagnoses Uncontrolled type 2 diabetes mellitus with hyperglycemia (HCC) Procedures CONSULT TO ENDOCRINOLOGY OFFICE/OUTPATIENT NEW HIGH MDM 60-74 MINUTES Chilo Mckeon MD [address] [place] [address] Referral ID Status Reason Start Date Expiration Date Visits Requested Visits Authorized [id number] Authorized PCP Requested Referral 08/02/2021 08/02/2022 1 1 Chief Complaint and Reason for Visit Chief Complaint 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, 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, 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 Reason for Visit [...] or prosecute any alcohol or drug abuse patient.[facility] HospitalIn the event this information is protected by the Federal Confidentiality of Alcohol and Drug Abuse Patient Records regulations: The Federal rules restrict any use of the information to criminally investigate or prosecute any alcohol or drug abuse patient.[facility] HospitalIn the event this information is protected by the Federal Confidentiality of Alcohol and Drug Abuse Patient Records regulations: The Federal rules restrict any use of the information to criminally investigate or prosecute any alcohol or drug abuse patient.[facility] HospitalIn the event this information is protected by the Federal Confidentiality of Alcohol and Drug Abuse Patient Records regulations: The Federal rules restrict any use of the information to criminally investigate or prosecute any alcohol or drug abuse patient.[facility] HospitalIn the event this information is protected by the Federal Confidentiality of Alcohol and Drug Abuse Patient Records regulations: The Federal rules restrict any use of the information to criminally investigate or prosecute any alcohol or drug abuse patient.[facility] HospitalIn the event this information is protected by the Federal Confidentiality of Alcohol and Drug Abuse Patient Records regulations: The Federal rules restrict any use of the information to criminally investigate or prosecute any alcohol or drug abuse patient.[facility] HospitalIn the event this information is protected by the Federal Confidentiality of Alcohol and Drug Abuse Patient Records regulations: The Federal rules restrict any use of the information to criminally investigate or prosecute any alcohol or drug abuse patient.[facility] HospitalIn the event this information is protected by the Federal Confidentiality of Alcohol and Drug Abuse Patient Records regulations: The Federal rules restrict any use of the information to criminally investigate or prosecute any alcohol or drug abuse patient.[facility] HospitalIn the event this information is protected by the Federal Confidentiality of Alcohol and Drug Abuse Patient Records regulations: The Federal rules restrict any use of the information to criminally investigate or prosecute any alcohol or drug abuse patient.[facility] HospitalIn the event this information is protected by the Federal Confidentiality of Alcohol and Drug Abuse Patient Records regulations: The Federal rules restrict any use of the information to criminally investigate or prosecute any alcohol or drug abuse patient.[facility] HospitalIn the event this information is protected by the Federal Confidentiality of Alcohol and Drug Abuse Patient Records regulations: The Federal rules restrict any use of the information to criminally investigate or prosecute any alcohol or drug abuse patient.[facility] HospitalIn the event this information is protected by the Federal Confidentiality of Alcohol and Drug Abuse Patient Records regulations: The Federal rules restrict any use of the information to criminally investigate or prosecute any alcohol or drug abuse patient.[facility] HospitalIn the event this information is protected by the Federal Confidentiality of Alcohol and Drug Abuse Patient Records regulations: The Federal rules restrict any use of the information to criminally investigate or prosecute any alcohol or drug abuse patient.[facility] HospitalIn the event this information is protected by the Federal Confidentiality of Alcohol and Drug Abuse Patient Records regulations: The Federal rules restrict any use of the information to criminally investigate or prosecute any alcohol or drug abuse patient.[facility] HospitalIn the event this information is protected by the Federal Confidentiality of Alcohol and Drug Abuse Patient Records regulations: The Federal rules restrict any use of the information to criminally investigate or prosecute any alcohol or drug abuse patient.[facility] HospitalIn the event this information is protected by the Federal Confidentiality of Alcohol and Drug Abuse Patient Records regulations: The Federal rules restrict any use of the information to criminally investigate or prosecute any alcohol or drug abuse patient.[facility] HospitalIn the event this information is protected by the Federal Confidentiality of Alcohol and Drug Abuse Patient Records regulations: The Federal rules restrict any use of the information to criminally investigate or prosecute any alcohol or drug abuse patient.[facility] HospitalIn the event this information is protected by the Federal Confidentiality of Alcohol and Drug Abuse Patient Records regulations: The Federal rules restrict any use of the information to criminally investigate or prosecute any alcohol or drug abuse patient.[facility] HospitalIn the event this information is protected by the Federal Confidentiality of Alcohol and Drug Abuse Patient Records regulations: The Federal rules restrict any use of the information to criminally investigate or prosecute any alcohol or drug abuse patient.[facility] HospitalIn the event this information is protected by the Federal Confidentiality of Alcohol and Drug Abuse Patient Records regulations: The Federal rules restrict any use of the information to criminally investigate or prosecute any alcohol or drug abuse patient.[facility] Care Teams (unrecognized sec tion and content) [employer] Ax[employer] Inspector Relationship Specialty Start Date End Date Chilo Mckeon MD [address] [place] [address] PCP - General Internal Medicine 11/07/11 Ortiz Garcia, [facility], located within [facility] [address] [place] [address] Pharmacist Pharmacy 03/15/20 Enid Garcia, [facility] located [facility] [address] [place] [address] Pharmacist Pharmacy 10/11/20 [employer] Inspector Relationship Specialty Start Date End Date Chilo Mckeon MD [address] [facility] [place] [address] PCP - General Internal Medicine 11/07/11 Ortiz Garcia, [facility], located within [facility] [address] [facility] [place] [address] Pharmacist Pharmacy 03/15/20 Enid Garcia, [facility], located [facility] [address] [facility] [place] [address] Pharmacist Pharmacy 10/11/20 [employer] Inspector Relationship Specialty Start Date End Date Chilo Mckeon MD [address] [facility] [place] [address] PCP - General Internal Medicine 11/07/11 KodiAudrey morinjade, LTAC, located [facility] [address] [place] [address] Pharmacist Pharmacy 03/15/20 Eind Garcia, [facility], located [facility] [address] [facility] [place] [address] Pharmacist Pharmacy 10/11/20 [employer] Inspector Relationship Specialty Start Date End Date Chilo Mckeon MD [address] [place] [place] [address] PCP - General Internal Medicine 11/07/11 KodiAudrey morinjade, [facility], located [facility] [address] [place] [address] Pharmacist Pharmacy 03/15/20 Enid Garcia, LTAC, located within [facility] [address] [place] [address] Pharmacist Pharmacy 10/11/20 [employer] Inspector Relationship Specialty Start Date End Date Chilo Mckeon MD [address] [facility] [place] [address] PCP - General Internal Medicine [facility] [address] [place] [address] Pharmacist Pharmacy 03/15/20 Enid Garcia, LT[facility], located within [facility] [address] [facility] [place] [address] Pharmacist Pharmacy 10/11/20 [employer] Inspector Relationship Specialty Start Date End Date Chilo Mckeon MD [address] [facility] [place] [address] PCP - General Internal Medicine 11/07/11 Radha Ortiz, LTAC, located within [facility] [address] [place] [address] Pharmacist Pharmacy 03/15/20 Enid Garcia, LTAC, located within [facility] [address] [place] [address] Pharmacist Pharmacy 10/11/20 [employer] Inspector Relationship Specialty Start Date End Date Chilo Mckeon MD [address] [facility] [place] [address] PCP - General Internal Medicine 11/07/11 Kodipatience Ortiz, LTAC, located within [facility] [address] [place] [address] Pharmacist Pharmacy 03/15/20 Enid Garcia, LTAC, located within [facility] [address] [place] [address] Pharmacist Pharmacy 10/11/20 [employer] Inspector Relationship Specialty Start Date End Date Chilo Mckeon MD [address] [facility] [place] [address] PCP - General Internal Medicine 11/07/11 Ortiz Garcia, LTAC, located within [facility] [address] [place] [address] Pharmacist Pharmacy 03/15/20 Enid Garcia, LTAC, located within [facility] [address] [place] [address] Pharmacist Pharmacy 10/11/20 [employer] Inspector Relationship Specialty Start Date End Date Chilo Mckeon MD [address] [place] [address] PCP - General Internal Medicine 11/07/11 Ortiz Garcia, LTAC, located within [facility] [address] [facility] [place] [address] Pharmacist Pharmacy 03/15/20 Enid Garcia, LTAC, located within [facility] [address] [facility] [place] [address] Pharmacist Pharmacy 10/11/20 [employer] Inspector Relationship Specialty Start Date End Date Chilo Mckeon MD [address] [facility] [place] [address] PCP - General Internal Medicine 11/07/11 Ortiz Garcia, LTAC, located within [facility] [address] [facility] [place] [address] Pharmacist Pharmacy 03/15/20 Enid Garcia, LTAC, located within [facility] [address] [place] [address] Pharmacist Pharmacy 10/11/20 [employer] Inspector Relationship Specialty Start Date End Date Chilo Mckeon MD [address] [place] [address] PCP - General Internal Medicine 11/07/11 Ortiz Garcia, LTAC, located within [facility] [address] [place] [address] Pharmacist Pharmacy 03/15/20 [facility] [address] [place] [address] Pharmacist Pharmacy 10/11/20 [employer] Inspector Relationship Specialty Start Date End Date Chilo Mckeon MD [address] [place] [address] PCP - General Internal Medicine 11/07/11 [facility] [address] [place] [address] Pharmacist Pharmacy 03/15/20 [facility] [address] [facility] [place] [address] Pharmacist Pharmacy 10/11/20 [employer] Ax[employer] Inspector Relationship Specialty Start Date End Date Chilo Mckeon MD [address] [place] [address] PCP - General Internal Medicine 11/07/11 Ortiz Garcia, LTAC, located within [facility] [address] [place] [address] Pharmacist Pharmacy 03/15/20 [facility] [address] [place] [address] Pharmacist Pharmacy 10/11/20 Team Status: Active Member [...] Hidalgo Attending Provider, Referring Pr ovider Active [employer] Inspector Relationship Specialty Start Date End Date Chilo Mckeon MD [address] [facility] [place] [address] PCP - General Internal Medicine 11/07/11 Enid Garcia, LT[facility], located within [facility] [address] [facility] [place] [address] Pharmacist Pharmacy 10/11/20 [employer] Inspector Relationship Specialty Start Date End Date Chilo Mckeon MD [address] [facility] [place] [address] PCP - General Internal Medicine 11/07/11 [facility] [address] [facility] [place] [address] Pharmacist Pharmacy 10/11/20 [employer] Inspector Relationship Specialty Start Date End Date Chilo Mckeon MD [address] [facility] [place] [address] PCP - General Internal Medicine 11/07/11 [facility] [address] [facility] [place] [address] Pharmacist Pharmacy 10/11/20 [employer] Inspector Relationship Specialty Start Date End Date Chilo Mckeon MD [address] [facility] [place] [address] PCP - General Internal Medicine 11/07/11 [facility] [address] [facility] [place] [address] Pharmacist Pharmacy 10/11/20 Peyton Martins, WINDOWS [employer] ADMINISTRATOR.RESIDENTIAL CONCIERGE [address] [facility] [place] [address] Subsurface Augmentee Operator Internal Medicine 03/09/24 Karo Amato, WINDOWS [employer] ADMINISTRATOR.SENIOR MICROSTRATEGY DEVELOPER [address] [place] [address] [facility] Internal Medicine 03/09/24 [employer] Inspector Relationship Specialty Start Date End Date Chilo Mckeon MD [address] [place] [address] PCP - General Internal Medicine 11/07/11 [facility] [address] [facility] [place] [address] Pharmacist Pharmacy 10/11/20 Peyton Martins, WINDOWS [employer] ADMINISTRATOR.RESIDENTIAL CONCIERGE [address] [place] [address] [facility] Internal Medicine 03/09/24 Karo Amato, WINDOWS [employer] ADMINISTRATOR.SENIOR MICROSTRATEGY DEVELOPER [address] [place] [address] [facility] Internal Medicine 03/09/24 Team Status: Active Member [...] Inactive Member Role Status Dates Barbara Knott 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, 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-C Attending Provider Active Start: May 12, 2024 End: May 12, 2024 Barbara Knott 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, 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-C Referring Provider Active Start: May 12, 2024 End: May 12, 2024 Dr. Hector Hernandez MD Primary Care Provider Active Start: May 12, 2024 End: May 12, 2024 Team Status: Inactive Member Role Status Dates Dr. Hector Hernandez MD Primary Care Provider Active Start: May 21, 2024 End: May 21, 2024 Barbara Knott 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, 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-C Attending Provider Active Start: May 21, 2024 End: May 21, 2024 Barbara Knott 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, 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-C Referring Provider Active Start: May 21, 2024 [...] May 27, 2024 End: May 27, 2024 ORSALIA Hidalgo Attending Provider Active Start: May 27, 2024 End: May 27, 2024 ROSALIA Hidalgo Referring Provider Active Start: May 27, 2024 End: May 27, 2024 [employer] Inspector Relationship Specialty Start Date End Date Chilo Mckeon MD [address] [place], [place] [address] PCP - General Internal Medicine 11/07/11 Enid Garcia RPh [address] [place], [place] [id number] Pharmacist Pharmacy 10/11/20 Peyton Martins APRN.RESIDENTIAL CONCIERGE [address] [place], [place] [id number] Subsurface Augmentee Operator Internal Medicine 03/09/24 Karo Amato, WINDOWS [employer] ADMINISTRATOR.SENIOR MICROSTRATEGY DEVELOPER [address] [facility], [place] [address] [facility] Internal Medicine 06/23/24 Team Status: Active Member Role/Relationship Status Dates Dr. Hector Hernandez MD Primary Care Provider Active Team Status: Inactive Member Role/Relationship Status Dates Dr. Hector Hernandez MD Primary Care Provider Active Start: November 25, 2024 End: November 25, 2024 Dr. eHctor Hernandez MD Referring Provider Active Start: November 25, 2024 End: November 25, 2024 Sylwia Gomez NP-C Attending Provider Active Start: November 25, 2024 End: November 25, 2024 [employer] Inspector Relationship Specialty Start Date End Date Hector Hernandez MD [address] [facility], [place] [address] PCP - General Internal Medicine 08/10/24 [facility], located within [facility] [address] [facility], [place] [address] Pharmacist Pharmacy 10/11/20 Peyton Martins APRN.RESIDENTIAL CONCIERGE [address] [facility], [place] [address] [facility] Internal Medicine 03/09/24 Karo Amato WINDOWS [employer] ADMINISTRATOR.SENIOR MICROSTRATEGY DEVELOPER [address] [facility] [address] [facility] Internal Medicine 06/23/24 Reason for Visit (unrecogniz ed section and content) Reason Onset Date Comments Refill Request 08/11/2021 Reason Comments Follow Up Reason Comments 4 month f/u Reason Comments Release Of Medical Records Reason Comments F/U 4 month Labs Prior Reason Onset Date Comments Population Health Navigation Outreach [facility] [place] Reason Onset Date Comments Population Health Navigation Outreach 02/21/2024 [employer] [facility] [place] Reason Onset Date Comments Population Health Navigation Outreach 05/05/2024 [employer] [facility] [place] Reason Onset Date Comments Population Health Navigation Outreach 06/08/2024 [employer] [facility] [place] Reason Onset Date Comments Population Health Navigation Outreach 08/04/2024 [employer] [facility] [place] Reason Onset Date Comments Allied Health Visit [...] section and content) DATE CREATED AUTHOR 11/26/2024 [facility] DATE CREATED AUTHOR AUTHOR'S OCTAVIO MONTANO 11/27/2024 [facility] FOR RECORDS PERTAINING TO PATIENTS WHO [...] BE BASED ON THE PRIMARY CLINICAL RECORDS. [employer] [facility]. provides no warranty or guarantee of the accuracy or completeness of information in this document.
== END | disposition home or self-care (01) ==
LOC: CVS 08:43
PROVIDERS: PCP Internal Medicine; Referring Provider Ophthalmology; Visit Provider Ophthalmology
DX: I65.23 Occlusion and stenosis of bilateral carotid arteries (principal)
CPT/HCPCS: 93880